=== PATIENT | male | born 1950 | race Caucasian/White ===

== ENCOUNTER 2017-04-29 01:31 | Emergency (ER) | payer MEDICARE, OTHER, MEDICAID ==
[~2017-04-29] VITALS: Ht 177.8 cm; Wt 83.5 kg
[~2017-04-29 01:31] MED LIST: ASPIR-LOW81 MG PO; CRESTOR40 MG PO; FISH OIL 1,0001 EAC2 PO; FLAX OIL1000 MG PO; HUMALOG100 UNIT/1 SUB-Q; LISINOPRIL2.5 MG PO; METOPROLOL SUCC25 MG PO; NIASPAN500 MG PO; VITAMIN D31000 UNIT PO; VITAMIN D32000 UNIT PO; ZOFRAN ODT8 MG PO
[2017-04-29] MEDS ORDERED: ZOFRAN ODT4 MG PO (03:51)
== END 2017-04-29 04:28 | disposition home or self-care (01) ==
LOC: ED 01:31
DX: R11.2 Nausea with vomiting, unspecified (principal); R19.7 Diarrhea, unspecified; E11.9 Type 2 diabetes mellitus without complications; Z88.5 Allergy status to narcotic agent; Z79.82 Long term (current) use of aspirin; Z79.899 Other long term (current) drug therapy
CPT/HCPCS: 80053; 81001; 82010; 83690; 85025; 96361; 96374; 96375; 99284; J2405; J2550; J7030

== ENCOUNTER 2017-05-02 16:55 | Emergency (ER) | payer MEDICARE, OTHER, MEDICAID ==
[~2017-05-02] VITALS: Ht 177.8 cm; Wt 83.5 kg
[~2017-05-02 16:55] MED LIST changes: +ZOFRAN ODT4 MG PO
[2017-05-02] MEDS ORDERED: CLOPIDOGREL75 MG PO (17:16)
[2017-05-02] MEDS ORDERED: PROMETHAZINE HC25 M1 PO (17:17)
[2017-05-02] MEDS ORDERED: ZOFRAN ODT4 MG PO (19:25)
== END 2017-05-02 19:44 | disposition home or self-care (01) ==
LOC: ED 16:55
DX: R42 Dizziness and giddiness (principal); E11.9 Type 2 diabetes mellitus without complications; N19 Unspecified kidney failure; Z88.5 Allergy status to narcotic agent; Z88.8 Allergy status to other drugs, medicaments and biological substances; Z79.4 Long term (current) use of insulin; Z79.82 Long term (current) use of aspirin; Z79.899 Other long term (current) drug therapy
CPT/HCPCS: 80053; 85025; 96361; 96374; 96375; 96376; 99283; J2060; J2405; J7030

== ENCOUNTER 2017-05-06 21:36 | Emergency (ER) | payer MEDICARE, OTHER, MEDICAID ==
[~2017-05-06] VITALS: Ht 177.8 cm; Wt 83.5 kg
[~2017-05-06 21:36] MED LIST changes: +CLOPIDOGREL75 MG PO; +PROMETHAZINE HC25 M1 PO
[2017-05-07] MEDS ORDERED: MECLIZINE HCL25 MG PO (00:06)
[2017-05-07] MEDS ORDERED: TRANSDERM-SCOP1 EACH TD (00:06)
[2017-05-07] MEDS ORDERED: ZOFRAN ODT4 MG PO (00:06)
== END 2017-05-07 00:20 | disposition home or self-care (01) ==
LOC: ED 21:36
DX: H81.10 Benign paroxysmal vertigo, unspecified ear (principal); R11.10 Vomiting, unspecified; E11.9 Type 2 diabetes mellitus without complications; Z88.5 Allergy status to narcotic agent; Z79.899 Other long term (current) drug therapy; Z79.4 Long term (current) use of insulin; Z79.82 Long term (current) use of aspirin
CPT/HCPCS: 36415; 80053; 82010; 82800; 85025; 96361; 96374; 99283; J2405; J7030

== ENCOUNTER 2017-05-12 14:40 | Emergency (ER) | payer MEDICARE, OTHER, MEDICAID ==
[~2017-05-12] VITALS: Ht 177.8 cm; Wt 83.5 kg
[~2017-05-12 14:40] MED LIST changes: +MECLIZINE HCL25 MG PO; +TRANSDERM-SCOP1 EACH TD
[2017-05-12] MEDS ORDERED: DOXYCYCLINE HY100 MG PO (19:40)
--- NOTE | 2017-05-12 20:31 | EKG ---
[facility] [address] [place] [address] Signed Normal sinus rhythm Normal ECG When compared with ECG of 10-FEB-2017 15:37, No significant change was found Confirmed by MURIEL VILLANUEVA MD ([id number]) on 05/12/2017 8:31:39 PM Electronically Signed By: MURIEL VILLANUEVA MD 05/12/172030 PATIENT NAME: MARGARITA PERDOMO JOSE Electrocardiogram DATE OF : 50 PHYSICIAN: MURIEL VILLANUEVA MD REPORT #: [id number] REPORT IS CONFIDENTIAL AND NOT TO BE RELEASED WITHOUT AUTHORIZATION
== END 2017-05-12 20:00 | disposition home or self-care (01) ==
LOC: ED 14:40
DX: E11.621 Type 2 diabetes mellitus with foot ulcer (principal); L97.509 Non-pressure chronic ulcer of other part of unspecified foot with unspecified severity; E11.649 Type 2 diabetes mellitus with hypoglycemia without coma; Z88.5 Allergy status to narcotic agent; Z79.899 Other long term (current) drug therapy; Z79.82 Long term (current) use of aspirin; Z79.4 Long term (current) use of insulin
CPT/HCPCS: 80053; 83605; 84484; 85025; 87040; 93005; 93010; 99284

== ENCOUNTER 2018-01-12 17:18 | Emergency (ER) | payer MEDICARE, OTHER, MEDICAID ==
[~2018-01-12] VITALS: Ht 177.8 cm; Wt 87.1 kg
[~2018-01-12 17:18] MED LIST changes: +DOXYCYCLINE HY100 MG PO
--- NOTE | 2018-01-14 07:25 | EKG ---
[facility] [address] [facility] [place], [place] [address] Signed Sinus rhythm with 1st degree AV block Otherwise normal ECG When compared with ECG of 12-MAY-2017 15:40, No significant change was found Confirmed by ZOË COSBY MD ([id number]) on 01/14/2018 7:25:24 AM Electronically Signed By: ZOË COSBY MD 01/14/18 0725 PATIENT NAME: CONORMARGARITANicolle GARCIA Electrocardiogram DATE OF : 50 PHYSICIAN: ZOË COSBY MD REPORT #: [id number] REPORT IS CONFIDENTIAL AND NOT TO BE RELEASED WITHOUT AUTHORIZATION
== END 2018-01-12 20:48 | disposition home or self-care (01) ==
LOC: ED 17:18
DX: R55 Syncope and collapse (principal); E10.9 Type 1 diabetes mellitus without complications; Z88.5 Allergy status to narcotic agent; Z88.8 Allergy status to other drugs, medicaments and biological substances; Z79.899 Other long term (current) drug therapy
CPT/HCPCS: 80053; 84484; 85025; 93005; 93010; 99284

== ENCOUNTER 2018-11-06 02:45 | Emergency (ER) | payer MEDICARE, OTHER, MEDICAID ==
[~2018-11-06] VITALS: Ht 172.7 cm; Wt 88.5 kg
[~2018-11-06 02:45] MED LIST changes: +FAMOTIDINE40 MG PO; +LISINOPRIL2.5 MG; +NEURONTIN300 MG PO; +SALSALATE500 MG PO
--- OUTSIDE RECORDS SUMMARY | 2018-11-06 02:50 | XMS ---
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 Care History Medical/Surgical 01/22/2018 [facility] - Per patient PCP Dr Zamora "Patient needs IV fluids for hypotension" No one else can help with this per Dr Zamora. - Possible outpatient referral for IV fluids if needed. Care Recommendation: This patient has had 5 or more Emergency Department visits in the last 12 months. Patient requires education on the scope and purpose of the ED as an acute care provider not a Primary Care Provider and should not be utilized for chronic conditions. If patient returns to ED please contact Community Health WorkerAmy at [phone]. These are guidelines and the provider should exercise clinical judgment when providing care. E.D. VISIT COUNT (12 MO.) [address] [facility] TOTAL 3 NOTE: Visits indicate total known visits. ED/UCC VISIT TRACKING (12 MO.) 11/06/2018 02:46 [facility] [place] TYPE: Emergency COMPLAINT: - FALL,DIABETIC ISSUES 10/14/2018 04:49 [facility] [place] TYPE: Emergency COMPLAINT: - ALT LOC DIAGNOSES: - Altered mental status, unspecified - Other intermodal customer service (current) drug therapy - Type 2 diabetes mellitus with ketoacidosis without coma 01/12/2018 17:[address] [facility] TYPE: Emergency COMPLAINT: - SYNCOPE DIAGNOSES: - Type 1 diabetes mellitus without complications - Allergy status to other drugs, medicaments and biological substances status - Syncope and collapse - Other fdc (current) drug therapy - Allergy status to narcotic agent status INPATIENT VISIT TRACKING (12 MO.) 10/14/2018 08:59 [facility] TYPE: General Medicine DIAGNOSES: - Hyperosmolality and hypernatremia - Acute kidney failure with tubular necrosis - Non-ST elevation (NSTEMI) myocardial infarction - Anemia in other chronic diseases classified elsewhere - Acute kidney failure, unspecified - Type 1 diabetes mellitus with diabetic nephropathy - Chronic kidney disease, stage 3 (moderate) - Other specified personal risk factors, not elsewhere classified - DKA coma - Chronic kidney disease, unspecified - Metabolic encephalopathy - Acidosis - Type 1 diabetes mellitus with ketoacidosis without coma - Gastrointestinal hemorrhage, unspecified [email or web address]
[2018-11-06] MEDS ORDERED: LANTUS100 UNITS/ SUB-Q (03:10)
== END 2018-11-06 05:30 | disposition home or self-care (01) ==
LOC: ED 02:45
DX: E11.649 Type 2 diabetes mellitus with hypoglycemia without coma (principal); T38.3X5A Adverse effect of insulin and oral hypoglycemic [antidiabetic] drugs, initial encounter; Z88.5 Allergy status to narcotic agent; Z91.09 Other allergy status, other than to drugs and biological substances; Z79.4 Long term (current) use of insulin; Z79.899 Other long term (current) drug therapy; Z23 Encounter for immunization
CPT/HCPCS: 70450; 80053; 81001; 85025; 90471; 90715; 96374; 99285-25

== ENCOUNTER → 2018-11-16 | Emergency (ER) | payer MEDICARE, OTHER, MEDICAID ==
[~2018-11-16] VITALS: Ht 172.7 cm; Wt 88.5 kg
[~2018-11-16] MED LIST changes: +LANTUS100 UNITS/ SUB-Q
--- OUTSIDE RECORDS SUMMARY | 2018-11-16 13:52 | XMS ---
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 Care History Medical/Surgical 01/22/2018 [facility] - Per patient PCP Dr Lester "Patient needs IV fluids for hypotension" No one else can help with this per Dr Lester. - Possible outpatient referral for IV fluids [...] returns to ED please contact Community Health Worker Amy at [phone]. These are guidelines and the provider should exercise clinical judgment when providing care. E.D. VISIT COUNT (12 MO.) 4 [facility] TOTAL 4 NOTE: Visits indicate total known visits. ED/UCC VISIT TRACKING (12 MO.) 11/16/2018 13:49 [facility] [place] TYPE: Emergency COMPLAINT: - DIABETIC PROBLEM 11/06/2018 02:46 [facility] [place] TYPE: Emergency COMPLAINT: - FALL,DIABETIC ISSUES DIAGNOSES: - Hypoglycemia, unspecified - Allergy status to narcotic agent status - buttermaker helper (current) use of insulin - Other allergy status, other than to drugs and biological substances - Type 2 diabetes mellitus with hypoglycemia without coma - Adverse effect of insulin and oral hypoglycemic [antidiabetic] drugs, initial encounter - Encounter for immunization - Other fci (current) drug therapy 10/14/2018 04:49 [facility] [place] TYPE: Emergency COMPLAINT: - ALT LOC DIAGNOSES: - Altered mental status, unspecified - Other longshore equipment operator (current) drug therapy - Type 2 diabetes mellitus with ketoacidosis without coma 01/12/2018 17:19 [facility] [place] TYPE: Emergency COMPLAINT: - SYNCOPE DIAGNOSES: - Type 1 diabetes mellitus without complications - Allergy status to other drugs, medicaments and biological substances status - Syncope and collapse - Other fci (current) drug therapy - Allergy status to narcotic agent status INPATIENT VISIT TRACKING (12 MO.) 10/14/2018 08:59 [facility] [place] TYPE: General Medicine DIAGNOSES: - Hyperosmolality and [...] ketoacidosis without coma - Gastrointestinal hemorrhage, unspecified [id number]
== END ==
LOC: ED 13:49
DX: E10.9 Type 1 diabetes mellitus without complications (principal); Z91.09 Other allergy status, other than to drugs and biological substances; Z88.5 Allergy status to narcotic agent; Z79.4 Long term (current) use of insulin
CPT/HCPCS: 80053; 82010; 82800; 85025; 96360; 99284-25; J7030

== ENCOUNTER 2019-01-04 14:48 | Inpatient (IN) | payer MEDICARE, OTHER ==
[~2019-01-04] VITALS: Ht 172.7 cm; Wt 88.5 kg
--- OUTSIDE RECORDS SUMMARY | 2019-01-04 14:50 | XMS ---
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 Care History Medical/Surgical 01/22/2018 [facility] - Per patient PCP Dr Zamora "Patient [...] ED please contact Community Health WorkerAmy at [phone]. These are guidelines and the provider should exercise clinical judgment when providing care. E.D. VISIT COUNT (12 MO.) 5 [facility] TOTAL 5 NOTE: Visits indicate total known visits. ED/UCC VISIT TRACKING (12 MO.) 01/04/2019 14:49 [facility] [place] TYPE: Emergency COMPLAINT: - BLOOD SUGAR PROBLEM 11/16/2018 13:49 [facility] [place] TYPE: Emergency COMPLAINT: - DIABETIC PROBLEM DIAGNOSES: - Type 1 diabetes mellitus without complications - alf (current) use of insulin - Hyperglycemia, unspecified - Other allergy status, other than to drugs and biological substances - Allergy status to narcotic agent status 11/06/2018 02:46 [facility] [place] TYPE: Emergency COMPLAINT: - FALL,DIABETIC ISSUES DIAGNOSES: - Hypoglycemia, unspecified - Allergy status to narcotic agent status - alf (current) use of insulin - Other allergy status, other than to drugs and biological substances - Type 2 diabetes mellitus with hypoglycemia without coma - Adverse effect of insulin and oral hypoglycemic [antidiabetic] drugs, initial encounter - Encounter for immunization - Other moth exterminator (current) drug therapy 10/14/2018 04:49 [facility] [place] TYPE: Emergency COMPLAINT: - ALT LOC DIAGNOSES: - Altered mental status, unspecified - Other detention (current) drug therapy - Type 2 diabetes mellitus with ketoacidosis without coma 01/12/2018 17:19 [facility] [place] TYPE: Emergency COMPLAINT: - SYNCOPE DIAGNOSES: - Type 1 diabetes mellitus without complications - Allergy status to other drugs, medicaments and biological substances status - Syncope and collapse - Other moth exterminator (current) drug therapy - Allergy status to narcotic agent status INPATIENT VISIT TRACKING (12 MO.) 10/14/2018 08:59 [facility] TYPE: General Medicine DIAGNOSES: - Hyperosmolality and [...] ketoacidosis without coma - Gastrointestinal hemorrhage, unspecified [email or web address]
--- NOTE | 2019-01-04 19:23 | NUR ---
MEDICATIONS GIVEN (SEE MAR). BOTH IVS FLUSHED WITH BRISK BLOOD RETURN. SIDE RAILS UP. CALL LIGHT WITHIN REACH.
--- NOTE | 2019-01-04 20:00 | NUR ---
RECEIVED REPORT AT 1900, PT JUST CAME UP FROM ED. INSULIN DRIP IS RUNNING. PT HAS EXHIBITED SOME INAPROTRIATE GROPPING BEHAVIOR WITH CHIEF ESTIMATOR AFTER ARRIVING ON FLOOR. NO NEW CONCERNS NOTED SO FAR.
--- NOTE | 2019-01-04 20:59 | NUR ---
I did patients blood sugar check and it was at a reading of 205.
--- NOTE | 2019-01-04 22:00 | NUR ---
PT AT THIS TIME HAS NOT VOIDED SO FAR SINCE START OF THIS SHIFT. FLUID BOLUS TO BE GIVEN. WILL CONTINUE TO MONITOR. ALL LOBES ARE CLEAR BUT DIMINISHED. PT DID NOT PUT FORTH MUCH EFFORT FOR DEEP BREATHING DURING AUSCULTATION. PT IS ORINETED TO PLACE, SELF AND CIRCUMSTANCE ONLY. ABD SOUNDS ARE PRESENT. NO PERIPHERAL EDEMA NOTED. OVERALL STRENGTH +4. WILL CONTINUE TO MONITOR NEUROLOGICAL STATUS.
--- NOTE | 2019-01-04 22:20 | NUR ---
RN Journeyman Level Acoustic Analyst Kaiden, and myself checked patient for incontience and there was no result.
--- NOTE | 2019-01-04 22:48 | NUR ---
i updated LEANA Hope and she suggested we do a bladder scan because of no output. we will do this at 2300.
--- NOTE | 2019-01-05 | NUR ---
PT AT THIS TIME IS SLEEPING. PT SO FAR HAS VOIDED 350ML USING THE URINAL. PT IS ORINETED TO PLACE, PERSON AND CIRCUMSTANCE STILL AT THIS TIME. AT TIMES THE ANSWERS GIVEN BY PT DO NOT MATCH THE QUESTIONS ASKED BY WRAP YARN SORTER. WILL CONTINUE TO MONITOR. I WONDER WHAT THIS PT'S BASELINE IS. V/S ARE WDL, ALL LOBES ARE CLEAR, NO EDEMA NOTED.
--- NOTE | 2019-01-05 02:00 | NUR ---
PT IS SLEEPING AT THIS TIME. 3G IV MG+2 GIVEN, K+ IV IS STILL RUNNING. LAST BG WAS 116. INSULIN DRIP AT 0.6.
--- NOTE | 2019-01-05 04:00 | NUR ---
PT IS SLEEPING AT THIS TIME. V/S ARE WDL OVERALL. PT HOWEVER DID HAVE A COUPLE OF EPISODES OF DEREK IT SEEMS. O2 SATS DROPPED INTO THE LOW 80'S WHILE SLEEPING.
--- NOTE | 2019-01-05 05:41 | NUR ---
SINCE ARRIVAL ON FLOOR AT 1850, PT HAS BEEN ON AN INSULIN DRIP. PT HAS ALSO RECEIVED 1L LR BOLUS, K+ 40MEQ, MAG+2 3G. PT IS ORIENTED TO PLACE, PERSON AND CIRCUMSTANCE. PT HOWEVER DOES NOT ALWAYS ANSWER PROPERLY TO QUESTIONS ASKED. OVERALL STRENGTH +4. A MILD TREMOR WAS NOTED IN HIS RIGHT ARM AT TIMES. V/S ORVERALL ARE WDL, URINE OUTPUT IS ADEQUATE. LOBES ARE CLEAR, ABD SOUNDS ARE PRESENT. UNK WHEN LAST BM WAS. PT BEHAVIOR/ COMMENTS AT TIMES ARE INAPROPRIATE TOWARD STAFF. THESE COMMENTS ARE SEXUAL IN NATURE. NO NEW CONCERNS NOTED AT THIS TIME.
--- NOTE | 2019-01-05 07:30 | NUR ---
report recieved. patient is restful IN BED. IVF/INSULIN GTT PATIENT. NO DISTRESS NOTED.
--- NOTE | 2019-01-05 08:00 | NUR ---
ACCUCHECK-188. INSULIN GTT INCREASED TO 2.8 PER PROTOCOL. ASSESSMENT DONE. PATIENT IS DROWSY. REMAINS NPO.
--- NOTE | 2019-01-05 09:00 | NUR ---
ACCUCHECK 177. INSULIN GTT 2.4 UNITS/HR. NO CHANGES.
--- NOTE | 2019-01-05 10:00 | NUR ---
162 IS ACCUCHECK. INSULIN GTT TO 1 UNIT. SITTING UP IN BED WATCHING TV.
[2019-01-05] MEDS ORDERED: LYRICA100 MG PO (10:52)
[2019-01-05] MEDS ORDERED: FAMOTIDINE40 MG PO (10:52)
[2019-01-05] MEDS ORDERED: ROSUVASTATIN CA40 MG PO (10:53)
[2019-01-05] MEDS ORDERED: CLOPIDOGREL75 MG PO (10:53)
--- NOTE | 2019-01-05 11:00 | NUR ---
ACCUCHECK-151, INSUIN GTT REMAINS AT 1 UNIT HR.
--- NOTE | 2019-01-05 12:00 | NUR ---
ASSESSMENT UNCHANGED. ACCUCHECK-163. INSULIN GTT INREASED TO 1.2 UNITS/HR
--- NOTE | 2019-01-05 12:19 | NUR ---
MED REC COMPLETE
--- NOTE | 2019-01-05 13:00 | NUR ---
VOIDED 300 ML OF COLTON URINE. TRANSFERRED TO CHAIR WITH ASSIST. SPONGE BATH GIVEN. ACCUCHECK-170.INSULIN GTT REMAINS AT 1.2 UNITS/HR. REMAINS ON Q 1 HR ACCUCHECKS.
--- NOTE | 2019-01-05 13:15 | NUR ---
DR. GUNN HERE TO SEE PATIENT.
--- NOTE | 2019-01-05 13:30 | NUR ---
ORDERS RECIEVED TO DC INSULIN GTT AND IVF. THIS DONE. PATIENT IS TO USE HIS OWN INSULIN PUMP HE DOES AT HOME. WITH LAST ACCUCHECK BEING 170. PATIENT INSULIN PUMP TO GIVE 1.1 UNIT INSULIN. THIS DONE. PATIENT IS NOT SURE WHAT THE BASAL RATE IS OR HOW TO TELL WHAT THE RATE IS. WILL RECHECK ACCUCHECK AT 1400.
--- NOTE | 2019-01-05 15:00 | NUR ---
ACCUCHECK-231. BOLUS WITH 1.6 UNITS INSULIN VIA PATIENT PUMP. PUMP INDICATES DELIVERY.
--- NOTE | 2019-01-05 15:35 | NUR ---
AGNIESZKA MARTIN RN HERE TO HELP REVIEW PATIENT INSULIN PUMP, BASAL RATE-1.5 UNITS ACCORDING TO PUMP. PATIENT IS HAVING MANY QUESTIONS ON HOW TO UES INSULIN PUMP. DR. TORO IN [place] IS PT FOREIGN TRADE TEACHER. WILL CONTINUE TO MONITOR Q 1 HR BLOOD SUGAR.
--- NOTE | 2019-01-05 17:00 | NUR ---
accucheck-252. PATIENT IS TALKING WITH METTONICS ON PHONE.
--- NOTE | 2019-01-05 17:20 | NUR ---
PATIENT LOST CONNECTION ON PHONE WHEN TALKING TO [employer]. CLEAR LIQUID TRAY GIVEN.
--- NOTE | 2019-01-05 17:53 | NUR ---
PATIENT HAS INSULIN PUMP OFF AT THIS TIME, HE WORKING TO SEE IF THE PUMP IN WORKING. PATIENT PROGRAM PUMP TO EXPELL 5 UNIT OF INSULIN, APPEARS TO BE WORKING. ENCOURAGED TO REAPPLIED PUMP.
--- NOTE | 2019-01-05 18:00 | NUR ---
[facility]
--- NOTE | 2019-01-05 18:20 | NUR ---
GAVE SELF BOLUS OF2.4 UNITS. ENCOUAGED TO USE INSULIN PUMP.
--- NOTE | 2019-01-05 18:45 | NUR ---
INSULIN PUMP DC'D PER ORDERS. WILL START ACCUCHECKS AC AND HS. INSULIN WITH SS.
--- NOTE | 2019-01-05 20:34 | NUR ---
HAS BEEN SITTING IN CHAIR, LORNE WELL. WHEN ASKED AFFIRMED WAS HUNGRY, GIVEN TURKEY SANDWICH AND APPLE SAUCE.
--- NOTE | 2019-01-05 21:40 | NUR ---
BS 338, GIVEN 9 UNITS INSULIN PER ORDER. CONT TO WANT TO SIT UP IN CHAIR.
--- NOTE | 2019-01-05 23:22 | NUR ---
PT BACK TO BED, HAD SMALL AMT DIFFICULTY GETTING TO FEET BUT WAS STEADY ONCE UP. NO C/O.
--- NOTE | 2019-01-06 00:59 | NUR ---
SLEEPING, SNORING SOFTLY.
--- NOTE | 2019-01-06 02:31 | NUR ---
CONT TO SLEEP MOST OF TIME.
--- NOTE | 2019-01-06 04:17 | NUR ---
IS ASLEEP. NO CHANGE.
--- NOTE | 2019-01-06 05:25 | NUR ---
AWAKENED FOR VS. VOIDING LARGE AMT URINE. WHEN DISCUSSED POSS DISCHARGE TODAY OR TOMORROW PT STATES THAT IS OK BUT HIS INSULIN SUPPLIES ARE LOCKED IN HIS GUN LOCKER AND HE STILL CAN'T REMEMBER THE COMBINATION.HE KEEP SUPPLEIS LOCKED UP IN CASE OF POTENTIAL THEFT. PT STATES IS LOOKING FORWARD TO BREAKFAST.
--- NOTE | 2019-01-06 06:37 | NUR ---
PT HAD A GOOD NIGHT, SLEPT WELL. HAS BEEN VOIDING LARGE AMTS URINE. IS CONCERNED THAT HE STILL CAN'T REMEMBER TO SAFE AT HOME WHERE HE KEEPS HIS INSULIN SUPPLIES. LOOKING FORWARD TO BREAKFAST.
--- NOTE | 2019-01-06 09:56 | NUR ---
TOOK BREAKFAST WELL. IS W/O PAIN.
--- NOTE | 2019-01-06 10:00 | NUR ---
RESTFUL. WATCHING TV. IS W/O R/O, C/O.
--- NOTE | 2019-01-06 11:15 | NUR ---
UP TO SHOWER.
--- NOTE | 2019-01-06 12:00 | NUR ---
TOLERATED SHOWER WELL. SITTING UP IN CHAIR FOR LUNCH. ACCUCHECK-320. HUMALOG 7 UNITS SQ GIVEN. ASSESSMENT UNCHANGED.
--- NOTE | 2019-01-06 12:20 | CONS ---
[facility] [address] [place], [place] [address] Signed DATE OF CONSULTATION: 01/05/2019 PROBLEM: At least one episode of possible hematemesis. HISTORY OF PRESENT ILLNESS: This 68-year-old white man was admitted yesterday having presented to the emergency room, initially evaluated by Dr. Rios. He had been seen in the emergency room on few occasions with elevated serum glucose of greater than 500, known to have diabetes and with an insulin pump. He was admitted by Dr. Berman for further management considering he had clinical findings of diabetic ketoacidosis with a blood sugar of 538 at presentation, relative acidosis with a pH of 7.32, and a bicarb of 15.8 and elevated creatinine of 2.16. The patient says that he recently underwent a change of his insulin pump to an older model that he believes was nonfunctional. He has been in the intensive care unit with insulin therapy, IV fluid resuscitation, and close monitoring. He is currently getting Humulin regular insulin intravenously by drip. The patient described a fair amount of protracted nausea and vomiting prior to arrival to the hospital and described what sounds like a small amount of hematemesis. He denies any blood per rectum and has had no further such episodes. Concern was maintained by Dr. Berman. This may represent a Christine-Jon tear or something of that sort. The patient's initial hematocrit was 36.7, currently 33.0 with no further episodes of hematemesis. His platelet count is normal at 205877. The patient has no prior history of endoscopic evaluation (he thinks). He has no epigastric or upper abdominal pain and no dysphagia. He has no lower abdominal pain either. His primary physician is Dr. Lester. REVIEW OF SYSTEMS: He denies any shortness of breath or chest pain. He has no nausea or current vomiting. Denies any further hematemesis or blood per rectum. Denies any chest pain. PHYSICAL EXAMINATION: GENERAL: This is a pleasant, alert, oriented man who does not look to be systemically toxic at this time. He has a white benitez. HEENT: Mucous membranes are moist. Trachea is midline. There is no carotid bruit. CHEST: Clear. HEART: Regular. ABDOMEN: Soft and nondistended without sign of ascites. There is no focal mass or tenderness. EXTREMITIES: Showed no clubbing, cyanosis, or edema. There are no petechiae. Electronically Signed By: DICK HUANG MD 01/06/19 1220 PATIENT NAME: MARGARITA PERDOMO CONSULTATION DATE OF : 50 REPORT #: [id number] PHYSICIAN: DICK HUANG MD PCP: VERNON LESTER MD REPORT IS CONFIDENTIAL AND NOT TO BE RELEASED WITHOUT AUTHORIZATION [facility] [address] [place], [place] [address] Signed LABORATORY DATA: Shows a white count of 10.1, hematocrit 33.0, stable since last night at same level. Platelets 162,000. Chemistries from today show improvement of creatinine to 1.60. Serum glucose 168. ASSESSMENT: The patient isolated episode of hematemesis was not much and apparently not continuing. It followed a fair amount of retching and forceful vomiting. This may well represent a Christine-Jon tear as suspected by Dr. Berman. Although upper endoscopy could be done to confirm this, it may be reasonable to hold off endoscopic evaluation for the time being as he is symptom free. Has no further bleeding and his hematocrit is stable at 33. Further attention to his DKA management would certainly be a major priority. I will review this with Dr. Berman. If he still wishes to proceed with endoscopy, certainly can be arranged. MD VITO Deluca/SOLEDADL /[id number] cc: MD Wei Kilpatrick MD Copies: VERNON LESTER MD, BRIAN DO ~ Electronically Signed By: DICK HUANG MD 01/06/19 1220 PATIENT NAME: MARGARITA PERDOMO CONSULTATION DATE OF : 50 REPORT #: [id number] PHYSICIAN: DICK UHANG MD PCP: VERNON LESTER MD REPORT IS CONFIDENTIAL AND NOT TO BE RELEASED WITHOUT AUTHORIZATION
--- NOTE | 2019-01-06 13:00 | NUR ---
TRANSFER ORDERS TO MEDICAL FLOOR RECIEVED. PATIENT SITTING IN CHAIR EATING LUNCH. DENIES PROBLEMS.
--- NOTE | 2019-01-06 15:00 | NUR ---
REPORT GIVEN TO MEDICAL FLOOR.
--- NOTE | 2019-01-06 15:05 | NUR ---
AMBULATED TO MEDICAL FLOOR ACCOMP BY RN. IS VERY STABLE ON FEET. ARRIVED TO ROOM 123 W/O PROBLEMS.
--- NOTE | 2019-01-06 15:08 | NUR ---
PT ARRIVED TO FLOOR. AMBULATED WITH CANE. VITAL SIGNS TAKEN. STABLE. ORIENTED TO ROOM. ASSESSMENT COMPLETED. WATER GIVEN. CALL LIGHT IN REACH.
--- NOTE | 2019-01-06 20:13 | NUR ---
PT UTILIZES CALL LIGHT TO USE BATHROOM. INK BLENDER TO ROOM PT STATES THAT HE ALREADY WE HIS ATTENDS. PT REQUESTS URINAL TO FINISH VOIDING. PT ABLE TO USE URINAL APPROPRIATELY IN BED. NEW ATTENDS PLACED. PT ASSESSMENT COMPLETE. PT DENIES PAIN, NAUSEA, OR SOB. PT REPORTS NO BM SINCE PRIOR TO ADMISSION. DENIES FEELING S/SX OF CONSTIPATION. PT STATES THAT HE HAS CHRONIC NEUROPATHIES, NUMBNESS AND TINGLING TO BILATERAL HANDS AND FEET. PT DENIES FURTHER NEEDS AT THIS TIME. DISCUSSED PLAN OF CARE FOR THIS SHIFT. PT DENIES QUESTIONS. CALL LIGHT WITHIN REACH.
--- NOTE | 2019-01-07 00:05 | NUR ---
PT RESTING IN BED WITH EYES CLOSED, SNORING AUDBILY FROM DOORWAY. PT APPEARS TO BE SLEEPING. CALL LIGHT WITHIN REACH.
--- NOTE | 2019-01-07 02:04 | NUR ---
PT ASSESSMENT COMPLETE. PT DENIES PAIN, NAUSEA, OR SOB. ASSESSMENT UNCHANGED FROM PREVIOUS. WARM BLANKET PROVIDED AND URINAL EMPTIED. PT DENIES FURTHER NEEDS. CALL LIGHT IN REACH.
--- NOTE | 2019-01-07 05:41 | NUR ---
PT RESTING IN BED WITH EYES CLOSED. RESPIRATIONS EVEN AND UNLABORED. PT APPEARS TO BE SLEEPING. DOES NOT WAKE WHILE PENSIONHOLDER INFORMATION CLERK IN DOORWAY. CALL LIGHT IN REACH.
--- NOTE | 2019-01-07 08:15 | NUR ---
PT SITTING UP AT EDGE OF BED EATING BREAKFAST. ALERT AND ORIENTED TO ALL. DENIES PAIN OR OTHER CONCERNS AT THIS TIME. IV SL, FLUSHES WELL. PT EXPRESSES FRUSTRATION AT INSULIN PUMP "NOT WORKING RIGHT". QUESTIONS ANSWERED. CALL LIGHT WITHIN REACH. ASSESSMENT COMPLETED, BENIGN.
--- NOTE | 2019-01-07 10:14 | NUR ---
PT SITTING UP IN RECLINER WATCHING TV. DENIES NEEDS OR CONCERNS AT THIS TIME. CALL LIGHT WITHIN REACH.
[2019-01-07] MEDS ORDERED: LEVEMIR100 UNIT/1 SUB-Q (11:13)
[2019-01-07] MEDS ORDERED: FREESTYLE FREE1 EAC1 MISC (11:14)
[2019-01-07] MEDS ORDERED: FREESTYLE LITE1 EAC1 XX (11:14)
[2019-01-07] MEDS ORDERED: HUMALOG100 UNIT/1 SUB-Q (11:19)
[2019-01-07] MEDS ORDERED: INSULIN SYRING1 EA47 MISC (11:22)
== END 2019-01-07 12:34 | disposition home or self-care (01) | DRG 919 ==
LOC: ED 14:48 → CCU 17:46 → MS 17:46
PROVIDERS: ADMIT Student in an Organized Health Care Education/Training Program
DX: T85.614A Breakdown (mechanical) of insulin pump, initial encounter (principal); E10.10 Type 1 diabetes mellitus with ketoacidosis without coma; G92 Toxic encephalopathy; K22.6 Gastro-esophageal laceration-hemorrhage syndrome; I25.10 Atherosclerotic heart disease of native coronary artery without angina pectoris; E10.22 Type 1 diabetes mellitus with diabetic chronic kidney disease; N18.3 Chronic kidney disease, stage 3 (moderate); E78.5 Hyperlipidemia, unspecified; N28.9 Disorder of kidney and ureter, unspecified; Z91.19 Patient's noncompliance with other medical treatment and regimen; Z95.1 Presence of aortocoronary bypass graft; Z79.02 Long term (current) use of antithrombotics/antiplatelets; Z79.899 Other long term (current) drug therapy; Z88.5 Allergy status to narcotic agent
CPT/HCPCS: 36415; 36600; 51798; 80048; 80053; 81001; 82010; 82803; 83735; 84100; 85025; 86850; 86900; 86901; 96374; 96375; 96376; 97161; 97165; 99285-25; C9113; J1815; J2405; J2550; J3475; J3480; J7030; J7042; J7120

== ENCOUNTER 2019-01-13 11:36 | Emergency (ER) | payer MEDICARE, OTHER ==
[~2019-01-13] VITALS: Ht 172.7 cm; Wt 88.5 kg
[~2019-01-13 11:36] MED LIST changes: +FREESTYLE FREE1 EAC1 MISC; +FREESTYLE LITE1 EAC1 XX; +INSULIN SYRING1 EA47 MISC; +LEVEMIR100 UNIT/1 SUB-Q; +LYRICA100 MG PO; +ROSUVASTATIN CA40 MG PO
--- OUTSIDE RECORDS SUMMARY | 2019-01-13 11:38 | XMS ---
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 Security Hat And Cap Drying Room Attendant Events No recent Security Events currently on file CRITERIA MET - Group Notification - [facility] - Has Care Guidelines - [facility] - 2 Visits in 30 Days CARE PROVIDERS Cristina Alex Die Assembler/Accounts Payable Assistant 11/29/2018-Current PHONE: [phone] VERNON ZAMORA [facility] 11/06/2018-Current PHONE: Unknown Cristina Alex Primary Care 11/29/2018-Current PHONE: [phone] Dr Zamora Primary Care Current PHONE: [phone] Andrew Primary Care Current JodyTajjosiane PHONE: Unknown Ivana has no Care Guidelines for this patient. Care History Medical/Surgical 01/22/2018 [facility] - Per patient PCP Dr Zamora [...] ED please contact Community Health WorkerAmy at [phone]. These are guidelines and the provider should exercise clinical judgment when providing care. E.D. VISIT COUNT (12 MO.) 5 [facility] TOTAL 5 NOTE: Visits indicate total known visits. ED/UCC VISIT TRACKING (12 MO.) 01/13/2019 11:36 [facility] [place] TYPE: Emergency COMPLAINT: - FALL/HEAD PAIN/LEFT SHOULDER 01/04/2019 14:49 [facility] [place] TYPE: Emergency COMPLAINT: - BLOOD SUGAR PROBLEM 11/16/2018 13:49 [facility] [place] TYPE: Emergency COMPLAINT: - DIABETIC PROBLEM DIAGNOSES: - Type 1 diabetes mellitus without complications - director long term care (current) use of insulin - Hyperglycemia, unspecified - Other allergy status, other than to drugs and biological substances - Allergy status to narcotic agent status 11/06/2018 02:46 [facility] [place] TYPE: Emergency COMPLAINT: - FALL,DIABETIC ISSUES DIAGNOSES: - Hypoglycemia, unspecified - Allergy status to narcotic agent status - half-way (current) use of insulin - Other allergy status, other than to drugs and biological substances - Type 2 diabetes mellitus with hypoglycemia without coma - Adverse effect of insulin and oral hypoglycemic [antidiabetic] drugs, initial encounter - Encounter for immunization - Other care home (current) drug therapy 10/14/2018 04:49 [facility] [place] TYPE: Emergency COMPLAINT: - ALT LOC DIAGNOSES: - Altered mental status, unspecified - Other exterminator helper termite (current) drug therapy - Type 2 diabetes mellitus with ketoacidosis without coma INPATIENT VISIT TRACKING (12 MO.) 01/04/2019 17:[address] [facility] [place] TYPE: Medical Surgical COMPLAINT: - DKA DIAGNOSES: - Breakdown (mechanical) of insulin pump, initial encounter - Toxic encephalopathy - Type 1 diabetes mellitus with diabetic chronic kidney disease - Gastro-esophageal laceration-hemorrhage syndrome - Chronic kidney disease, stage 3 (moderate) - Disorder of kidney and ureter, unspecified - Allergy status to narcotic agent status - Gastro-esophageal laceration-hemorrhage syndrome - half-way (current) use of antithrombotics/antiplatelets - Patient's noncompliance with other medical treatment and regimen - Atherosclerotic heart disease of [place] coronary artery without angina pectoris - Type 1 diabetes mellitus with ketoacidosis without coma - half-way (current) use of antithrombotics/antiplatelets - Chronic kidney disease, stage 3 (moderate) - Patient's noncompliance with other medical treatment and regimen - Other care home (current) drug therapy - Toxic encephalopathy - Hyperlipidemia, unspecified - Presence of aortocoronary bypass graft - Disorder of kidney and ureter, unspecified - Hyperlipidemia, unspecified - Allergy status to narcotic agent status - Breakdown (mechanical) of insulin pump, initial encounter - Atherosclerotic heart disease of [place] coronary artery without angina pectoris - Presence of aortocoronary bypass graft - Other care home (current) drug therapy - Type 1 diabetes mellitus with diabetic chronic kidney disease [facility] TYPE: General Medicine DIAGNOSES: - Hyperosmolality and [...] ketoacidosis without coma - Gastrointestinal hemorrhage, unspecified [email or web address]
[2019-01-13] MEDS ORDERED: PERCOCET 5-3251 EACH PO (13:41)
[2019-01-13] MEDS ORDERED: ONDANSETRON ODT8 MG PO (13:41)
== END 2019-01-13 14:00 | disposition home or self-care (01) ==
LOC: ED 11:36
DX: S22.32XA Fracture of one rib, left side, initial encounter for closed fracture (principal); Z88.5 Allergy status to narcotic agent; E10.9 Type 1 diabetes mellitus without complications; Z95.1 Presence of aortocoronary bypass graft; Z91.09 Other allergy status, other than to drugs and biological substances; Z79.899 Other long term (current) drug therapy; W06.XXXA Fall from bed, initial encounter
CPT/HCPCS: 70450; 71250; 99284-25

== ENCOUNTER 2019-02-21 15:03 | Emergency (ER) | payer MEDICARE, OTHER ==
[~2019-02-21] VITALS: Ht 172.7 cm; Wt 88.5 kg
[~2019-02-21 15:03] MED LIST changes: +ONDANSETRON ODT8 MG PO; +PERCOCET 5-3251 EACH PO
[2019-02-21] MEDS ORDERED: LEXAPRO10 MG PO (15:24)
--- OUTSIDE RECORDS SUMMARY | 2019-02-21 18:32 | XMS ---
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 Security Laborer Aquatic Life Events No recent Security Events currently on file CRITERIA MET - Group Notification - 6 ED Visits in 6 Months - [facility] CARE PROVIDERS Cristina Alex Real Estate Management Specialist/High Speed Operator 11/29/2018-Current PHONE: [phone] Cristina Alex Real Estate Management Specialist/High Speed Operator 11/29/2018-Current PHONE: [phone] [facility]/06[facility]-Current PHONE: Unknown Cristina Alex Primary Care 11/29/2018-Current PHONE: [phone] Dr Zamora Primary Care Current PHONE: [phone] Andrew Primary Care Current IonescuTajti PHONE: Unknown Ivana has no Care Guidelines for this patient. Care History Medical/Surgical 01/22/2018 [facility] - Per patient PCP Dr Zamora "Patient [...] ED please contact Community Health WorkerAmy at [phone]. These are guidelines and the provider should exercise clinical judgment when providing care. E.D. VISIT COUNT (12 MO.) [address] [facility] TOTAL 6 NOTE: Visits indicate total known visits. ED/UCC VISIT TRACKING (12 MO.) 02/21/2019 15:04 [facility] [place] TYPE: Emergency COMPLAINT: - BS ISSUE 01/13/2019 11:36 [facility] [place] TYPE: Emergency COMPLAINT: - FALL/HEAD PAIN/LEFT SHOULDER DIAGNOSES: - Fall from bed, initial encounter - Presence of aortocoronary bypass graft - Type 1 diabetes mellitus without complications - Other allergy status, other than to drugs and biological substances - Other fdc (current) drug therapy - Dizziness and giddiness - Allergy status to narcotic agent status - Fracture of one rib, left side, initial encounter for closed fracture 01/04/2019 14:49 [facility] [place] TYPE: Emergency COMPLAINT: - BLOOD SUGAR PROBLEM 11/16/2018 13:49 [facility] [place] TYPE: Emergency COMPLAINT: - DIABETIC PROBLEM DIAGNOSES: - Type 1 diabetes mellitus without complications - USP (current) use of insulin - Hyperglycemia, unspecified - Other allergy status, other than to drugs and biological substances - Allergy status to narcotic agent status 11/06/2018 02:46 [facility] [place] TYPE: Emergency COMPLAINT: - FALL,DIABETIC ISSUES DIAGNOSES: - Hypoglycemia, unspecified - Allergy status to narcotic agent status - USP (current) use of insulin - Other allergy status, other than to drugs and biological substances - Type 2 diabetes mellitus with hypoglycemia without coma - Adverse effect of insulin and oral hypoglycemic [antidiabetic] drugs, initial encounter - Encounter for immunization - Other traffic analyst (current) drug therapy 10/14/2018 04:49 [facility] [place] TYPE: Emergency COMPLAINT: - ALT LOC DIAGNOSES: - Altered mental status, unspecified - Other fdc (current) drug therapy - Type 2 diabetes mellitus with ketoacidosis without coma INPATIENT VISIT TRACKING (12 MO.) 01/04/2019 17:46 [facility] [place] TYPE: Medical Surgical COMPLAINT: - DKA DIAGNOSES: - Breakdown (mechanical) of insulin pump, initial encounter - Toxic encephalopathy - Type 1 diabetes mellitus with diabetic chronic kidney disease - Gastro-esophageal laceration-hemorrhage syndrome - Chronic kidney disease, stage 3 (moderate) - Disorder of kidney and ureter, unspecified - Allergy status to narcotic agent status - Gastro-esophageal laceration-hemorrhage syndrome - USP (current) use of antithrombotics/antiplatelets - Patient's noncompliance with other medical treatment and regimen - Atherosclerotic heart disease of [place] coronary artery without angina pectoris - Type 1 diabetes mellitus with ketoacidosis without coma - USP (current) use of antithrombotics/antiplatelets - Chronic kidney disease, stage 3 (moderate) - Patient's noncompliance with other medical treatment and regimen - Other fdc (current) drug therapy - Toxic encephalopathy - Hyperlipidemia, unspecified - Presence of aortocoronary bypass graft - Disorder of kidney and ureter, unspecified - Hyperlipidemia, unspecified - Allergy status to narcotic agent status - Breakdown (mechanical) of insulin pump, initial encounter - Atherosclerotic heart disease of [place] coronary artery without angina pectoris - Presence of aortocoronary bypass graft - Other fdc (current) drug therapy - Type 1 diabetes mellitus with diabetic chronic kidney disease 10/14/2018 08:59 [facility] TYPE: General Medicine DIAGNOSES: - [...] ketoacidosis without coma - Gastrointestinal hemorrhage, unspecified [email or web address]
--- NOTE | 2019-02-22 13:58 | EKG ---
[facility] [address] [facility] [place] [address] Signed Sinus bradycardia with 1st degree AV block Otherwise normal ECG When compared with ECG of 14-OCT-2018 04:58, IA interval has increased Vent. rate has decreased BY 61 BPM Criteria for Septal infarct are no longer present ST no longer depressed in Lateral leads T wave amplitude has decreased in Anterolateral leads Confirmed by CRISTIAN GUNN DO ([id number]) on 02/22/2019 1:58:00 PM Electronically Signed By: CRISTIAN GUNN DO 02/22/19 1358 PATIENT NAME: MARGARITA PERDOMO Electrocardiogram DATE OF : 50 PHYSICIAN: CRISTIAN GUNN DO REPORT #: [id number] REPORT IS CONFIDENTIAL AND NOT TO BE RELEASED WITHOUT AUTHORIZATION
== END 2019-02-21 18:31 | disposition home or self-care (01) ==
LOC: ED 15:03
DX: S00.01XA Abrasion of scalp, initial encounter (principal); E86.0 Dehydration; R55 Syncope and collapse; R42 Dizziness and giddiness; W19.XXXA Unspecified fall, initial encounter; E10.9 Type 1 diabetes mellitus without complications; Z88.5 Allergy status to narcotic agent; Z88.8 Allergy status to other drugs, medicaments and biological substances; Z79.4 Long term (current) use of insulin; Z79.899 Other long term (current) drug therapy
CPT/HCPCS: 70450; 80053; 84484; 85025; 93005; 93010; 96360; 96361; 99284-25; J7030

== ENCOUNTER 2019-03-01 16:36 | Emergency (ER) | payer MEDICARE, OTHER ==
[~2019-03-01] VITALS: Ht 172.7 cm; Wt 88.5 kg
[~2019-03-01 16:36] MED LIST changes: +LEXAPRO10 MG PO
--- OUTSIDE RECORDS SUMMARY | 2019-03-01 16:40 | XMS ---
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 Security Artificial Stone Setter Events No recent Security Events currently on file CRITERIA MET - Group Notification - 6 ED Visits in 6 Months - [facility] - Has Care Guidelines - [facility] - 2 Visits in 30 Days CARE PROVIDERS Cristina Alex Evp Business Development/Cruller Maker Machine 11/29/2018-Current PHONE: [phone] VERNON ZAMORA [facility] 11/06/2018-Current PHONE: Unknown Cristina Alex Primary Care 11/29/2018-Current PHONE: [phone] Dr Zamora Primary [facility] Current PHONE: [phone] Andrew Primary Care Current JodyTajjosiane PHONE: Unknown Ivana has no Care Guidelines for this patient. Care History Medical/Surgical 01/22/2018 [facility] - Per patient PCP Dr [...] ED please contact Community Health WorkerAmy at [phone]. These are guidelines and the provider should exercise clinical judgment when providing care. E.D. VISIT COUNT (12 MO.) [address] [place] [address] TOTAL 7 NOTE: Visits indicate total known visits. ED/UCC VISIT TRACKING (12 MO.) 03/01/2019 16:37 [facility] [place] TYPE: Emergency COMPLAINT: - DIZZINESS 02/21/2019 15:04 [facility] [place] TYPE: Emergency COMPLAINT: - BS ISSUE DIAGNOSES: - Abrasion of scalp, initial encounter - Type 1 diabetes mellitus without complications - Syncope and collapse - Syncope and collapse - Abrasion of scalp, initial encounter - Dizziness and giddiness - Unspecified fall, initial encounter - Other chcf (current) drug therapy - terminal clerk (current) use of insulin - Allergy status to narcotic agent status - Allergy status to other drugs, medicaments and biological substances status - Dehydration 01/13/2019 11:36 [facility] [place] TYPE: Emergency COMPLAINT: - FALL/HEAD PAIN/LEFT SHOULDER DIAGNOSES: - Fall from bed, initial encounter - Presence of aortocoronary bypass graft - Type 1 diabetes mellitus without complications - Other allergy status, other than to drugs and biological substances - Other gear design engineer (current) drug therapy - Dizziness and giddiness - Allergy status to narcotic agent status - Fracture of one rib, left side, initial encounter for closed fracture 01/04/2019 14:49 [facility] [place] TYPE: Emergency COMPLAINT: - BLOOD SUGAR PROBLEM 11/16/2018 13:49 [facility] [place] TYPE: Emergency COMPLAINT: - DIABETIC PROBLEM DIAGNOSES: - Type 1 diabetes mellitus without complications - terminal clerk (current) use of insulin - Hyperglycemia, unspecified - Other allergy status, other than to drugs and biological substances - Allergy status to narcotic agent status 11/06/2018 02:46 [facility] [place] TYPE: Emergency COMPLAINT: - FALL,DIABETIC ISSUES DIAGNOSES: - Hypoglycemia, unspecified - Allergy status to narcotic agent status - intermediate (current) use of insulin - Other allergy status, other than to drugs and biological substances - Type 2 diabetes mellitus with hypoglycemia without coma - Adverse effect of insulin and oral hypoglycemic [antidiabetic] drugs, initial encounter - Encounter for immunization - Other chcf (current) drug therapy 10/14/2018 04:49 [facility] [place] TYPE: Emergency COMPLAINT: - ALT LOC DIAGNOSES: - Altered mental status, unspecified - Other gear design engineer (current) drug therapy - Type 2 diabetes [...] agent status - Gastro-esophageal laceration-hemorrhage syndrome - terminal clerk (current) use of antithrombotics/antiplatelets - Patient's noncompliance with other medical treatment and regimen - Atherosclerotic heart disease of [place] coronary artery without angina pectoris - Type 1 diabetes mellitus with ketoacidosis without coma - terminal clerk (current) use of antithrombotics/antiplatelets - Chronic kidney disease, stage 3 (moderate) - Patient's noncompliance with other medical treatment and regimen - Other chcf (current) drug therapy - Toxic encephalopathy - Hyperlipidemia, unspecified - Presence of aortocoronary bypass graft - Disorder of kidney and ureter, unspecified - Hyperlipidemia, unspecified - Allergy status to narcotic agent status - Breakdown (mechanical) of insulin pump, initial encounter - Atherosclerotic heart disease of [place] coronary artery without angina pectoris - Presence of aortocoronary bypass graft - Other gear design engineer (current) drug therapy - Type 1 diabetes mellitus with diabetic chronic kidney disease 10/14/2018 08:59 [facility] TYPE: General Medicine DIAGNOSES: - Hyperosmolality and [...] ketoacidosis without coma - Gastrointestinal hemorrhage, unspecified [email or web address]
--- NOTE | 2019-03-01 23:00 | EKG ---
[facility] [address] [place] [address] Signed Sinus rhythm with premature supraventricular complexes and with occasional premature ventricular complexes Otherwise normal ECG When compared with ECG of 21-FEB-2019 15:09, premature ventricular complexes are now present premature supraventricular complexes are now present Confirmed by ZOË COSBY MD ([id number]) on 03/01/2019 11:00:24 PM Electronically Signed By: ZOË COSBY MD 03/01/19 2300 PATIENT NAME: MARGARITA PERDOMO Electrocardiogram DATE OF : 50 PHYSICIAN: ZOË COSBY MD REPORT #: [id number] REPORT IS CONFIDENTIAL AND NOT TO BE RELEASED WITHOUT AUTHORIZATION
== END 2019-03-01 21:26 | disposition home or self-care (01) ==
LOC: ED 16:36
DX: R42 Dizziness and giddiness (principal); E10.649 Type 1 diabetes mellitus with hypoglycemia without coma; Z95.1 Presence of aortocoronary bypass graft; Z91.09 Other allergy status, other than to drugs and biological substances; Z88.5 Allergy status to narcotic agent; Z79.4 Long term (current) use of insulin; Z79.899 Other long term (current) drug therapy
CPT/HCPCS: 36415; 71045; 80053; 84484; 85025; 93005; 93010; 99284-25

== ENCOUNTER 2019-03-18 15:52 | Observation (INO) | payer MEDICARE, OTHER ==
[~2019-03-18] VITALS: Ht 172.7 cm; Wt 76.2 kg
--- OUTSIDE RECORDS SUMMARY | 2019-03-18 15:54 | XMS ---
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 Security Timber Deadener Events No recent Security Events currently on file CRITERIA MET - Group Notification - 6 ED Visits in 6 Months - [facility] - Has Care Guidelines - [facility] - 2 Visits in 30 Days CARE PROVIDERS Cristina Alex Grinder Tender/Poll Watcher 11/29/2018-Current PHONE: [phone] Heydi Ridley Grinder Tender/Poll Watcher 02/14/2019-Current PHONE: [phone] VERNON ZAMORA [facility] 11/06/2018-Current PHONE: Unknown Heydi Ridley Primary Care 02/14/2019-Current PHONE: [phone] Dr Zamora Primary Care Current PHONE: [phone] Andrew Primary Care Current ColtescuTajti PHONE: Unknown Ivana has no Care Guidelines for this patient. Care History Medical/Surgical 01/22/2018 [facility] - Per patient PCP Dr Zamora [...] ED please contact Community Health WorkerAmy at [phone]. These are guidelines and the provider should exercise clinical judgment when providing care. E.D. VISIT COUNT (12 MO.) 8 [facility] TOTAL 8 NOTE: Visits indicate total known visits. ED/UCC VISIT TRACKING (12 MO.) 03/18/2019 15:52 [facility] [place] TYPE: Emergency COMPLAINT: - VOMITING 03/01/2019 16:37 [facility] [place] TYPE: Emergency COMPLAINT: - DIZZINESS DIAGNOSES: - Type 1 diabetes mellitus with hypoglycemia without coma - Other fpc (current) drug therapy - Dizziness and giddiness - Presence of aortocoronary bypass graft - Other allergy status, other than to drugs and biological substances - Allergy status to narcotic agent status - manager long term care (current) use of insulin 02/21/2019 15:04 [facility] [place] TYPE: Emergency COMPLAINT: - BS ISSUE DIAGNOSES: - Abrasion of scalp, initial encounter - Type 1 diabetes mellitus without complications - Syncope and collapse - Syncope and collapse - Abrasion of scalp, initial encounter - Dizziness and giddiness - Unspecified fall, initial encounter - Other fpc (current) drug therapy - skilled nursing (current) use of insulin - Allergy status [...] to drugs and biological substances - Other termite treater helper (current) drug therapy - Dizziness and giddiness - Allergy status to narcotic agent status - Fracture of one rib, left side, initial encounter for closed fracture 01/04/2019 14:49 [facility] [place] TYPE: Emergency COMPLAINT: - BLOOD SUGAR PROBLEM 11/16/2018 13:49 [facility] [place] TYPE: Emergency COMPLAINT: - DIABETIC PROBLEM DIAGNOSES: - Type 1 diabetes mellitus without complications - skilled nursing (current) use of insulin - Hyperglycemia, unspecified - Other allergy status, other than to drugs and biological substances - Allergy status to narcotic agent status 11/06/2018 02:46 [facility] [place] TYPE: Emergency COMPLAINT: - FALL,DIABETIC ISSUES DIAGNOSES: - Hypoglycemia, unspecified - Allergy status to narcotic agent status - manager long term care (current) use of insulin - Other allergy status, other than to drugs and biological substances - Type 2 diabetes mellitus with hypoglycemia without coma - Adverse effect of insulin and oral hypoglycemic [antidiabetic] drugs, initial encounter - Encounter for immunization - Other fpc (current) drug therapy 10/14/2018 04:49 [facility] [place] TYPE: Emergency COMPLAINT: - ALT LOC DIAGNOSES: - Altered mental status, unspecified - Other termite treater helper (current) drug therapy - Type 2 diabetes [...] agent status - Gastro-esophageal laceration-hemorrhage syndrome - manager long term care (current) use of antithrombotics/antiplatelets - Patient's noncompliance with other medical treatment and regimen - Atherosclerotic heart disease of [place] coronary artery without angina pectoris - Type 1 diabetes mellitus with ketoacidosis without coma - manager long term care (current) use of antithrombotics/antiplatelets - Chronic kidney disease, stage 3 (moderate) - Patient's noncompliance with other medical treatment and regimen - Other fpc (current) drug therapy - Toxic encephalopathy - Hyperlipidemia, unspecified - Presence of aortocoronary bypass graft - Disorder of kidney and ureter, unspecified - Hyperlipidemia, unspecified - Allergy status to narcotic agent status - Breakdown (mechanical) of insulin pump, initial encounter - Atherosclerotic heart disease of [place] coronary artery without angina pectoris - Presence of aortocoronary bypass graft - Other termite treater helper (current) drug therapy - Type 1 diabetes mellitus with diabetic chronic kidney disease 10/14/2018 08:59 [facility] TYPE: General Medicine DIAGNOSES: - Hyperosmolality [...] ketoacidosis without coma - Gastrointestinal hemorrhage, unspecified [email or web address]
--- NOTE | 2019-03-18 18:50 | NUR ---
68 year OLD MALE PATIENT ADMITTED TO CCU FROM ED VIA STRETCHER UNDER DR. COSBY WITH DX OF DKA. PATIENT IS NOT ABLE TO ANSWERE QUESTIONS AT THIS TIME. ACCUCHECK-482. INSULIN GTT 8.8 UNITS/HR. IVF OF NS HUNG AT 125 ML/HR. REPORT GIVEN TO NEXT SHIFT.
--- NOTE | 2019-03-18 20:00 | NUR ---
RECEIVED REPORT AT 1930 SINCE PT JUST ARRIVE IN CCU FROM ER AT 1900. PT IS AWAKE IN BED.
--- NOTE | 2019-03-18 21:22 | NUR ---
PT NEEDS BED ALARM DUE TO BEING IMPULSIVE. PT IS ONLY ALERT TO SELF. MOST ANSWERS ARE CONFUSING. ALL LOBES ARE CLEAR, ABD SOUND PRESENT, NO PERIPHERAL EDEMA NOTED, HR WDL, URINE OUTPUT SO FAR IS ADEQUATE. WILL CONTINUE TO MONITOR.
--- NOTE | 2019-03-18 22:47 | NUR ---
PT AT THIS TIME IS SLEEPING. LAB FELIPE BLOOD AT 2200, WAITING FOR RESULTS.
--- NOTE | 2019-03-19 02:00 | NUR ---
PT IS SLEEPING AT THIS TIME. PT WAS WOKEN UP FOR 0000 ASSESSNENT. PT AT THIS TIME IS ONLY ORIENTED TO . WILL CONTINUE TO MONITOR. OTHERWISE 0000 ASSESSMENT HAS NOT SHOWN ANY OTHER CHANGES SINCE THE FIRST ASSESSMENT. WILL CONTINUE TO MONITOR NEUROLOGICAL STATUS.
--- NOTE | 2019-03-19 04:15 | NUR ---
PT WAS WOKEN UP FOR ASSESSMENT. NO CHANGES NOTED SINCE LAST ASSESSMENT. ALSO NO CHANGES IN NEUROLOGICAL STATUS FOR THIS PT. BG LEVELS HAVE DROPPED AND INSULIN DRIP IS AT 0.9 UNITS AT THIS TIME.
--- NOTE | 2019-03-19 05:18 | NUR ---
PUPILS ARE WDL IN SIZE AND REACTIVE. PT IS CONFUSED TO ALL STILL. INSULIN DRIP IS STILL RUNNING. URINE OUTPUT SO FAR IS ADEQUATE.
--- NOTE | 2019-03-19 06:29 | NUR ---
NO CHANGES TO REPORT IN THIS PT. PT IS STILL SLEEPING. V/S ARE WDL. NO NEW CONCENRS NOTED SO FAR. WAITING ON MORNING LABS.
--- NOTE | 2019-03-19 07:30 | NUR ---
REPORT RECIEVED. PATIENT ASLEEP. INSULIN GRR INFUSING AT 0.9 UNITS/HR. IVF INFUSING.
--- NOTE | 2019-03-19 08:00 | NUR ---
ORDERS RECIVED TO GIVE 20 LANTUS AND START SS INSULIN. ACCUCHECK-147, SS INSULIN 1 UNIT SQ GIVEN. BREAKFAST ORDERED, ASSESSMENT DONE. PATIENT IS CONFUSED, IS NOT ABLE TO ANSWERE QUESTIONS APPROPRIATELY. DENEIS NAUSEA.
--- NOTE | 2019-03-19 09:30 | NUR ---
TOOK 100% OF BREAKFAST (OMELET YOGART, APPLESAUSE.) IVF TO 10 ML/HR. DENIES NAUSEA.
--- NOTE | 2019-03-19 10:30 | NUR ---
AMBULATED TO ROOM 118 FROM ROOM 130 USING WALKER. SHOWER GIVEN. TOELRATED WELL.
--- NOTE | 2019-03-19 10:45 | NUR ---
AMBULATED BACK TO 130. NO SHORTNESS OF BREATH NOTED, DENEIS DIZZINESS. IS FAIRLY STABLE ON FEET. TO CHAIR.
--- NOTE | 2019-03-19 13:00 | NUR ---
REMAINS IN CHAIR. IS EATING LUNCH. CONTINUE TO BE CONFUSED WITH INAPPROP COMMENTS
--- NOTE | 2019-03-19 13:38 | NUR ---
HAVING DIFFICULTY EATING SALAD, SOUP AND COTTAGE CHEESE ORDERED.
--- NOTE | 2019-03-19 15:15 | NUR ---
BACK TO BED WITH ASSIST. DENIES PAIN OR NAUSEA.
--- NOTE | 2019-03-19 15:30 | NUR ---
REPORT TO Lupe GRIMES RN WHO IS TAKING OVER NURSING CARE. PATIENT IS ASLEEP IN BED.
--- NOTE | 2019-03-19 15:49 | NUR ---
CARE RESUMED OF PATIENT AT THIS TIME. PT RESTING, SLEEPING AT THIS TIME.HR IN THE 60-70s.
--- NOTE | 2019-03-19 17:30 | NUR ---
REPORT TO MED-SURG. PATIENT IS SITTING UP IN BE TO EAT DINNER.
--- NOTE | 2019-03-19 18:15 | NUR ---
AMBULATED TO ROOM 114 USING WALKER, ACCOMPANY BY RUBEN KWON.
--- NOTE | 2019-03-19 18:35 | NUR ---
PT RECEIVED FROM CCU. PT ON ROOM AIR. IV SALINE LOCKED. PT ORIENTED TO ROOM. PT DENIES NEEDS AT THIS TIME.
--- NOTE | 2019-03-19 19:17 | EKG ---
[facility] [address] [facility] [place] [address] Signed Normal sinus rhythm Possible Left atrial enlargement Incomplete right bundle branch block Septal infarct , age undetermined Abnormal ECG Confirmed by ZOË COSBY MD ([id number]) on 03/19/2019 7:17:45 PM Electronically Signed By: ZOË COSBY MD 03/19/191916 PATIENT NAME: MARGARITA PERDOMO Electrocardiogram DATE OF : 50 PHYSICIAN: ZOË COSBY MD REPORT #: [id number] REPORT IS CONFIDENTIAL AND NOT TO BE RELEASED WITHOUT AUTHORIZATION
--- NOTE | 2019-03-19 19:35 | NUR ---
SHIFT REPORT RECEIVED AT BEDSIDE. PATIENT IN RECLINER. DENIES NEEDS.
--- NOTE | 2019-03-19 20:45 | NUR ---
EVENING MEDS GIVEN PER ORDER. PATIENT ALERT AND ORIENTED TO ALL EXCEPT THE DETAILS LEADING UP TO HIS HOSPITALIZATION. PATIENT MAKES JOKES AND SMILES INSTEAD OF ANSWERING SOME QUESTIONS, UNABLE TO OBTAIN ALL INFORTMATION. PATIENT DENIES ACHES/PAINS. APPEARS TO HAVE A MILD TREMOR WHEN HANDS ARE OUT STRETCHED, PATIENT STATES THAT IS NORMAL FOR HIM. BLOOD GLUCOSE DONE, INSULIN PER SLIDING SCALE. FRESH WATER PROVIDED. PATIENT DENIES TOILETING NEEDS. CALL LIGHT IN REACH.
--- NOTE | 2019-03-19 22:40 | NUR ---
PATIENT APPEARS TO BE SLEEPING. SITTING UPRIGHT IN RECLINER. RR 20.
--- NOTE | 2019-03-20 00:10 | NUR ---
PATIENT SITTING UP IN RECLINER WATCHING TV. DENIES ANY NEEDS. ENCOURAGED PATIENT TO REST, WHICH HE DECLINED.
--- NOTE | 2019-03-20 01:50 | NUR ---
PATIENT PROVIDED WITH WARM BLANKET AND ASSISTED INTO BED. TV AND LIGHTS TURNED OFF PER REQUEST. PATIENT REPORTS BEING COMFORTABLE. CALL LIGHT IN REACH. BED ALARM ON.
--- NOTE | 2019-03-20 03:00 | NUR ---
PATIENT APPEARS TO BE SLEEPING. RR 20. CALL LIGHT IN REACH. BED ALARM ON.
--- NOTE | 2019-03-20 05:30 | NUR ---
LAB IN ROOM. PATIENT RESTING IN BED. DENIES ANY NEEDS.
--- NOTE | 2019-03-20 06:24 | NUR ---
PATIENT SLEPT OFF AND ON THIS SHIFT. ABLE TO ANSWER ORIENTATION QUESTIONS INTERMITTENTLY. APPEARS ALERT AND DIFFICULT TO TELL IF HE IS TRULY CONFUSED OR JOKING AROUND. PATIENT OCCATIONALLY INAPPROPRIATE IN A SEXUAL MANNOR. LUNGS ARE CLEAR. SKIN INTACT. ACCU CHECKS WITH SSI AND LANTUS. ADA DIET. 1PA W/FWW. PATIENT CALLS APPROPRIATELY. BED ALARM FOR SAFETY.
--- NOTE | 2019-03-20 07:00 | NUR ---
HANDOFF REPORT RECEIVED FROMNIGHT SHIFT RN. PT SLEEPING, LEFT UNDISTURBED.
--- NOTE | 2019-03-20 08:50 | NUR ---
PT RESTIGN IN BED. PT DIAPHARETIC, PT ASSISTED TO CHAIR TO EAT BREAKFAST. BLOOD GLUCOSE CHECKED, 64, DISCUSSED HYPOGLYCEMIA WITH DR. COSBY, ORDER TO HOLD OFF ON IV DEXTROSE SINCE PT IS EATING, ELOY REASSESS BLOOD GLUCOSE IN 15 MINUTES. PT ON ROOM AIR, LUNG SOUNDS CLEAR. BOWEL TONES ACTIVE. IV SALINE LOCKED X2. PT WIHTOUT EDEMA, CMS INTACT. PT DENIES OTHER NEEDS AT THIS TIME.
--- NOTE | 2019-03-20 09:05 | NUR ---
PT BLOD GLUCOE NOW 96, PT NO LONGER HAVING S/S OF HYPOGLYCEMIA. PT DOES NOT LIKE BRAKFAST, BREAKFAST SANDWICH ORDERED. PT DENIES OTHER NEEDS AT THIS TIME.
--- NOTE | 2019-03-20 10:59 | NUR ---
PATIENT IN CHAIR. WENT TO BATHROOM. CALL LIGHT IN REACH. NO FURTHER NEEDS AT THIS TIME. WATER REFRESHED.
--- NOTE | 2019-03-20 13:37 | NUR ---
PT WAS SITTING IN CHAIR, WATCHING TV. HE MOTIONED ME IN, FOR A MOMENT I COULDN'T TELL IF HE WAS [place], SLOW TO RESPOND OR PLAYING SOME GAME OF DECEPTION TO CHALLENGE ME. WE ENDED UP HAVING A GOOD VISIT-HE IS EXCITED TO BE DC'D AND SLEEP IN THE NEW BED HE SAID THE STATE PROVIDED FOR HIM. I EXTENDED A BLESSING, HE SHOOK MY HAND. I WILL FOLLOW NEEDED
== END 2019-03-20 12:40 | disposition home or self-care (01) ==
LOC: ED 15:52 → CCU 15:53 → MS 03-19 18:20
PROVIDERS: ADMIT Internal Medicine
DX: E10.10 Type 1 diabetes mellitus with ketoacidosis without coma (principal); G93.41 Metabolic encephalopathy; E10.22 Type 1 diabetes mellitus with diabetic chronic kidney disease; N18.3 Chronic kidney disease, stage 3 (moderate); E78.5 Hyperlipidemia, unspecified; I25.10 Atherosclerotic heart disease of native coronary artery without angina pectoris; Z95.1 Presence of aortocoronary bypass graft; Z88.5 Allergy status to narcotic agent; Z79.02 Long term (current) use of antithrombotics/antiplatelets; Z79.4 Long term (current) use of insulin; Z79.891 Long term (current) use of opiate analgesic; Z79.899 Other long term (current) drug therapy
CPT/HCPCS: 36415; 36600; 70450; 80048; 80053; 81001; 82010; 82803; 83735; 84100; 84484; 85025; 93005; 93010; 96361; 96374; 96375; 99291; G0378; J1815; J2405; J7030; J7040; J7042

== ENCOUNTER 2019-04-18 09:33 | Emergency (ER) | payer MEDICARE, OTHER ==
[~2019-04-18] VITALS: Ht 172.7 cm; Wt 79.5 kg
--- OUTSIDE RECORDS SUMMARY | 2019-04-18 09:36 | XMS ---
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 Security Dividend Deposit Entry Clerk Events No recent Security Events currently on file CRITERIA MET - Group Notification - 6 ED Visits in 6 Months - [facility] - Has Care Guidelines - [facility] - 2 Visits in 30 Days CARE PROVIDERS Cristina Alex Fast Food Supervisor/Barrel Ribs Solderer 11/29/2018-Current PHONE: [phone] Heydi Ridley Fast Food Supervisor/Barrel Ribs Solderer 02/14/2019-Current PHONE: [phone] VERNON ZAMORA Internal Medicine 11/06/2018-Current PHONE: Unknown Heydi Ridley Primary Care 02/14/2019-Current PHONE: [phone] Dr Zamora Primary Care Current PHONE: [phone] Andrew Primary Care Current ColtescuTajti PHONE: Unknown Ivana has no Care Guidelines for this patient. Care History Medical/Surgical 04/04/2019 [facility] - PATIENT NEXT PCP WITH DR ZAMORA ON 06/11/19. - PATIENT CURRENTLY RECEIVES CARE GIVING SERVICES FROM [facility]- THRU [facility] - W DISCUSSED THE NEED FOR MEDICATION MANAGEMENT WITH PATIENT - HELPING [facility] DIRECTOR STATED THEY WILL BE TAKING OVER PATIENT MEDICATION MANAGEMENT STARTING THE WEEK OF 04/06/19. - PATIENT WILL BE DOCUMENTING BLOOD SUGAR LEVELS AND CARE GIVERS WILL BE WORKING WITH PATIENT ON DIABETES MANAGEMENT (MEAL PREPS, AND MEDICATION MANAGEMENT) - IF ANY QUESTIONS IN REGARDS TO MEDICATIONS AND OR CARE GIVING INFORMATION PLEASE CONTACT MANDA AT [facility]- [phone]. 01/22/2018 [facility] - Per patient [...] ED please contact Community Health WorkerAmy at [phone]. These are guidelines and the provider should exercise clinical judgment when providing care. [facility] VISIT COUNT (12 MO.) 11 ME[facility] [place] TOTAL 11 NOTE: Visits indicate total known visits. 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 - Other termite treater (current) drug therapy - Adverse effect of insulin and oral hypoglycemic [antidiabetic] drugs, initial encounter 03/18/2019 15:52 [facility] [place] TYPE: Emergency COMPLAINT: - VOMITING 03/01/2019 16:37 [facility] [place] TYPE: Emergency COMPLAINT: - DIZZINESS DIAGNOSES: - Type 1 diabetes mellitus with hypoglycemia without coma - Other half-way (current) drug therapy - Dizziness and giddiness - Presence of aortocoronary bypass graft - Other allergy status, other than to drugs and biological substances - Allergy status to narcotic agent status - tank terminal gauger (current) use of insulin 02/21/2019 15:04 [facility] [place] TYPE: Emergency COMPLAINT: - BS ISSUE DIAGNOSES: - Abrasion of scalp, initial encounter - Type 1 diabetes mellitus without complications - Syncope and collapse - Syncope and collapse - Abrasion of scalp, initial encounter - Dizziness and giddiness - Unspecified fall, initial encounter - Other termite treater (current) drug therapy - tank terminal gauger (current) use of insulin - Allergy status [...] and biological substances - Other termite treater (current) drug therapy - Dizziness and giddiness - Allergy status to narcotic agent status - Fracture of one rib, left side, initial encounter for closed fracture 01/04/2019 14:49 [facility] [place] TYPE: Emergency COMPLAINT: - BLOOD SUGAR PROBLEM 11/16/2018 13:49 [facility] [place] TYPE: Emergency COMPLAINT: - DIABETIC PROBLEM DIAGNOSES: - Type 1 diabetes mellitus without complications - MCC (current) use of insulin - Hyperglycemia, unspecified - Other allergy status, other than to drugs and biological substances - Allergy status to narcotic agent status 11/06/2018 02:46 [facility] [place] TYPE: Emergency COMPLAINT: - FALL,DIABETIC ISSUES DIAGNOSES: - Hypoglycemia, unspecified - Allergy status to narcotic agent status - tank terminal gauger (current) use of insulin - Other allergy status, other than to drugs and biological substances - Type 2 diabetes mellitus with hypoglycemia without coma - Adverse effect of insulin and oral hypoglycemic [antidiabetic] drugs, initial encounter - Encounter for immunization - Other termite treater (current) drug therapy 10/14/2018 04:49 [facility] [place] TYPE: Emergency COMPLAINT: - ALT LOC DIAGNOSES: - Altered mental status, unspecified - Other termite treater (current) drug therapy - Type 2 diabetes mellitus with ketoacidosis without coma INPATIENT VISIT TRACKING (12 MO.) 03/31/2019 10:17 [facility] [place] TYPE: Observation COMPLAINT: - DKA DIAGNOSES: - Nausea with vomiting, unspecified - Chronic pain syndrome - Presence of aortocoronary bypass graft - Type 1 diabetes mellitus with diabetic chronic kidney disease - Type 1 diabetes mellitus with ketoacidosis without coma - Hyperlipidemia, unspecified - Metabolic encephalopathy - Atherosclerotic heart disease of [place] coronary artery without angina pectoris - Chronic kidney disease, stage 3 (moderate) - MCC (current) use of antithrombotics/antiplatelets - Gastro-esophageal reflux disease without esophagitis - Patient's other noncompliance with medication regimen - Other termite treater (current) drug therapy - MCC (current) use of insulin - Allergy status to narcotic agent status - Major depressive disorder, single episode, unspecified 03/18/2019 15:53 [facility] [place] TYPE: Observation COMPLAINT: - DKA DIAGNOSES: - Hyperlipidemia, unspecified - Other termite treater (current) drug therapy - MCC (current) use of insulin - Metabolic encephalopathy - Atherosclerotic heart disease of [place] coronary artery without angina pectoris - Type 1 diabetes mellitus with diabetic chronic kidney disease - Chronic kidney disease, stage 3 (moderate) - Presence of aortocoronary bypass graft - Nausea with vomiting, unspecified - Type 1 diabetes mellitus with ketoacidosis without coma - Allergy status to narcotic agent status - tank terminal gauger (current) use of antithrombotics/antiplatelets - tank terminal gauger (current) use of opiate analgesic 01/04/2019 17:[address] [facility] [place] [...] agent status - Gastro-esophageal laceration-hemorrhage syndrome - MCC (current) use of antithrombotics/antiplatelets - Patient's noncompliance with other medical treatment and regimen - Atherosclerotic heart disease of [place] coronary artery without angina pectoris - Type 1 diabetes mellitus with ketoacidosis without coma - MCC (current) use of antithrombotics/antiplatelets - Chronic kidney disease, stage 3 (moderate) - Patient's noncompliance with other medical treatment and regimen - Other half-way (current) drug therapy - Toxic encephalopathy - Hyperlipidemia, unspecified - Presence of aortocoronary bypass graft - Disorder of kidney and ureter, unspecified - Hyperlipidemia, unspecified - Allergy status to narcotic agent status - Breakdown (mechanical) of insulin pump, initial encounter - Atherosclerotic heart disease of [place] coronary artery without angina pectoris - Presence of aortocoronary bypass graft - Other termite treater (current) drug therapy - Type 1 diabetes mellitus with diabetic chronic kidney disease 10/14/2018 08:59 [facility] TYPE: General Medicine DIAGNOSES: - [...] ketoacidosis without coma - Gastrointestinal hemorrhage, unspecified [id number]
[2019-04-18] MEDS ORDERED: NOVOLOG100 UNIT/2 IV (09:41)
--- NOTE | 2019-04-18 12:37 | EKG ---
[facility] [address] [place], [place] [address] Signed Normal sinus rhythm Normal ECG When compared with ECG of 31-MAR-2019 10:41, No significant change was found Confirmed by ZOË COSBY MD ([id number]) on 04/18/2019 12:37:00 PM Electronically Signed By: ZOË COSBY MD 04/18/19 1237 PATIENT NAME: MARGARITA PERDOMO JOSE Electrocardiogram DATE OF : 50 PHYSICIAN: ZOË COSBY MD REPORT #: [id number] REPORT IS CONFIDENTIAL AND NOT TO BE RELEASED WITHOUT AUTHORIZATION
== END 2019-04-18 11:20 | disposition home or self-care (01) ==
LOC: ED 09:33
DX: R41.82 Altered mental status, unspecified (principal); E10.649 Type 1 diabetes mellitus with hypoglycemia without coma; Z95.1 Presence of aortocoronary bypass graft; Z87.891 Personal history of nicotine dependence; Z88.5 Allergy status to narcotic agent; Z91.048 Other nonmedicinal substance allergy status; Z79.899 Other long term (current) drug therapy
CPT/HCPCS: 70450; 71045; 80053; 84484; 85025; 93005; 93010; 96360; 99284-25; G0480; J7040

== ENCOUNTER 2019-07-02 08:55 | Inpatient (IN) | payer MEDICARE, OTHER ==
[~2019-07-02] VITALS: Ht 172.7 cm; Wt 76.0 kg
[~2019-07-02 08:55] MED LIST changes: +NOVOLOG100 UNIT/2 IV
--- OUTSIDE RECORDS SUMMARY | 2019-07-02 08:58 | XMS ---
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 Security Print Manager Events No recent Security Events currently on file CRITERIA MET - Group Notification - 6 ED Visits in 6 Months - [facility] [place]ARE PROVIDERS Heydi Ridley Bench Molder/Charter Driver 02/14/2019-Current PHONE: [phone] VERNON LESTER Internal Medicine 11/06/2018-Current PHONE: Unknown Heydi Ridley Primary Care 02/14/2019-Current PHONE: [phone] Dr Lester Primary Care Current PHONE: [phone] Andrew Primary Care Current Radha PHONE: Unknown Ivana has no Care Guidelines for this patient. Care History Medical/Surgical 05/23/2019 [facility] - [facility]- DIRECTOR- UPDATED CARE PLAN - PATIENT WILL BE HAVING KNITTING TEACHER HOURS 2 1/2 HOURS IN THE AM AND 2 1/2 HOURS IN THE EVENING 7 DAYS A WEEK TO HELP PATIENT WITH MEDICATION AND MEAL PREPARATION. - IF PATIENT DOES NOT COMPLY WITH THE KNITTING TEACHER HOURS -THEY WILL HAVE PULL OUT SERVICES/CARE FOR PATIENT. 04/04/2019 [facility] - PATIENT NEXT PCP WITH DR LESTER ON 06/11/19. - PATIENT CURRENTLY RECEIVES CARE GIVING SERVICES FROM [facility]- THRU [facility]. - CHW DISCUSSED THE NEED FOR MEDICATION MANAGEMENT WITH PATIENT - [facility] [place] DIRECTOR STATED THEY WILL BE TAKING OVER PATIENT MEDICATION MANAGEMENT STARTING THE WEEK OF 04/06/19. - PATIENT WILL BE DOCUMENTING BLOOD SUGAR LEVELS AND CARE GIVERS WILL BE WORKING WITH PATIENT ON DIABETES MANAGEMENT (MEAL PREPS, AND MEDICATION MANAGEMENT) - IF ANY QUESTIONS IN REGARDS TO MEDICATIONS AND OR CARE GIVING INFORMATION PLEASE CONTACT MANDA [facility]- [phone]. 01/22/2018 [facility] - Per patient PCP Dr Lester "Patient [...] returns to ED please contact Community Health WorkermAy at [phone]. These are guidelines and the provider should exercise clinical judgment when providing care. [facility] VISIT COUNT (12 MO.) 15 MEGHANN Curry TOTAL 15 NOTE: Visits indicate total known visits. ED/UCC VISIT TRACKING (12 MO.) 07/02/2019 08:56 [facility] [place] TYPE: Emergency COMPLAINT: - VOMITING 05/31/2019 09:59 [facility] [place] TYPE: Emergency COMPLAINT: - DIABETIC ISSUE DIAGNOSES: - Presence of aortocoronary bypass graft - Type 1 diabetes mellitus with hyperglycemia - Type 2 diabetes mellitus with hyperglycemia - Cannabis abuse with intoxication, unspecified - Latex allergy status - Other adjunct faculty for medical terminology (current) drug therapy - Cervicalgia - Personal history of nicotine dependence - Other nonmedicinal substance allergy status 05/22/2019 11:52 [facility] [place] TYPE: Emergency COMPLAINT: - DIABETIC ISSUE DIAGNOSES: - Other nonmedicinal substance allergy status - Hypoglycemia, unspecified - Presence of aortocoronary bypass graft - Allergy status to narcotic agent status - Type 1 diabetes mellitus with hypoglycemia without coma - Personal history of nicotine dependence - Other adjunct faculty for medical terminology (current) drug therapy 05/17/2019 10:09 [facility] [place] TYPE: Emergency COMPLAINT: - HIGH BLOOD SUGAR 04/18/2019 09:33 [facility] [place] TYPE: Emergency COMPLAINT: - FALL DIAGNOSES: - Disorientation, unspecified - Allergy status to narcotic agent status - Other adjunct faculty for medical terminology (current) drug therapy - Type 1 diabetes mellitus with hypoglycemia without coma - Other nonmedicinal substance allergy status - Personal history of nicotine dependence - Presence of aortocoronary bypass graft - Altered mental status, unspecified 03/31/2019 10:16 [facility] [place] TYPE: Emergency COMPLAINT: - WEAKNESS/NAUSEA/VOMITING 03/23/2019 17:19 [facility] [place] TYPE: Emergency COMPLAINT: - DIABETIC ISSUE DIAGNOSES: - Allergy status to other drugs, medicaments and biological substances status - Presence of aortocoronary bypass graft - Hypoglycemia, unspecified - Other nonmedicinal substance allergy status - 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 - Other adjunct faculty for medical terminology (current) drug therapy - Adverse effect of insulin and oral hypoglycemic [antidiabetic] drugs, initial encounter 03/18/2019 15:52 [facility] [place] TYPE: Emergency COMPLAINT: - VOMITING 03/01/2019 16:37 [facility] [place] TYPE: Emergency COMPLAINT: - DIZZINESS DIAGNOSES: - Type 1 diabetes mellitus with hypoglycemia without coma - Other [place] [facility] (current) drug therapy - Dizziness and giddiness - Presence of aortocoronary bypass graft - Other allergy status, other than to drugs and biological substances - Allergy status to narcotic agent status - prison (current) use of insulin 02/21/2019 15:04 [facility] [place] TYPE: Emergency COMPLAINT: - BS ISSUE DIAGNOSES: - Abrasion of scalp, initial encounter - Type 1 diabetes mellitus without complications - Syncope and collapse - Syncope and collapse - Abrasion of scalp, initial encounter - Dizziness and giddiness - Unspecified fall, initial encounter - Other [place] [facility] (current) drug therapy - remote computer terminal operator (current) use of insulin - Allergy status [...] to drugs and biological substances - Other adjunct faculty for medical terminology (current) drug therapy - Dizziness and giddiness - Allergy status to narcotic agent status - Fracture of one rib, left side, initial encounter for closed fracture 01/04/2019 14:49 [facility] [place] TYPE: Emergency COMPLAINT: - BLOOD SUGAR PROBLEM 11/16/2018 13:49 [facility] [place] TYPE: Emergency COMPLAINT: - DIABETIC PROBLEM DIAGNOSES: - Type 1 diabetes mellitus without complications - remote computer terminal operator (current) use of insulin - Hyperglycemia, unspecified - Other allergy status, other than to drugs and biological substances - Allergy status to narcotic agent status 11/06/2018 02:46 [facility] [place] TYPE: Emergency COMPLAINT: - FALL,DIABETIC ISSUES DIAGNOSES: - Hypoglycemia, unspecified - Allergy status to narcotic agent status - prison (current) use of insulin - Other allergy status, other than to drugs and biological substances - Type 2 diabetes mellitus with hypoglycemia without coma - Adverse effect of insulin and oral hypoglycemic [antidiabetic] drugs, initial encounter - Encounter for immunization - Other adjunct faculty for medical terminology (current) drug therapy 10/14/2018 04:49 [facility] [place] TYPE: Emergency COMPLAINT: - ALT LOC DIAGNOSES: - Altered mental status, unspecified - Other [place] [facility] (current) drug therapy - Type 2 diabetes mellitus with ketoacidosis without coma INPATIENT VISIT TRACKING (12 MO.) 05/17/2019 13:46 [facility] [place] TYPE: Observation COMPLAINT: - DKA DIAGNOSES: - Metabolic encephalopathy - Chronic pain syndrome - Type 1 diabetes mellitus with ketoacidosis without coma - remote computer terminal operator (current) use of antithrombotics/antiplatelets - Atherosclerotic heart disease of [place] coronary artery without angina pectoris - Patient's noncompliance with other medical treatment and regimen - Allergy status to narcotic agent status - Chronic kidney disease, stage 3 (moderate) - Presence of aortocoronary bypass graft - Hyperlipidemia, unspecified - Type 1 diabetes mellitus with diabetic chronic kidney disease - Gastro-esophageal reflux disease without esophagitis - Other [place] [facility] (current) drug therapy - Unspecified mood [affective] disorder - prison (current) use of insulin 03/31/2019 10:17 [facility] [place] TYPE: Observation COMPLAINT: - DKA DIAGNOSES: - Nausea with vomiting, unspecified - Chronic pain syndrome - Presence of aortocoronary bypass graft - Type 1 diabetes mellitus with diabetic chronic kidney disease - Type 1 diabetes mellitus with ketoacidosis without coma - Hyperlipidemia, unspecified - Metabolic encephalopathy - Atherosclerotic heart disease of [place] coronary artery without angina pectoris - Chronic kidney disease, stage 3 (moderate) - remote computer terminal operator (current) use of antithrombotics/antiplatelets - Gastro-esophageal reflux disease without esophagitis - Patient's other noncompliance with medication regimen - Other adjunct faculty for medical terminology (current) drug therapy - prison (current) use of insulin - Allergy status to narcotic agent status - Major depressive disorder, single episode, unspecified 03/18/2019 15:53 [facility] [place] TYPE: Observation COMPLAINT: - DKA DIAGNOSES: - Hyperlipidemia, unspecified - Other [place] [facility] (current) drug therapy - remote computer terminal operator (current) use of insulin - Metabolic encephalopathy - Atherosclerotic heart disease of [place] coronary artery without angina pectoris - Type 1 diabetes mellitus with diabetic chronic kidney disease - Chronic kidney disease, stage 3 (moderate) - Presence of aortocoronary bypass graft - Nausea with vomiting, unspecified - Type 1 diabetes mellitus with ketoacidosis without coma - Allergy status to narcotic agent status - prison (current) use of antithrombotics/antiplatelets - prison (current) use of opiate analgesic 01/04/2019 17:46 [facility] [place] TYPE: Medical Surgical COMPLAINT: - DKA DIAGNOSES: - Breakdown (mechanical) of insulin pump, initial encounter - Toxic encephalopathy - Type 1 diabetes mellitus with diabetic chronic kidney disease - Gastro-esophageal laceration-hemorrhage syndrome - Chronic kidney disease, stage 3 (moderate) - Disorder of kidney and ureter, unspecified - Allergy status to narcotic agent status - Gastro-esophageal laceration-hemorrhage syndrome - remote computer terminal operator (current) use of antithrombotics/antiplatelets - Patient's noncompliance with other medical treatment and regimen - Atherosclerotic heart disease of [place] coronary artery without angina pectoris - Type 1 diabetes mellitus with ketoacidosis without coma - remote computer terminal operator (current) use of antithrombotics/antiplatelets - Chronic kidney disease, stage 3 (moderate) - Patient's noncompliance with other medical treatment and regimen - Other [place] [facility] (current) drug therapy - Toxic encephalopathy - Hyperlipidemia, unspecified - Presence of aortocoronary bypass graft - Disorder of kidney and ureter, unspecified - Hyperlipidemia, unspecified - Allergy status to narcotic agent status - Breakdown (mechanical) of insulin pump, initial encounter - Atherosclerotic heart disease of [place] coronary artery without angina pectoris - Presence of aortocoronary bypass graft - Other [place] [facility] (current) drug therapy - Type 1 diabetes mellitus with diabetic chronic kidney disease 10/14/2018 08:59 [facility] DIAGNOSES: - Hyperosmolality [...] ketoacidosis without coma - Gastrointestinal hemorrhage, unspecified [id number]
[2019-07-03] MEDS ORDERED: NOVOLOG FL100 UNIT/1 SUB-Q (08:58)
[2019-07-05] MEDS ORDERED: NOVOLOG FL100 UNIT/1 SUB-Q (11:03)
[2019-07-05] MEDS ORDERED: LEVEMIR100 UNIT/1 SUB-Q (11:09)
[2019-07-05] MEDS ORDERED: INSULIN PEN NE1 EACH MISC (11:09)
[2019-07-05] MEDS ORDERED: INSULIN SYRING1 EA11 MISC (11:48)
== END 2019-07-05 13:00 | disposition home health service (06) | DRG 637 ==
LOC: ED 08:55 → CCU 08:57 → MS 08:57
PROVIDERS: ADMIT Internal Medicine
DX: E10.10 Type 1 diabetes mellitus with ketoacidosis without coma (principal); G93.41 Metabolic encephalopathy; N17.9 Acute kidney failure, unspecified; I25.10 Atherosclerotic heart disease of native coronary artery without angina pectoris; E10.22 Type 1 diabetes mellitus with diabetic chronic kidney disease; N18.3 Chronic kidney disease, stage 3 (moderate); K21.9 Gastro-esophageal reflux disease without esophagitis; E78.5 Hyperlipidemia, unspecified; F39 Unspecified mood [affective] disorder; G89.4 Chronic pain syndrome; Z91.14 Patient's other noncompliance with medication regimen; Z95.1 Presence of aortocoronary bypass graft; Z88.5 Allergy status to narcotic agent; Z79.02 Long term (current) use of antithrombotics/antiplatelets; Z79.4 Long term (current) use of insulin; Z79.899 Other long term (current) drug therapy
CPT/HCPCS: 36415; 71045; 80048; 80053; 81001; 82010; 82800; 83036; 85025; 90662; 96361; 96374; 96375; 99285-25; C9113; J1650; J1815; J2405; J2765; J3480; J7030; J7120

== ENCOUNTER → 2019-08-03 | Emergency (ER) | payer MEDICARE, OTHER ==
[~2019-08-03] VITALS: Ht 172.7 cm; Wt 77.0 kg
[~2019-08-03] MED LIST changes: +ASPIRIN81 MG PO; +HUMALOG100 UNITS/ SUB-Q; +INSULIN PEN NE1 EACH MISC; +INSULIN SYRING1 EA11 MISC; +INSULIN SYRING1 EA16 MISC; +KEPPRA500 MG PO; +NOVOLOG FL100 UNIT/1 SUB-Q
--- OUTSIDE RECORDS SUMMARY | 2019-08-03 09:00 | XMS ---
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 Care History Medical/Surgical 07/18/2019 [facility] - ED CASE MANAGEMENT CONSULT RECEIVED- CHW PROVIDED TO BHAVANA- W OF CLINIC FOR HIGH RISK FOLLOW UP. 05/23/2019 [facility] - [facility]- DIRECTOR- UPDATED CARE PLAN - PATIENT WILL BE HAVING VEHICLE AND EQUIPMENT CLEANER HOURS 2 1/2 HOURS IN THE AM AND 2 1/2 HOURS IN THE EVENING 7 DAYS A WEEK TO HELP PATIENT WITH MEDICATION AND MEAL PREPARATION. - IF PATIENT DOES NOT COMPLY WITH THE VEHICLE AND EQUIPMENT CLEANER HOURS -THEY WILL HAVE PULL OUT SERVICES/CARE FOR PATIENT. 04/04/2019 [facility] - PATIENT NEXT PCP WITH DR ZAMORA ON 06/11/19. - PATIENT CURRENTLY RECEIVES CARE GIVING SERVICES FROM [facility]- THRU [employer] [facility]. - CHW DISCUSSED THE NEED FOR MEDICATION MANAGEMENT WITH PATIENT - [facility] [facility] DIRECTOR STATED THEY WILL BE TAKING OVER PATIENT MEDICATION MANAGEMENT STARTING THE WEEK OF 04/06/19. - PATIENT WILL BE DOCUMENTING BLOOD SUGAR LEVELS AND CARE GIVERS WILL BE WORKING WITH PATIENT ON DIABETES MANAGEMENT (MEAL PREPS, AND MEDICATION MANAGEMENT) - IF ANY QUESTIONS IN REGARDS TO MEDICATIONS AND OR CARE GIVING INFORMATION PLEASE CONTACT MANDA HOOD [employer] [facility]- [phone]. E.D. VISIT COUNT (12 MO.) 17 MEGHANN Curry TOTAL 17 NOTE: Visits indicate total known visits. ED/UCC VISIT TRACKING (12 MO.) 08/03/2019 08:57 [place] TYPE: Emergency COMPLAINT: - DIABETIC ISSUE 07/17/2019 08:44 [place] TYPE: Emergency COMPLAINT: - BLOOD SUGAR PROBLEM 07/02/2019 08:56 [place] [place] TYPE: Emergency COMPLAINT: - VOMITING 05/31/2019 09:59 [facility] [place] TYPE: Emergency COMPLAINT: - DIABETIC ISSUE DIAGNOSES: - Presence of aortocoronary bypass graft - 1 Type 1 diabetes mellitus with hyperglycemia - 1 Type 2 diabetes mellitus with hyperglycemia - Cannabis abuse with intoxication, unspecified - Latex allergy status - Other mcc (current) drug therapy - Cervicalgia - Personal history of nicotine dependence - Other nonmedicinal substance allergy status 05/22/2019 11:52 [place] [place] TYPE: Emergency COMPLAINT: - DIABETIC ISSUE DIAGNOSES: - Other nonmedicinal substance allergy status - Hypoglycemia, unspecified - Presence of aortocoronary bypass graft - Allergy status to narcotic agent status - 1 Type 1 diabetes mellitus with hypoglycemia without coma - Personal history of nicotine dependence - Other mcc (current) drug therapy 05/17/2019 10:09 [place] [place] TYPE: Emergency COMPLAINT: - HIGH BLOOD SUGAR 04/18/2019 09:33 [place] [place] TYPE: Emergency COMPLAINT: - FALL DIAGNOSES: - Disorientation, unspecified - Allergy status to narcotic agent status - Other mcc (current) drug therapy - 1 Type 1 diabetes mellitus with hypoglycemia without coma - Other nonmedicinal substance allergy status - Personal history of nicotine dependence - Presence of aortocoronary bypass graft - Altered mental status, unspecified 03/31/2019 10:16 [place] TYPE: Emergency COMPLAINT: - WEAKNESS/NAUSEA/VOMITING 03/23/2019 17:19 [place] [place] TYPE: Emergency COMPLAINT: - DIABETIC ISSUE DIAGNOSES: - Allergy status to oth drug/meds/biol subst status - Presence of aortocoronary bypass graft - Hypoglycemia, unspecified - Other nonmedicinal substance allergy status - Drug/chem diabetes mellitus w hypoglycemia w/o coma - Other mcc (current) drug therapy - Adverse effect of insulin and oral hypoglycemic drugs, init 03/18/2019 15:52 [place] TYPE: Emergency COMPLAINT: - VOMITING 03/01/2019 16:37 [place] TYPE: Emergency COMPLAINT: - DIZZINESS DIAGNOSES: - 1 Type 1 diabetes mellitus with hypoglycemia without coma - Other mcc (current) drug therapy - Dizziness and giddiness - Presence of aortocoronary bypass graft - Oth allergy status, oth than to drugs and biolg substances - Allergy status to narcotic agent status - long-term (current) use of insulin 02/21/2019 15:04 [place] TYPE: Emergency COMPLAINT: - BS ISSUE DIAGNOSES: - Abrasion of scalp, initial encounter - 1 Type 1 diabetes mellitus without complications - Syncope and collapse - Syncope and collapse - Abrasion of scalp, initial encounter - Dizziness and giddiness - Unspecified fall, initial encounter - Other mcc (current) drug therapy - long-term (current) use of insulin - Allergy status to narcotic agent status - Allergy status to oth drug/meds/biol subst status - Dehydration 01/13/2019 11:36 [place] TYPE: Emergency COMPLAINT: - FALL/HEAD PAIN/LEFT SHOULDER DIAGNOSES: - Fall from bed, initial encounter - Presence of aortocoronary bypass graft - 1 Type 1 diabetes mellitus without complications - Oth allergy status, oth than to drugs and biolg substances - Other buttermaker continuous churn (current) drug therapy - Dizziness and giddiness - Allergy status to narcotic agent status - Fracture of one rib, left side, init for clos fx 01/04/2019 14:49 [place] TYPE: Emergency COMPLAINT: - BLOOD SUGAR PROBLEM 11/16/2018 13:49 [place] [place] TYPE: Emergency COMPLAINT: - DIABETIC PROBLEM DIAGNOSES: - 1 Type 1 diabetes mellitus without complications - long-term (current) use of insulin - Hyperglycemia, unspecified - Oth allergy status, oth than to drugs and biolg substances - Allergy status to narcotic agent status 11/06/2018 02:46 [place] TYPE: Emergency COMPLAINT: - FALL,DIABETIC ISSUES DIAGNOSES: - Hypoglycemia, unspecified - Allergy status to narcotic agent status - termite treater (current) use of insulin - Oth allergy status, oth than to drugs and biolg substances - 1 Type 2 diabetes mellitus with hypoglycemia without coma - Adverse effect of insulin and oral hypoglycemic drugs, init - Encounter for immunization - Other mcc (current) drug therapy 10/14/2018 04:49 [place] TYPE: Emergency COMPLAINT: - ALT LOC DIAGNOSES: - Altered mental status, unspecified - Other buttermaker continuous churn (current) drug therapy - 1 Type 2 diabetes mellitus with ketoacidosis without coma INPATIENT VISIT TRACKING (12 MO.) 07/17/2019 08:45 [place] TYPE: Observation COMPLAINT: - DKA DIAGNOSES: - Gastro-esophageal reflux disease without esophagitis - Acute kidney failure, unspecified - 1 Type 1 diabetes mellitus with ketoacidosis without coma - Other mcc (current) drug therapy - Patient's noncompliance w oth medical treatment and regimen - Allergy status to narcotic agent status - long-term (current) use of insulin - 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 - 1 Chronic kidney disease, stage 3 (moderate) - Presence of aortocoronary bypass graft - Hyperglycemia, unspecified - Hyperlipidemia, unspecified - long-term (current) use of antithrombotics/antiplatelets - Athscl heart disease of [place] coronary artery w/o ang pctrs - Chronic pain syndrome 07/02/2019 15:16 [place] TYPE: Medical Surgical COMPLAINT: - DKA DIAGNOSES: - 1 Type 1 diabetes mellitus with ketoacidosis without coma - Metabolic encephalopathy - 1 Chronic kidney disease, stage 3 (moderate) - 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 - Chronic pain syndrome - long-term (current) use of antithrombotics/antiplatelets - Hyperlipidemia, unspecified - Gastro-esophageal reflux disease without esophagitis - termite treater (current) use of insulin - Presence of aortocoronary bypass graft - Acute kidney failure, unspecified - Unspecified mood [affective] disorder - Encounter for immunization - Athscl heart disease of [place] coronary artery w/o ang pctrs - Other buttermaker continuous churn (current) drug therapy - Allergy status to narcotic agent status - Patient's other noncompliance with medication regimen 05/17/2019 13:46 [place] [place] TYPE: Observation COMPLAINT: - DKA DIAGNOSES: - Metabolic encephalopathy - Chronic pain syndrome - 1 Type 1 diabetes mellitus with ketoacidosis without coma - termite treater (current) use of antithrombotics/antiplatelets - Athscl heart disease of [place] coronary artery w/o ang pctrs - Patient's noncompliance w oth medical treatment and regimen - Allergy status to narcotic agent status - 1 Chronic kidney disease, stage 3 (moderate) - Presence of aortocoronary bypass graft - Hyperlipidemia, unspecified - 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 - Gastro-esophageal reflux disease without esophagitis - Other mcc (current) drug therapy - Unspecified mood [affective] disorder - termite treater (current) use of insulin 03/31/2019 10:17 [place] [place] TYPE: Observation COMPLAINT: - DKA DIAGNOSES: - Nausea with vomiting, unspecified - Chronic pain syndrome - Presence of aortocoronary bypass graft - 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 - 1 Type 1 diabetes mellitus with ketoacidosis without coma - Hyperlipidemia, unspecified - Metabolic encephalopathy - Athscl heart disease of [place] coronary artery w/o ang pctrs - 1 Chronic kidney disease, stage 3 (moderate) - termite treater (current) use of antithrombotics/antiplatelets - Gastro-esophageal reflux disease without esophagitis - Patient's other noncompliance with medication regimen - Other mcc (current) drug therapy - termite treater (current) use of insulin - Allergy status to narcotic agent status - Major depressive disorder, single episode, unspecified 03/18/2019 15:53 [place] TYPE: Observation COMPLAINT: - DKA DIAGNOSES: - Hyperlipidemia, unspecified - Other mcc (current) drug therapy - long-term (current) use of insulin - Metabolic encephalopathy - Athscl heart disease of [place] coronary artery w/o ang pctrs - 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 - 1 Chronic kidney disease, stage 3 (moderate) - Presence of aortocoronary bypass graft - Nausea with vomiting, unspecified - 1 Type 1 diabetes mellitus with ketoacidosis without coma - Allergy status to narcotic agent status - termite treater (current) use of antithrombotics/antiplatelets - long-term (current) use of opiate analgesic 01/04/2019 17:46 [place] TYPE: Medical Surgical COMPLAINT: - DKA DIAGNOSES: - Breakdown (mechanical) of insulin pump, initial encounter - Toxic encephalopathy - 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 - Gastro-esophageal laceration-hemorrhage syndrome - 1 Chronic kidney disease, stage 3 (moderate) - Disorder of kidney and ureter, unspecified - Allergy status to narcotic agent status - Gastro-esophageal laceration-hemorrhage syndrome - termite treater (current) use of antithrombotics/antiplatelets - Patient's noncompliance w oth medical treatment and regimen - Athscl heart disease of [place] coronary artery w/o ang pctrs - 1 Type 1 diabetes mellitus with ketoacidosis without coma - long-term (current) use of antithrombotics/antiplatelets - 1 Chronic kidney disease, stage 3 (moderate) - Patient's noncompliance w oth medical treatment and regimen - Other buttermaker continuous churn (current) drug therapy - Toxic encephalopathy - Hyperlipidemia, unspecified - Presence of aortocoronary bypass graft - Disorder of kidney and ureter, unspecified - Hyperlipidemia, unspecified - Allergy status to narcotic agent status - Breakdown (mechanical) of insulin pump, initial encounter - Athscl heart disease of [place] coronary artery w/o ang pctrs - Presence of aortocoronary bypass graft - Other buttermaker continuous churn (current) drug therapy - 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 10/14/2018 08:59 [facility] TYPE: General Medicine DIAGNOSES: - Hyperosmolality and hypernatremia - Acute kidney failure with tubular necrosis - Non-ST elevation (NSTEMI) myocardial infarction - Anemia in other chronic diseases classified elsewhere - Acute kidney failure, unspecified - 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
--- NOTE | 2019-08-03 10:48 | NUR ---
CAME TO CHECK ON PT AFTER A CODE WAS CALLED. HE IS BEING TRANSFERRED TO [facility]. PT HAS NO FAMILY IN TOWN BUT REQUESTED THAT A FAMILY FRIEND, DEBRA MI, BE NOTIFIED. SHE IS LISTED ON HIS PAPERWORK. SHE WAS NOTIFIED PER PT'S REQUEST.
--- NOTE | 2019-08-03 18:26 | EKG ---
[facility] [address] [place], [place] [address] Signed Normal sinus rhythm Septal infarct , age undetermined Abnormal ECG When compared with ECG of 31-MAY-2019 10:07, Septal infarct is now present Confirmed by ZOË COSBY MD ([id number]) on 08/03/2019 6:26:02 PM Electronically Signed By: ZOË COSBY MD 08/03/19 1826 PATIENT NAME: MARGARITA PERDOMO JOSE Electrocardiogram DATE OF : 50 PHYSICIAN: ZOË COSBY MD REPORT #: [id number] REPORT IS CONFIDENTIAL AND NOT TO BE RELEASED WITHOUT AUTHORIZATION
== END ==
LOC: ED 08:57
DX: S06.5X0A Traumatic subdural hemorrhage without loss of consciousness, initial encounter (principal); E10.649 Type 1 diabetes mellitus with hypoglycemia without coma; Z95.1 Presence of aortocoronary bypass graft; Z91.048 Other nonmedicinal substance allergy status; Z88.5 Allergy status to narcotic agent; Z79.02 Long term (current) use of antithrombotics/antiplatelets; Z79.899 Other long term (current) drug therapy; W01.198A Fall on same level from slipping, tripping and stumbling with subsequent striking against other object, initial encounter
CPT/HCPCS: 70450; 71045; 80053; 83690; 84484; 85025; 93005; 93010; 96361; 96374; 96375; 96376; 99285-25; J1953; J2405; J3480; J7040

== ENCOUNTER 2019-09-17 10:41 | Emergency (ER) | payer MEDICARE, OTHER ==
[~2019-09-17] VITALS: Ht 172.7 cm; Wt 77.0 kg
[~2019-09-17 10:41] MED LIST changes: -ASPIRIN81 MG PO; -HUMALOG100 UNITS/ SUB-Q; -INSULIN SYRING1 EA16 MISC; -KEPPRA500 MG PO
--- OUTSIDE RECORDS SUMMARY | 2019-09-17 10:44 | XMS ---
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 No recent Security Events currently on file CRITERIA MET - 6 ED Visits in 6 Months - [facility] - [facility] CARE PROVIDERS Name Unknown [facility] Current PHONE: [phone] Heydi Ridley Steward/Stewardess Third Class/Remote Sensing Analyst 02/14/2019-Current PHONE: [phone] VERNON ZAMORA Internal Medicine 11/06/2018-Current PHONE: Unknown Heydi Ridley Primary Care 02/14/2019-Current PHONE: [phone] Dr Zamora Primary Care Current PHONE: [phone] Andrew Primary Care Current DarencuTajjosiane PHONE: Unknown Ivana has no Care Guidelines for this patient. Care History Medical/Surgical 07/18/2019 [facility] - CASE MANAGEMENT CONSULT RECEIVED- CHW PROVIDED TO BHAVANA- BHARAT OF CLINIC FOR HIGH RISK FOLLOW UP. 05/23/2019 [facility] - [facility] [employer] [facility] C[facility]- DIRECTOR- UPDATED CARE PLAN - PATIENT WILL BE HAVING RIGHT OF WAY AGENT HOURS 2 1/2 HOURS IN THE AM AND 2 1/2 HOURS IN THE EVENING 7 DAYS A WEEK TO HELP PATIENT WITH MEDICATION AND MEAL PREPARATION. - IF PATIENT DOES NOT COMPLY WITH THE RIGHT OF WAY AGENT HOURS -THEY WILL HAVE PULL OUT SERVICES/CARE FOR PATIENT. 04/04/2019 [facility] - PATIENT NEXT PCP WITH DR ZAMORA ON 06/11/19. - PATIENT CURRENTLY RECEIVES CARE GIVING SERVICES FROM [facility]- THRU [facility]. - CHW DISCUSSED THE NEED FOR MEDICATION MANAGEMENT WITH PATIENT - [facility] DIRECTOR STATED THEY WILL BE TAKING OVER PATIENT MEDICATION MANAGEMENT STARTING THE WEEK OF 04/06/19. - PATIENT WILL BE DOCUMENTING BLOOD SUGAR LEVELS AND CARE GIVERS WILL BE WORKING WITH PATIENT ON DIABETES MANAGEMENT (MEAL PREPS, AND MEDICATION MANAGEMENT) - IF ANY QUESTIONS IN REGARDS TO MEDICATIONS AND OR CARE GIVING INFORMATION PLEASE CONTACT MANDA HOOD [employer] [facility]- [phone]. [place] VISIT COUNT (12 MO.) 18 MEGHANN Curry TOTAL 18 NOTE: Visits indicate total known visits. ED/UCC VISIT TRACKING (12 MO.) 09/17/2019 10:42 [place] TYPE: Emergency COMPLAINT: - LOW BLOOD SUGAR 08/03/2019 08:57 [place] TYPE: Emergency COMPLAINT: - DIABETIC ISSUE DIAGNOSES: - Other net sorter (current) drug therapy - 1 Type 1 diabetes mellitus with hypoglycemia without coma - Allergy status to narcotic agent status - Traum subdr hem w/o loss of consciousness, init - Presence of aortocoronary bypass graft - Fall same lev from slip/trip w strike agnst oth object, init - Headache - Other nonmedicinal substance allergy status - long-term (current) use of antithrombotics/antiplatelets 07/17/2019 08:44 [place] TYPE: Emergency [...] unspecified - Latex allergy status - Other net sorter (current) drug therapy - Cervicalgia - Personal [...] Personal history of nicotine dependence - Other net sorter (current) drug therapy 05/17/2019 10:09 [place] TYPE: Emergency COMPLAINT: - HIGH BLOOD SUGAR 04/18/2019 09:33 [place] TYPE: Emergency COMPLAINT: - FALL DIAGNOSES: - Disorientation, unspecified - Allergy status to narcotic agent status - Other net sorter (current) drug therapy - 1 Type 1 [...] mellitus w hypoglycemia w/o coma - Other mcfp (current) drug therapy - Adverse effect of insulin and oral hypoglycemic drugs, init 03/18/2019 15:52 [place] TYPE: Emergency COMPLAINT: - VOMITING 03/01/2019 16:37 [place] TYPE: Emergency COMPLAINT: - DIZZINESS DIAGNOSES: - 1 Type 1 diabetes mellitus with hypoglycemia without coma - Other mcfp (current) drug therapy - Dizziness and giddiness [...] - Unspecified fall, initial encounter - Other mcfp (current) drug therapy - long-term (current) use [...] to drugs and biolg substances - Other mcfp (current) drug therapy - Dizziness and giddiness [...] Allergy status to narcotic agent status - clam digger (current) use of insulin - Oth allergy status, oth than to drugs and biolg substances - 1 Type 2 diabetes mellitus with hypoglycemia without coma - Adverse effect of insulin and oral hypoglycemic drugs, init - Encounter for immunization - Other mcfp (current) drug therapy 10/14/2018 04:49 [place] TYPE: Emergency COMPLAINT: - ALT LOC DIAGNOSES: - Altered mental status, unspecified - Other net sorter (current) drug therapy - 1 Type 2 diabetes mellitus with ketoacidosis without coma INPATIENT VISIT TRACKING (12 MO.) 07/17/2019 08:45 [place] TYPE: Observation COMPLAINT: - DKA DIAGNOSES: - Gastro-esophageal reflux disease without esophagitis - Acute kidney failure, unspecified - 1 Type 1 diabetes mellitus with ketoacidosis without coma - Other net sorter (current) drug therapy - Patient's noncompliance w [...] of antithrombotics/antiplatelets - Athscl heart disease of [place] coronary artery w/o ang pctrs - Chronic [...] - Gastro-esophageal reflux disease without esophagitis - long-term (current) use of insulin - Presence of aortocoronary bypass graft - Acute kidney failure, unspecified - Unspecified mood [affective] disorder - Encounter for immunization - Athscl heart disease of [place] coronary artery w/o ang pctrs - Other net sorter (current) drug therapy - Allergy status to narcotic agent status - Patient's other noncompliance with medication regimen 05/17/2019 13:46 [place] [place] TYPE: Observation COMPLAINT: - DKA DIAGNOSES: - Metabolic encephalopathy - Chronic pain syndrome - 1 Type 1 diabetes mellitus with ketoacidosis without coma - long-term (current) use of antithrombotics/antiplatelets - Athscl heart disease of [place] coronary artery w/o ang pctrs - Patient's noncompliance w oth medical treatment and regimen - Allergy status to narcotic agent status - 1 Chronic kidney disease, stage 3 (moderate) - Presence of aortocoronary bypass graft - Hyperlipidemia, unspecified - 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 - Gastro-esophageal reflux disease without esophagitis - Other mcfp (current) drug therapy - Unspecified mood [affective] disorder - long-term (current) use of insulin 03/31/2019 10:17 [place] TYPE: Observation COMPLAINT: - DKA DIAGNOSES: - Nausea with vomiting, unspecified - Chronic pain syndrome - Presence of aortocoronary bypass graft - 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 - 1 Type 1 diabetes mellitus with ketoacidosis without coma - Hyperlipidemia, unspecified - Metabolic encephalopathy - Athscl heart disease of [place] coronary artery w/o ang pctrs - 1 Chronic kidney disease, stage 3 (moderate) - clam digger (current) use of antithrombotics/antiplatelets - Gastro-esophageal reflux disease without esophagitis - Patient's other noncompliance with medication regimen - Other net sorter (current) drug therapy - clam digger (current) use of insulin - Allergy status to narcotic agent status - Major depressive disorder, single episode, unspecified 03/18/2019 15:53 [place] TYPE: Observation COMPLAINT: - DKA DIAGNOSES: - Hyperlipidemia, unspecified - Other mcfp (current) drug therapy - long-term (current) use of insulin - Metabolic encephalopathy - Athscl heart disease of [place] coronary artery w/o ang pctrs - 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 - 1 Chronic kidney disease, stage 3 (moderate) - Presence of aortocoronary bypass graft - Nausea with vomiting, unspecified - 1 Type 1 diabetes mellitus with ketoacidosis without coma - Allergy status to narcotic agent status - clam digger (current) use of antithrombotics/antiplatelets - clam digger (current) use of opiate analgesic 01/04/2019 17:46 [...] agent status - Gastro-esophageal laceration-hemorrhage syndrome - clam digger (current) use of antithrombotics/antiplatelets - Patient's noncompliance w oth medical treatment and regimen - Athscl heart disease of [place] coronary artery w/o ang pctrs - 1 Type 1 diabetes mellitus with ketoacidosis without coma - clam digger (current) use of antithrombotics/antiplatelets - 1 Chronic kidney disease, stage 3 (moderate) - Patient's noncompliance w oth medical treatment and regimen - Other net sorter (current) drug therapy - Toxic encephalopathy - Hyperlipidemia, unspecified - Presence of aortocoronary bypass graft - Disorder of kidney and ureter, unspecified - Hyperlipidemia, unspecified - Allergy status to narcotic agent status - Breakdown (mechanical) of insulin pump, initial encounter - Athscl heart disease of [place] coronary artery w/o ang pctrs - Presence of aortocoronary bypass graft - Other net sorter (current) drug therapy - 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 10/14/2018 08:59 [facility] TYPE: General Medicine DIAGNOSES: - Hyperosmolality and hypernatremia - Acute kidney failure with tubular necrosis - Non-ST elevation (NSTEMI) myocardial infarction - Anemia in other chronic diseases classified elsewhere - Acute kidney failure, unspecified - 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
== END 2019-09-17 13:51 | disposition home or self-care (01) ==
LOC: ED 10:41
DX: E10.649 Type 1 diabetes mellitus with hypoglycemia without coma (principal); Z88.8 Allergy status to other drugs, medicaments and biological substances; Z88.5 Allergy status to narcotic agent; Z79.899 Other long term (current) drug therapy
CPT/HCPCS: 70450; 80053; 85025; 99285-25

== ENCOUNTER 2019-09-25 09:06 | Inpatient (IN) | payer MEDICARE, OTHER ==
[~2019-09-25] VITALS: Ht 172.7 cm; Wt 77.6 kg
--- OUTSIDE RECORDS SUMMARY | 2019-09-25 09:08 | XMS ---
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 No recent Security Events currently on file CRITERIA MET - 6 ED Visits in 6 Months - [facility] - Has Care Guidelines - [facility] - 2 Visits in 30 Days CARE PROVIDERS Name Unknown [facility] Current PHONE: [phone] Heydi Ridley Sky Diver/Drapery Inspector 02/14/2019-Current PHONE: [phone] VERNON LESTER Internal Medicine 11/06/2018-Current PHONE: Unknown Heydi Ridley Primary Care 02/14/2019-Current PHONE: [phone] Dr Lester [facility] Current PHONE: [phone] [facility] Current [facility] PHONE: Unknown Ivana has no Care Guidelines for this patient. Care History Medical/Surgical 09/18/2019 [facility] Patient has 09/23/[address] Montanez.\T\nbsp;Caregivers prep food\T\ nbsp;before they leave. \T\nbsp;Informed pt of\T\nbsp;need to keep a timer to eat regularly.\T\nbsp; 09/17/2019 [facility] - PATIENT HAS [facility]- 2 CAREGIVERS INVOLVED WITH PATIENT MEDICATION MONITORING. - PATIENT HAS A CAREGIVER IN THE AM WHO PROVIDES THE INSULIN DOSAGE TO PATIENT- PATIENT ADMINISTERS IT HIMSELF. - PATIENT HAS A CAREGIVER WHO COMES IN THE EVENING WHO PROVIDES THE INSULIN DOSAGE TO PATIENT- PATIENT ADMINISTERS IT HIMSELF. - MANDA- FRUIT SPRAYER FOR [facility] WILL BE IN CONTACT WITH PATIENT AFTER DISCHARGE TODAY FROM ED- SHE WILL THEN MEET WITH PATIENT AFTER THE HOLIDAYS 12/11 SHE WILL MAKE A HOME VISIT TO PATIENT. - THEY ARE NOT AUTHORIZED FOR 24 HOUR CARE TO PATIENT- THEY ARE PROVIDING THE HOURS THAT HAVE BEEN APPROVED FROM DHS/STATE. 07/18/2019 [facility] - ED CASE MANAGEMENT CONSULT RECEIVED- CHW PROVIDED TO BHAVANA- CHW OF CLINIC FOR HIGH RISK FOLLOW UP. [facility]12 MO.) [facility] NOTE: Visits indicate total known visits. ED/UCC VISIT TRACKING (12 MO.) 09[facility]25/2019 09[facility] [place] [facility] COMPLAINT: - BLOOD SUGAR PROBLEM 09/17/2019 10:42 [facility] [place] TYPE: Emergency COMPLAINT: - LOW BLOOD SUGAR DIAGNOSES: - 1 Type 1 diabetes mellitus with hypoglycemia without coma - Allergy status to narcotic agent status - Allergy status to oth drug/meds/biol subst status - Other intermediate designer (current) drug therapy 08/03/2019 08:57 [facility] [place] TYPE: Emergency COMPLAINT: - DIABETIC ISSUE DIAGNOSES: - Other residential (current) drug therapy - 1 Type 1 diabetes mellitus with hypoglycemia without coma - Allergy status to narcotic agent status - Traum subdr hem w/o loss of consciousness, init - Presence of aortocoronary bypass graft - Fall same lev from slip/trip w strike agnst ot object, init - Headache - Other nonmedicinal substance allergy status - correction (current) use of antithrombotics/antiplatelets 07/17/2019 08:44 [facility] [...] unspecified - Latex allergy status - Other intermediate designer (current) drug therapy - Cervicalgia - Personal [...] Personal history of nicotine dependence - Other intermediate designer (current) drug therapy 05/17/2019 10:09 [facility] [place] TYPE: Emergency COMPLAINT: - HIGH BLOOD SUGAR 04/18/2019 09:33 [facility] [place] TYPE: Emergency COMPLAINT: - FALL DIAGNOSES: - Disorientation, unspecified - Allergy status to narcotic agent status - Other residential (current) drug therapy - 1 Type 1 [...] mellitus w hypoglycemia w/o coma - Other residential (current) drug therapy - Adverse effect of insulin and oral hypoglycemic drugs, init 03/18/2019 15:52 [facility] [place] TYPE: Emergency COMPLAINT: - VOMITING 03/01/2019 16:37 [facility] [place] TYPE: Emergency COMPLAINT: - DIZZINESS DIAGNOSES: - 1 Type 1 diabetes mellitus with hypoglycemia without coma - Other intermediate designer (current) drug therapy - Dizziness and giddiness - Presence of aortocoronary bypass graft - Oth allergy status, oth than to drugs and biolg substances - Allergy status to narcotic agent status - intermediate manager (current) use of insulin 02/21/2019 15:04 [facility] [place] TYPE: Emergency COMPLAINT: - BS ISSUE DIAGNOSES: - Abrasion of scalp, initial encounter - 1 Type 1 diabetes mellitus without complications - Syncope and collapse - Syncope and collapse - Abrasion of scalp, initial encounter - Dizziness and giddiness - Unspecified fall, initial encounter - Other residential (current) drug therapy - intermediate manager (current) use of insulin - Allergy status [...] to drugs and biolg substances - Other intermediate designer (current) drug therapy - Dizziness and giddiness - Allergy status to narcotic agent status - Fracture of one rib, left side, init for clos fx 01/04/2019 14:49 [facility] [place] TYPE: Emergency COMPLAINT: - BLOOD SUGAR PROBLEM 11/16/2018 13:49 [facility] [place] TYPE: Emergency COMPLAINT: - DIABETIC PROBLEM DIAGNOSES: - 1 Type 1 diabetes mellitus without complications - intermediate manager (current) use of insulin - Hyperglycemia, unspecified - Oth allergy status, oth than to drugs and biolg substances - Allergy status to narcotic agent status 11/06/2018 02:46 [facility] [place] TYPE: Emergency COMPLAINT: - FALL,DIABETIC ISSUES DIAGNOSES: - Hypoglycemia, unspecified - Allergy status to narcotic agent status - correction (current) use of insulin - Oth allergy status, oth than to drugs and biolg substances - 1 Type 2 diabetes mellitus with hypoglycemia without coma - Adverse effect of insulin and oral hypoglycemic drugs, init - Encounter for immunization - Other residential (current) drug therapy 10/14/2018 04:49 [facility] [place] TYPE: Emergency COMPLAINT: - ALT LOC DIAGNOSES: - Altered mental status, unspecified - Other residential (current) drug therapy - 1 Type 2 diabetes mellitus with ketoacidosis without coma INPATIENT VISIT TRACKING (12 MO.) 07/17/2019 08:45 [facility] [place] TYPE: Observation COMPLAINT: - DKA DIAGNOSES: - Gastro-esophageal reflux disease without esophagitis - Acute kidney failure, unspecified - 1 Type 1 diabetes mellitus with ketoacidosis without coma - Other intermediate designer (current) drug therapy - Patient's noncompliance w oth medical treatment and regimen - Allergy status to narcotic agent status - correction (current) use of insulin - 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 - 1 Chronic kidney disease, stage 3 (moderate) - Presence of aortocoronary bypass graft - Hyperglycemia, unspecified - Hyperlipidemia, unspecified - intermediate manager (current) use of antithrombotics/antiplatelets - Athscl heart disease of [place] coronary artery w/o ang pctrs - Chronic pain syndrome 07/02/2019 15:16 [facility] [place] TYPE: Medical Surgical COMPLAINT: - DKA DIAGNOSES: - 1 Type 1 diabetes mellitus with ketoacidosis without coma - Metabolic encephalopathy - 1 Chronic kidney disease, stage 3 (moderate) - 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 - Chronic pain syndrome - intermediate manager (current) use of antithrombotics/antiplatelets - Hyperlipidemia, unspecified - Gastro-esophageal reflux disease without esophagitis - intermediate manager (current) use of insulin - Presence of aortocoronary bypass graft - Acute kidney failure, unspecified - Unspecified mood [affective] disorder - Encounter for immunization - 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 - Other residential (current) drug therapy - Allergy status to narcotic agent status - Patient's other noncompliance with medication regimen 05/17/2019 13:46 [facility] [place] TYPE: Observation COMPLAINT: - DKA DIAGNOSES: - Metabolic encephalopathy - Chronic pain syndrome - 1 Type 1 diabetes mellitus with ketoacidosis without coma - correction (current) use of antithrombotics/antiplatelets - Athscl heart disease of [place] coronary artery w/o ang pctrs - Patient's noncompliance w oth medical treatment and regimen - Allergy status to narcotic agent status - 1 Chronic kidney disease, stage 3 (moderate) - Presence of aortocoronary bypass graft - Hyperlipidemia, unspecified - 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 - Gastro-esophageal reflux disease without esophagitis - Other residential (current) drug therapy - Unspecified mood [affective] disorder - intermediate manager (current) use of insulin 03/31/2019 10:17 [facility] [place] TYPE: Observation COMPLAINT: - DKA DIAGNOSES: - Nausea with vomiting, unspecified - Chronic pain syndrome - Presence of aortocoronary bypass graft - 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 - 1 Type 1 diabetes mellitus with ketoacidosis without coma - Hyperlipidemia, unspecified - Metabolic encephalopathy - Athscl heart disease of [place] coronary artery w/o ang pctrs - 1 Chronic kidney disease, stage 3 (moderate) - correction (current) use of antithrombotics/antiplatelets - Gastro-esophageal reflux disease without esophagitis - Patient's other noncompliance with medication regimen - Other intermediate designer (current) drug therapy - correction (current) use of insulin - Allergy status to narcotic agent status - Major depressive disorder, single episode, unspecified 03/18/2019 15:53 [facility] [place] TYPE: Observation COMPLAINT: - DKA DIAGNOSES: - Hyperlipidemia, unspecified - Other intermediate designer (current) drug therapy - correction (current) use of insulin - Metabolic encephalopathy - Athscl heart disease of [place] coronary artery w/o ang pctrs - 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 - 1 Chronic kidney disease, stage 3 (moderate) - Presence of aortocoronary bypass graft - Nausea with vomiting, unspecified - 1 Type 1 diabetes mellitus with ketoacidosis without coma - Allergy status to narcotic agent status - intermediate manager (current) use of antithrombotics/antiplatelets - intermediate manager (current) use of opiate analgesic 01/04/2019 17:46 [...] agent status - Gastro-esophageal laceration-hemorrhage syndrome - intermediate manager (current) use of antithrombotics/antiplatelets - Patient's noncompliance w oth medical treatment and regimen - Athscl heart disease of [place] coronary artery w/o ang pctrs - 1 Type 1 diabetes mellitus with ketoacidosis without coma - intermediate manager (current) use of antithrombotics/antiplatelets - 1 Chronic kidney disease, stage 3 (moderate) - Patient's noncompliance w oth medical treatment and regimen - Other residential (current) drug therapy - Toxic encephalopathy - Hyperlipidemia, unspecified - Presence of aortocoronary bypass graft - Disorder of kidney and ureter, unspecified - Hyperlipidemia, unspecified - Allergy status to narcotic agent status - Breakdown (mechanical) of insulin pump, initial encounter - Athscl heart disease of [place] coronary artery w/o ang pctrs - Presence of aortocoronary bypass graft - Other intermediate designer (current) drug therapy - 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 DIAGNOSES: - Hyperosmolality and [...] ketoacidosis without coma - Gastrointestinal hemorrhage, unspecified [email or web address]
--- NOTE | 2019-09-25 14:06 | NUR ---
CHW CONTACTED MANDA SIMENTAL AT [facility]- [phone]. ONGOING CONCERNS WITH PATIENT AND HIS CARE. SHE STATED THEY ARE STILL HAVING THE CAREGIVERS GO INTO THE HOME TWICE A DAY TO HELP PATIENT WITH INSULIN-BLOOD SUGAR MONITORING AND FOOD PREPARATION. THEY ARE ONLY ALLOTED A CERTAIN AMOUNT OF HOURS BY THE STATE FOR CARE GIVING HOURS. SHE RECOMMENDS SNF PLACEMENT DUE TO NOT BEING ABLE TO HELP WITH PATIENT HEALTH IN THE HOME HE IS NON COMPLIANT WITH INSULIN AND WHEN CARE GIVERS ARE NOT AROUND THEY ARE NOT SURE WHAT HE IS EATING-PATIENT DOES SMOKE MARIJUANA ON A CONSISTENT BASIS PER MANDA. MANDA IS WILLING TO WRITE A LETTER OF RECOMMENDATION FOR A THE NEED FOR SNF PLACEMENT. CHW STATED SHE WOULD CONTACT APS AT [facility] AND MAKE A REPORT OF THE CONTINUE CONCERNS OF SELF NEGLECT.
--- NOTE | 2019-09-25 14:10 | NUR ---
CHW CONTACTED [facility] AND MADE A REPORT TO JAYME DE LUNA THE HORSEBACK EXCAVATOR WAS ANSWERING THE CALLS AT THAT TIME. CHW MADE A REPORT BASED ON HISTORY WITH PATIENT AND PER CONVERSATION WITH ZE AT [facility]. HAVE HIGH CONCERNS FOR PATIENT HEALTH IF PATIENT DOES GO BACK HOME, [facility] IS AWARE PATIENT IS IN THE HOSPITAL.
--- NOTE | 2019-09-25 14:45 | NUR ---
CBG 219 - INSULIN GTT TURNED DOWN TO 3.4 UNITS/HR.
--- NOTE | 2019-09-25 15:10 | NUR ---
CBG 209 - INSULIN GTT TURNED DOWN TO 2.8 UNITS/HR.
--- NOTE | 2019-09-25 15:10 | NUR ---
TRIED TO SPEAK WITH PATIENT IN ROOM. PATIENT ONLY MUMBLES AND KEEPS EYES CLOSED. WILL TRY AGAIN AT ANOTHER TIME. WILL CONTINUE TO FOLLOW.
--- NOTE | 2019-09-25 16:00 | NUR ---
CBG 213 - INSULIN GTT REMAINS AT 2.8 UNITS/HR.
--- NOTE | 2019-09-25 17:02 | NUR ---
DISCUSSED WITH DR. GUNN THAT MRI WILL NOT BE HAPPENING TODAY. ATTEMPTED TO HAVE MRI SCREENING FORM FILLED OUT WITH PATIENT'S INPUT AND TALKING TO HIS SISTER IN [place]. PT STARTING TO BECOME MORE COHERENT BUT IS NOW MORE IMPULSIVE. INSULIN GTT TURNED DOWN TO 2.4 UNITS/HR - CBG 186. PLAN TO LEAVE PATIENT ON INSULIN GTT OVERNIGHT PER DR. GUNN.
--- NOTE | 2019-09-25 17:51 | EKG ---
[facility] [address] [place] [address] Signed Sinus rhythm with 1st degree AV block Otherwise normal ECG When compared with ECG of 03-AUG-2019 10:00, Nonspecific T wave abnormality no longer evident in Anterior leads Confirmed by CRISTIAN GUNN DO ([id number]) on 09/25/2019 5:51:22 PM Electronically Signed By: CRISTIAN GUNN DO 09/25/19 1751 PATIENT NAME: RIC PERDOMONicolle GARCIA Electrocardiogram DATE OF : 50 PHYSICIAN: CRISTIAN GUNN DO REPORT #: [id number] REPORT IS CONFIDENTIAL AND NOT TO BE RELEASED WITHOUT AUTHORIZATION
--- NOTE | 2019-09-25 18:00 | NUR ---
CBG 181 - INSULIN GTT REMAINS AT 2.4 UNITS/HR. PT ATTEMPTING TO GET OUT OF BED MUTLIPLE TIMES AND SETTING BED ALARM OFF. PT USING LEFT ARM SOME BUT NOTES TO GET IT STUCK UNDER HIM OR NOT FULLY EXTENDED. PT NOT ABLE TO STAY AWAKE LONG OR HAVE ANY MEANINGFUL CONVERSATION, BUT SMALL WORDS AND SPEECH IS NOT SLURRED OR GARBLED. CONTINUE TO MONITOR.
--- NOTE | 2019-09-25 20:34 | NUR ---
BS CHECKED AT 2009 AND WAS 132, GTT NOW 1.6 PER PROTOCOL. PT WILL AWAKEN TO VOICE BUT SAYS LITTLE, IE "OF COURSE". AT FIRST DID NOT RESPOND TO COMMANDS BUT WILL FISHER GILL NET WITH R HAND. WILL MOVE L SIDE SPONT BUT DOES NOT FISHER GILL NET AND IF L ARM RAISED WILL LET IT FALL. WILL TRY TO GET OOB AND DOES MOVE LEFT SIDE WITH COORDINATION. LINEN CHNAGED LEAKED URINE AROUND POWELL. THINKS HE NEEDS TO VOID. GIVEN FREQ REMINDERS.
--- NOTE | 2019-09-25 22:10 | NUR ---
SLEEPING MOST OF TIME. WILL OCC TRY TO GET OOB HE THINKS HE NEEDS TO VOID. REMINDED. CONT TO MONITOR BS AND FOLLOW INSULIN GTT PROTOCOL.
--- NOTE | 2019-09-26 00:22 | NUR ---
AWAKENES TO NAME, WILL OBEY COMMANDS WITH R SIDE OF BODY BUT NOT LEFT. DOES MOVE LEFT SPONTANEOUSLY. SAYS RARE PHRASE.
--- NOTE | 2019-09-26 02:30 | NUR ---
CONT TO SLEEP MOST OF TIME. NO NEURO CHANGE. CONT ON INSULIN GTT, TITRATING PER PROTOCOL.
--- NOTE | 2019-09-26 04:15 | NUR ---
PT AWAKENS EASIER AND IS QUICKER TO RESPOND, WAS ABLE TO STATE WAS IN THE HOSPITAL, DID NOT ANSWER WHEN ASKED DATE. DID LIFT L ARM AND LEG ON REQUEST. REPOSITONS SELF IN BED.
--- NOTE | 2019-09-26 07:40 | NUR ---
Sleeping on right side, laying in bed. Report recieved from field care advocate RN.
--- NOTE | 2019-09-26 08:13 | NUR ---
CIRILO AV SPECIALIST HERE TALKING WITH PATIENT.
--- NOTE | 2019-09-26 08:16 | NUR ---
WAS SLEEPING, NOW AWAKE AND ANSWERING QUESTIONS. KNOWS SELF AND PLACE BUT NOT DATE AND SITUATION.
--- NOTE | 2019-09-26 08:23 | NUR ---
SPOKE WITH PATIENT IN ROOM. PATIENT AWAKE, UNABLE TO ANSWER SOME QUESTIONS. OR AVOIDS BY CHANGING SUBJECT AND USING FLIRTY LANGUAGE LIKE CALLING THIS CM "PRETTY" OR "SPECIAL EVIE LADY". DISCUSSED HE IS BEING INAPPROPRIATE WITH SUCH TALK AND TRIED TO RETURN TO QUESTIONS FOR ASSESSMENT. PATIENT KNOWS HE IS IN [place] AND THE HOSPITAL. IT IS UNCLEAR IF HE IS DISORIENTED OR JUST BEING EVASIVE SOME THINGS HE ANSWERS STRAIGHT. WILL CONTINUE TO FOLLOW.
--- NOTE | 2019-09-26 08:30 | NUR ---
IV EDUCATION GIVEN BUT PATIENT NOT ORIENTED TO TIME OR SITUATION, ONLY TO SELF AND PLACE.
--- NOTE | 2019-09-26 10:00 | NUR ---
PATIENT REMAINS WITH VARYING ANSWERS. SOMETIMES ANSWERS STAIGHT AND CORRECT, SOMETIMES AVOIDING AND FLIRTY. DISCUSSED WITH HIM THAT IS PROBABLY ISN'T SAFE LIVING ON HIS OWN ANYMORE. DISCUSSED THAT CAREGIVERS THROUGH [facility] ARE PROBABLY GOING TO TERMINATE HIS CARE AND HE IS UNSAFE BY HIMSELF. DISCUSSED THAT HE IS MOST LIKELY NOT TAKING HIS MEDICATIONS CORRECTLY AND HOW DANGEROUS THIS IS, COULD EVEN BE FATAL WITH HIS CONDITIONS. DISCUSSED THAT HE PROBABLY NEEDS SNF CARE AT THIS POINT WITH THE OPTION OF MOVING TO ASSISTED LIVING CARE. ENCOURAGED HIM TO CONSIDER THIS PLAN IT WOULD BE A SAFE PLAN FOR HIS FUTURE CARE. HE STATES "OK, I'LL THINK ABOUT THIS". WILL CONTINUE TO FOLLOW.
--- NOTE | 2019-09-26 10:17 | NUR ---
bedside swallow eval completed. no swallowing defecits observed.
--- NOTE | 2019-09-26 10:20 | NUR ---
UP TO COMMODE WITH HELP, STATES NEEDS TO HAVE A BM.
--- NOTE | 2019-09-26 10:24 | NUR ---
AT 1000 TITRATED IV INSULIN INFUSION TO 1.4UNITS/HR. DOUBLE CHECKED WITH BRAD DUEÑAS.
--- NOTE | 2019-09-26 10:42 | NUR ---
OT INTERVIEWING PATIENT.
--- NOTE | 2019-09-26 11:32 | NUR ---
Finished working with PT, walked to end of CCU hallway and back to room. Now up in chair, states hungry. clear liquid tray ordered.
--- NOTE | 2019-09-26 11:52 | NUR ---
spilled some food on himself. linens changed and bedbath given with some assistance from patient. refusing antiperspirant. continues to sit up in chair. chair pressure alarm on and in place, curtain and window blinds open.
--- NOTE | 2019-09-26 11:56 | NUR ---
at 11am, titrated insulin gtt down to 1.2units/hr per protocol. double checked with Bindu DUEÑAS.
--- NOTE | 2019-09-26 13:18 | NUR ---
1300 INSULIN IV INFUSION UP TO 1.7 PER PROTOCOL. DOUBLE CHECKED WITH BRAD DUEÑAS.
--- NOTE | 2019-09-26 13:26 | NUR ---
DR GUNN IN ROOM SEEING PATIENT.
--- NOTE | 2019-09-26 13:46 | NUR ---
POWELL CATHETER REMOVED PER MD INSTRUCTION. PATIENT TOLERATED WELL. IV INSULIN AND FLUIDS STOPPED PER MD ORDER. IV'S FLUSHED. PATIENT PREPARING FOR MRI.
--- NOTE | 2019-09-26 15:01 | NUR ---
Back to room after MRI, before going to the chair we went on a walk to the end of the CCU hallway and back to his chair. rosalba whitfield ordered.
--- NOTE | 2019-09-26 16:03 | NUR ---
Called for help. Was incontinent of urine, large amount. New linens. Up to Commode. Back to chair for dinner.
--- NOTE | 2019-09-26 16:19 | NUR ---
Had MRI today, Walked yepez with standby assist 2 times. Up in chair most of the day. Diet advanced, IV insulin stopped. Now AC/HS glucose checks. Some innappropriate comments to staff. Goode catheter DC'ed.
--- NOTE | 2019-09-26 16:50 | NUR ---
DR Berman aware of 298 blood glucose, to put in order for more lantus.
--- NOTE | 2019-09-26 19:45 | NUR ---
RECEIVED REPORT FROM DAY SHIFT. pt SITTING IN CHAIR. DENIES PAIN AT THIS TIME. JOKES INCLUDE INAPPROPRIATE SUBJECT MATTER, ABLE TO REDIRECT pt AT THIS TIME. HARD OF HEARING. DISORIENTED TO DATE. AMBULATED TO BATHROOM 1PA, UNSTEADY ON FEET AT TIMES. PERFORMED NIGHTLY CARES. ASSESSMENT DONE. RESTING IN BED WITH WARM BLANKETS. MEDICATION GIVEN (SEE MAR). NEUROCHECKS DONE. CALL LIGHT WITHIN REACH.
--- NOTE | 2019-09-26 21:30 | NUR ---
MEDICATION GIVEN (SEE MAR). NO REQUESTS AT THIS TIME. CALL LIGHT WITHIN REACH.
--- NOTE | 2019-09-26 22:44 | NUR ---
ROUNDED ON pt. RESTING IN BED, EYES CLOSED, RESPIRATIONS REGULAR AND UNLABORED. CALL LIGHT WITHIN REACH.
--- NOTE | 2019-09-27 00:45 | NUR ---
pt RESTING IN BED. ASSESSMENT DONE. pt USING URINAL. pt GIVEN WIPES TO CLEAN HIS BODY. LINENS CHANGED. pt IN BED WITH WARM BLANKETS. CALL LIGHT WITHIN REACH.
--- NOTE | 2019-09-27 01:41 | NUR ---
pt RESTING IN BED. EYES CLOSED, SNORING. CALL LIGHT WITHIN REACH.
--- NOTE | 2019-09-27 03:48 | NUR ---
ROUNDED ON pt. RESTING WITH EYES CLOSED, RESPIRATIONS REGULAR AND UNLABORED. CALL LIGHT WITHIN REACH.
--- NOTE | 2019-09-27 05:30 | NUR ---
LAB INTO DRAW. ASSESSMENT DONE. NO CHANGES FROM PRIOR ASSESSMENT. pt DENIED NEED TO URINATE AT THIS TIME, WILL CALL WHEN READY. CALL LIGHT WITHIN REACH.
--- NOTE | 2019-09-27 06:57 | NUR ---
ROUNDED ON pt. RESTING WITH EYES CLOSED, RESPIRATIONS REGULAR AND UNLABORED. CALL LIGHT WITHIN REACH.
--- NOTE | 2019-09-27 07:52 | NUR ---
PATIENT AWAKE, ALERT, ORIENTED AND TALKATIVE. PT MOVING ALL 4 EXT AND NEURO EXAM IS WITOUT DEFICITS AT THIS TIME. PT UP TO CHAIR HE VOIDED IN URINAL AND ON BED. CBG 96 AND GIVEN SMALL AMOUNT OF ORANGE JUICE. BREAKFAST ORDERED. ASSESSMENT COMPLETE. PT ASKED TO NOT GET UP WITHOUT HELP AND TO USE CALL LIGHT. WILL MONITOR CLOSELY.
--- NOTE | 2019-09-27 09:42 | NUR ---
PATIENT WORKING WITH PHYS THERAPY AT THIS TIME. PT ATE 100% OF HIS BREAKFAST WITHOUT ANY DIFFICULTY.
--- NOTE | 2019-09-27 10:45 | NUR ---
SPOKE WITH PATIENT IN ROOM. PATIENT MORE ALERT TODAY. STILL DOES NOT ANSWER ORIENTATION QUESTIONS DIRECTLY OR CORRECTLY. PATIENT CONTINUES TO MAKE FLIRTY STATES SUCH "I'M HERE WITH YOU MY EVIE LADY". EXPRESSED CONCERN AGAIN ABOUT PATIENT RETURNING HOME TO SELF CARE. DISCUSSED AT LENGTH THE INCREASING VISITS TO ED AND ADMISSION DUE TO HIS HEALTH FAILURE AT HOME. DISCUSSED CONCERN THAT HE NEEDS 24/7 HELP AND MEDICATION MANAGEMENT. ENCOURAGED HIM TO CONSIDER SNF PLACEMENT AND MOVING TO ASSISTED LIVING SITUATION EVENTUALLY. HE STATES "WELL YOU'VE GIVEN MR LANE TO THINK ABOUT". WILL CONTINUE TO FOLLOW, HOPEFULLY WILL BECOME MORE ORIENTED SOON.
--- NOTE | 2019-09-27 11:20 | NUR ---
PATIENT RESTING IN CHAIR STILL AT THIS TIME. HR IN THE 60s. PT WAS GIVEN 20 UNITS OF LANTUS PER DR. GUNN VERBAL ORDER THIS AM. WILL CONTINUE TO MONITOR.
--- NOTE | 2019-09-27 13:52 | NUR ---
REPORT GIVEN TO AGNIESZKA ON MED/SURG AND PATIET AMBULATES TO ROOM 110. PT STEADY ON FEET, BUT DOES USE THE CANE TO BALANCE.
--- NOTE | 2019-09-27 14:00 | NUR ---
1343: REPORT RECIEVED FROM PRIMITIVO DUEÑAS. PT ARRIVED TO MED SURG ROOM 110 AND HE WAS ORIENTED TO HIS ROOM AND GIVEN A CALL VENEGAS. PT WALKED TO HIS ROOM WITH A CANE AND A SBA. CHAIR ALARM PLACED.
--- NOTE | 2019-09-27 16:18 | NUR ---
PT resting in his chair and denies any problems at this time.
--- NOTE | 2019-09-27 16:25 | NUR ---
I was called by the pt's friend (Leidy Navarrete) who Ml states it is okay to speak with. Leidy states that she belives the pt does not have any insulin at home and that he still has some confuison. Leidy states concerns with the pt going home without help as well. Charge nurse was notified of the friends concern and states that the MD and project planner are aware of this. Will pass this on in report for the following shift.
--- NOTE | 2019-09-27 16:43 | NUR ---
Jairo DUEÑAS notified of the pt's friend (Leidy Navarrete) concerns of the pt going home and lack of insulin at home.
--- NOTE | 2019-09-27 16:55 | NUR ---
PT DENIES ANY PROBLEMS AT THIS TIME.
--- NOTE | 2019-09-27 17:49 | NUR ---
Pt sitting in his chair eating dinner at this time.
--- NOTE | 2019-09-27 20:33 | NUR ---
PATIENT SITTING UP IN THE BEDSIDE CHAIR WATCHING TV AT THIS TIME. CALL LIGHT IN REACH.
--- NOTE | 2019-09-27 21:15 | NUR ---
HOSPITALITY TEAM MEMBER ROUNDING NOTE. PT RESTING IN BED, TV REMOTE MOVED WITHIN PT'S REACH. PT STATES THAT HE IS READY TO GO TO SLEEP. WATER REFILLED. WHITE BOARD UPDATED. CALL LIGHT IN REACH. BED ALARM ACTIVE. ROOM IN VIEW OF RN STATION.
--- NOTE | 2019-09-27 21:49 | NUR ---
PATIENT'S EVENING BLOOD SUGAR THIS EVENING WAS 84 AND WAS GIVEN TO YOGARTS TO EAT TO KEEP HIS SUGAR UP. PATIENT RESTING QUIETLY IN BED WITH BED ALARM ON AT THIS TIME.
--- NOTE | 2019-09-27 22:48 | NUR ---
PATIENT HAS FINISHED HIS YOGART AND IS RESTING QUIETLY IN HIS LEFT SIDE, RESPIRATIONS REGULAR AND EVEN, EYES CLOSED. CALL LIGHT IN REACH.
--- NOTE | 2019-09-28 01:10 | NUR ---
PATIENT AWAKE AND UP TO USE THE URINAL. VOIDED 300MLS AND BACK TO BED. BED ALARM ON. CALL LIGHT IN REACH.
--- NOTE | 2019-09-28 03:10 | NUR ---
PATIENT RESTING QUIETLY ON HIS LEFT SIDE, RESPIRATIONS REGULAR AND EVEN, EYES CLOSED, BED ALARM ON, CALL LIGHT IN REACH.
--- NOTE | 2019-09-28 04:39 | NUR ---
PATIENT STARTED THE EVENING SITTING UP IN THE BEDSIDE ARMCHAIR WATCHING TV AND THEN WENT TO BED WITH 1PSBA AND HIS CAN. PATIENT HAS BEEN IN A GOOD HUMOR THOUGH SLIGHTLY CONFUSED AT TIMES. GOT UP ONCE SO FAR TO VOID WITH STANDBY ASSIST IN THE URINAL. PATIENT CURRENTLY RESTING QUIETLY ON HIS LEFT SIDE, EYES CLOSED RESPIRATIONS REGULAR AND EVEN, EYES CLOSED, CALL LIGHT IN REACH AND BED ALARM ON.
--- NOTE | 2019-09-28 06:19 | NUR ---
PATIENT WAS UP ONCE DURING THE NIGHT 1 P STANDBY TO BATHROOM. FRESH WATER WAS GIVEN CALL LIGHT IN REACH
--- NOTE | 2019-09-28 07:50 | NUR ---
PATIENT RESTING IN BED, EYES CLOSED. RN NOTIFIED OF BLOOD SUGAR LEVEL AND GAVE PERMISSION TO OFFER PATIENT APPLEJUICE. PATIENT DRANK 150CC OF APPLEJUICE AND IS SITTING UP IN BED WAITING FOR BREAKFAST. RN NOTIFIED. CALL LIGHT IN REACH. PATIENT PERFORMED AM CARE. NO OTHER NEEDS AT THIS TIME.
--- NOTE | 2019-09-28 09:32 | NUR ---
PT IS RESTING COMFORTABLY. PT WAS APROPRIATE THIS AM. BLOOD SUGAR WAS 77 THIS AM, JUICE GIVEN WITH GOOD RESULTS. ATE A FULL BREAKFAST.
--- NOTE | 2019-09-28 10:09 | NUR ---
PATIENT SITTING UP IN BEDSIDE RELCINER, PATIENT IS TALKATIVE AND IS LOOKING FORWARD TO GETTING TO GO HOME. CALL LIGHT IN REACH. NO OTHER NEEDS AT THIS TIME.
--- NOTE | 2019-09-28 10:10 | NUR ---
PT HAD UNMEASURED VOID IN BED/ON FLOOR. RN ASSISTED IN CLEANING UP. CHANGED BED LINENS, CHANGED HIS GOWN AND SOCKS. PT SAT ON TOILET, STATES HE HAD A BM. PT IS NOW SITTING IN CHAIR. HAS A PULL UP ON .
[2019-09-28] MEDS ORDERED: LEVEMIR100 UNIT/1 SUB-Q (11:19)
[2019-09-28] MEDS ORDERED: KEPPRA500 MG PO (11:19)
--- NOTE | 2019-09-28 15:03 | NUR ---
DISCHARGE TEACHING COMPLETE. DISCUSSED WHEN TO CALL THE DOCTOR, FOLLOW UP, DIET, ACTIVTY. PT STATED HE IS MISSING HIS CANE, SHOES, AND PANTS. HOWEVER, ON HIS INTAKE FORM ONLY HIS UNDERWEAR AND SID SHIRT IS NOTED. PT STATES THAT HE FEELS COMFORTABLE TAKING CARE OF HIMSELF AT HOME, UNDERSTANDS THE CARE PLAN FOR HOME. PT DECLINED TO TAKE THE CANE HOME, STATED HE WOULD BE ABLE TO GET IN THE HOUSE WITHOUT IT.
--- NOTE | 2019-09-30 09:37 | NUR ---
CHW MARY ELLEN- MANDA AT [facility] STATED PATIENT WAS DISCHARGED FROM THE HOSPITAL AND HAS HOME HEALTH ORDERS AT [facility]. CHW STATED DISCHARGE INFORMATION WITH NEUROLOGY CONSULT.
--- NOTE | 2019-09-30 09:38 | NUR ---
CHW CONTACTED [facility] STATED THEY HAVE NOT WORKED WITH THE PATIENT IN THE PAST AND WOULD BE WILLING TO-CHW PROVIDED PATIENT HISTORY AND PROVIDED [facility] CONTACT NUMBER FOR FURTHER FOLLOW UP AND CARE NEEDS.
--- NOTE | 2019-09-30 17:30 | NUR ---
SCANNED HOME HEALTH ORDER, CLINICALS TO [facility] TO [facility]UDH[facility] AT [email or web address].
== END 2019-09-28 14:30 | disposition home health service (06) | DRG 100 ==
LOC: ED 09:06 → CCU 13:07 → MS 09-27 13:45
PROVIDERS: ADMIT Student in an Organized Health Care Education/Training Program
DX: G40.909 Epilepsy, unspecified, not intractable, without status epilepticus (principal); E10.10 Type 1 diabetes mellitus with ketoacidosis without coma; G93.41 Metabolic encephalopathy; E10.22 Type 1 diabetes mellitus with diabetic chronic kidney disease; N18.3 Chronic kidney disease, stage 3 (moderate); E78.5 Hyperlipidemia, unspecified; G89.4 Chronic pain syndrome; E87.6 Hypokalemia; K21.9 Gastro-esophageal reflux disease without esophagitis; S06.5X9D Traumatic subdural hemorrhage with loss of consciousness of unspecified duration, subsequent encounter; N28.9 Disorder of kidney and ureter, unspecified; I25.10 Atherosclerotic heart disease of native coronary artery without angina pectoris; Z95.1 Presence of aortocoronary bypass graft; Z88.5 Allergy status to narcotic agent; Z79.02 Long term (current) use of antithrombotics/antiplatelets; Z79.4 Long term (current) use of insulin; Z79.899 Other long term (current) drug therapy; W18.00XD Striking against unspecified object with subsequent fall, subsequent encounter
CPT/HCPCS: 36415; 36600; 70210; 70450; 70551; 71045; 80048; 80053; 80061; 81001; 82010; 82140; 82800; 82803; 83735; 83930; 84100; 84484; 85025; 92523; 93005; 93010; 93880; 96361; 96365; 96375; 96376; 97116; 97162; 97165; 97530; 99285-25; G0480; J1650; J1815; J1953; J2405; J7030; J7042; J7060; J7121

== ENCOUNTER 2019-10-13 17:46 | Emergency (ER) | payer MEDICARE, OTHER ==
[~2019-10-13] VITALS: Ht 172.7 cm; Wt 77.6 kg
[~2019-10-13 17:46] MED LIST changes: +KEPPRA500 MG PO
--- OUTSIDE RECORDS SUMMARY | 2019-10-13 17:48 | XMS ---
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 Security Chemical Operations Specialist Events No recent Security Events currently on file CRITERIA MET - 6 ED Visits in 6 Months - [facility] - Has Care Guidelines - [facility] - 2 Visits in 30 Days CARE PROVIDERS Name Unknown [facility] Current PHONE: [phone] Heydi Ridley Pit Steward/Facility Specialist 02/14/2019-Current PHONE: [phone] VERNON ZAMORA Internal Medicine 11/06/2018-Current PHONE: Unknown Heydi Ridley [facility] 02/14/2019-Current PHONE: [phone] Dr Zamora [facility] Current PHONE: [phone] [facility] Current [facility] PHONE: Unknown Ivana has no Care Guidelines for this patient. Care History Medical/Surgical 10/03/2019 [facility] - PATIENT HAS A FOLLOW UP APT WITH DR VILLANUEVA Monday10/11/19 @ 9:00AM. 10/03/2019 [facility] - PATIENT ENDOCRINILOGIST- DR LIZZ FENG IN [facility] [phone]. LAST SAW PATIENT 04/18/19. - CHW NOTIFIED MANDA AT [facility] OF PATIENT CONTINUOUS IMPROVEMENT SPECIALIST, AND APT WITH NEUROLOGIST NEXT WEEK. - PATIENT CONTINUOUS IMPROVEMENT SPECIALIST WAS NOT AWARE OF ALL ED AND INPATIENT ADMISSIONS SINCE MARCH 2019. CHW REQUESTED ALL RECORDS TO BE SENT TO DR FENG OFFICE. 10/02/2019 [facility] -DR RAYA MONROE WORKS ALONG SIDE WITH DR JOHNSON NEUROLOGIST-[facility] [place], [place].\T\nbsp; APT Monday10/07/19 @ 1:40PM. E.D. VISIT COUNT (12 MO.) 20 [facility] TOTAL 20 NOTE: Visits indicate total known visits. ED/UCC VISIT TRACKING (12 MO.) 10/13/2019 17:47 [facility] [place] TYPE: Emergency COMPLAINT: - SYNCOPE 09/25/2019 09:06 [facility] [place] COMPLAINT: - BLOOD SUGAR PROBLEM 09/17/2019 10:42 [facility] [place] TYPE[place] Emergency COMPLAINT: - LOW BLOOD SUGAR DIAGNOSES: - 1 Type 1 diabetes mellitus with hypoglycemia without coma - Allergy status to narcotic agent status - Allergy status to ot drug/meds/biol subst status - Other alf (current) drug therapy 08/03/2019 08:57 [facility] [place] TYPE: Emergency COMPLAINT: - DIABETIC ISSUE DIAGNOSES: - Other alf (current) drug therapy - 1 Type 1 diabetes mellitus with hypoglycemia without coma - Allergy status to narcotic agent status - Traum subdr hem w/o loss of consciousness, init - Presence of aortocoronary bypass graft - Fall same lev from slip/trip w strike agnst [facility] object, init - Headache - Other nonmedicinal substance allergy status - [facility] (current) use of antithrombotics/antiplatelets 07/17/2019 08:44 [facility] [...] unspecified - Latex allergy status - Other alf (current) drug therapy - Cervicalgia - Personal [...] Personal history of nicotine dependence - Other alf (current) drug therapy 05/17/2019 10:09 [facility] [place] TYPE: Emergency COMPLAINT: - HIGH BLOOD SUGAR 04/18/2019 09:33 [facility] [place] TYPE: Emergency COMPLAINT: - FALL DIAGNOSES: - Disorientation, unspecified - Allergy status to narcotic agent status - Other termite treater helper (current) drug therapy - 1 Type 1 [...] mellitus w hypoglycemia w/o coma - Other termite treater helper (current) drug therapy - Adverse effect of insulin and oral hypoglycemic drugs, init 03/18/2019 15:52 [facility] [place] TYPE: Emergency COMPLAINT: - VOMITING 03/01/2019 16:37 [facility] [place] TYPE: Emergency COMPLAINT: - DIZZINESS DIAGNOSES: - 1 Type 1 diabetes mellitus with hypoglycemia without coma - Other termite treater helper (current) drug therapy - Dizziness and giddiness - Presence of aortocoronary bypass graft - Oth allergy status, oth than to drugs and biolg substances - Allergy status to narcotic agent status - termite control representative (current) use of insulin 02/21/2019 15:04 [facility] [place] TYPE: Emergency COMPLAINT: - BS ISSUE DIAGNOSES: - Abrasion of scalp, initial encounter - 1 Type 1 diabetes mellitus without complications - Syncope and collapse - Syncope and collapse - Abrasion of scalp, initial encounter - Dizziness and giddiness - Unspecified fall, initial encounter - Other termite treater helper (current) drug therapy - termite control representative (current) use of insulin - Allergy status [...] to drugs and biolg substances - Other alf (current) drug therapy - Dizziness and giddiness - Allergy status to narcotic agent status - Fracture of one rib, left side, init for clos fx 01/04/2019 14:49 [facility] [place] TYPE: Emergency COMPLAINT: - BLOOD SUGAR PROBLEM 11/16/2018 13:49 [facility] [place] TYPE: Emergency COMPLAINT: - DIABETIC PROBLEM DIAGNOSES: - 1 Type 1 diabetes mellitus without complications - [facility] (current) use of insulin - Hyperglycemia, unspecified - Oth allergy status, oth than to drugs and biolg substances - Allergy status to narcotic agent status 11/06/2018 02:46 [facility] [place] TYPE: Emergency COMPLAINT: - FALL,DIABETIC ISSUES DIAGNOSES: - Hypoglycemia, unspecified - Allergy status to narcotic agent status - termite control representative (current) use of insulin - Oth allergy status, oth than to drugs and biolg substances - 1 Type 2 diabetes mellitus with hypoglycemia without coma - Adverse effect of insulin and oral hypoglycemic drugs, init - Encounter for immunization - Other termite treater helper (current) drug therapy 10/14/2018 04:49 [facility] [place] TYPE: Emergency COMPLAINT: - ALT LOC DIAGNOSES: - Altered mental status, unspecified - Other alf (current) drug therapy - 1 Type 2 diabetes mellitus with ketoacidosis without coma INPATIENT VISIT TRACKING (12 MO.) 09/25/2019 13:07 [facility] [place] TYPE: Medical Surgical COMPLAINT: - DKA, STROKE DIAGNOSES: - termite control representative (current) use of insulin - Allergy status to narcotic agent status - Chronic pain syndrome - Hyperlipidemia, unspecified - Disorder of kidney and ureter, unspecified - Metabolic encephalopathy - Gastro-esophageal reflux disease without esophagitis - termite control representative (current) use of antithrombotics/antiplatelets - Epilepsy, unsp, not intractable, without status epilepticus - Presence of aortocoronary bypass graft - Hypokalemia - 1 Type 1 diabetes mellitus with ketoacidosis without coma - 1 Chronic kidney disease, stage 3 (moderate) - Hyperlipidemia, unspecified - 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 - Presence of aortocoronary bypass graft - Athscl heart disease of [place] coronary artery w/o ang pctrs - 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 - 1 Chronic kidney disease, stage 3 (moderate) - Presence of aortocoronary bypass graft - Hyperglycemia, unspecified - Hyperlipidemia, unspecified - [facility] (current) use of antithrombotics/antiplatelets - Athscl heart disease of [place] coronary artery w/o ang pctrs - Chronic pain syndrome 07/02/2019 15:16 [facility] [place] TYPE: Medical Surgical COMPLAINT: - DKA DIAGNOSES: - 1 Type 1 diabetes mellitus with ketoacidosis without coma - Metabolic encephalopathy - 1 Chronic kidney disease, stage 3 (moderate) - 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 - Chronic pain syndrome - [facility] (current) use of antithrombotics/antiplatelets - Hyperlipidemia, unspecified - Gastro-esophageal reflux disease without esophagitis - termite control representative (current) use of insulin - Presence of aortocoronary bypass graft - Acute kidney failure, unspecified - Unspecified mood [affective] disorder - Encounter for immunization - Athscl heart disease of [place] coronary artery w/o ang pctrs - Other alf (current) drug therapy - Allergy status to narcotic agent status - Patient's other noncompliance with medication regimen 05/17/2019 13:46 [facility] [place] TYPE: Observation COMPLAINT: - DKA DIAGNOSES: - Metabolic encephalopathy - Chronic pain syndrome - 1 Type 1 diabetes mellitus with ketoacidosis without coma - termite control representative (current) use of antithrombotics/antiplatelets - Athscl heart disease of [place] coronary artery w/o ang pctrs - Patient's noncompliance w oth medical treatment and regimen - Allergy status to narcotic agent status - 1 Chronic kidney disease, stage 3 (moderate) - Presence of aortocoronary bypass graft - Hyperlipidemia, unspecified - 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 - Gastro-esophageal reflux disease without esophagitis - Other alf (current) drug therapy - Unspecified mood [affective] disorder - termite control representative (current) use of insulin 03/31/2019 10:17 [facility] [place] TYPE: Observation COMPLAINT: - DKA DIAGNOSES: - Nausea with vomiting, unspecified - Chronic pain syndrome - Presence of aortocoronary bypass graft - 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 - 1 Type 1 diabetes mellitus with ketoacidosis without coma - Hyperlipidemia, unspecified - Metabolic encephalopathy - Athscl heart disease of [place] coronary artery w/o ang pctrs - 1 Chronic kidney disease, stage 3 (moderate) - termite control representative (current) use of antithrombotics/antiplatelets - Gastro-esophageal reflux disease without esophagitis - Patient's other noncompliance with medication regimen - Other alf (current) drug therapy - [facility] (current) use of insulin - Allergy status to narcotic agent status - Major depressive disorder, single episode, unspecified 03/18/2019 15:53 [facility] [place] TYPE: Observation COMPLAINT: - DKA DIAGNOSES: - Hyperlipidemia, unspecified - Other alf (current) drug therapy - [facility] (current) use of insulin - Metabolic encephalopathy - Athscl heart disease of [place] coronary artery w/o ang pctrs - 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 - 1 Chronic kidney disease, stage 3 (moderate) - Presence of aortocoronary bypass graft - Nausea with vomiting, unspecified - 1 Type 1 diabetes mellitus with ketoacidosis without coma - Allergy status to narcotic agent status - [facility] (current) use of antithrombotics/antiplatelets - termite control representative (current) use of opiate analgesic 01/04/2019 17:46 [...] agent status - Gastro-esophageal laceration-hemorrhage syndrome - [facility] (current) use of antithrombotics/antiplatelets - Patient's noncompliance w oth medical treatment and regimen - Athscl heart disease of [place] coronary artery w/o ang pctrs - 1 Type 1 diabetes mellitus with ketoacidosis without coma - termite control representative (current) use of antithrombotics/antiplatelets - 1 Chronic kidney disease, stage 3 (moderate) - Patient's noncompliance w oth medical treatment and regimen - Other alf (current) drug therapy - Toxic encephalopathy - Hyperlipidemia, unspecified - Presence of aortocoronary bypass graft - Disorder of kidney and ureter, unspecified - Hyperlipidemia, unspecified - Allergy status to narcotic agent status - Breakdown (mechanical) of insulin pump, initial encounter - Athscl heart disease of [place] coronary artery w/o ang pctrs - Presence of aortocoronary bypass graft - Other alf (current) drug therapy - 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 TYPE: General Medicine DIAGNOSES: - Hyperosmolality [...] ketoacidosis without coma - Gastrointestinal hemorrhage, unspecified [email or web address]
--- NOTE | 2019-10-14 08:02 | EKG ---
[facility] [address] [facility] [address] [place] [address] Signed Sinus bradycardia with 1st degree AV block Anteroseptal infarct , age undetermined Abnormal ECG When compared with ECG of 25-SEP-2019 09:37, Anteroseptal infarct is now present T wave amplitude has decreased in Anterior leads Confirmed by ZOË COSBY MD ([id number] on 10/14/2019 8:02:46 AM Electronically Signed By: ZOË COSBY MD 10/14/19 0802 PATIENT NAME: MARGARITA PERDOMO Electrocardiogram DATE OF : 50 PHYSICIAN: ZOË COSBY MD REPORT #: [id number] REPORT IS CONFIDENTIAL AND NOT TO BE RELEASED WITHOUT AUTHORIZATION
== END 2019-10-13 21:33 | disposition home or self-care (01) ==
LOC: ED 17:46
DX: R55 Syncope and collapse (principal); E10.9 Type 1 diabetes mellitus without complications; Z88.5 Allergy status to narcotic agent; Z79.4 Long term (current) use of insulin; Z79.899 Other long term (current) drug therapy
CPT/HCPCS: 70450; 80053; 83735; 84484; 85025; 93005; 93010; 99284-25; J7121

== ENCOUNTER 2019-11-04 09:52 | Inpatient (IN) | payer MEDICARE, OTHER ==
[~2019-11-04] VITALS: Ht 172.7 cm; Wt 84.1 kg
--- OUTSIDE RECORDS SUMMARY | 2019-11-04 09:56 | XMS ---
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 Security Nozzle Operator Events No recent Security Events currently on file CRITERIA MET - 6 ED Visits in 6 Months - [facility] - Has Care Guidelines - [facility] - 2 Visits in 30 Days CARE PROVIDERS Name [facility] Current PHONE: [phone] Heydi Ridley Portfolio Strategist/Business Systems Advisor 02/14/2019-Current PHONE: [phone] VERNON ZAMORA Internal Medicine 11/06/2018-Current PHONE: Unknown Heydi Ridley Primary Care 02/14/2019-Current PHONE: [phone] Dr Zamora [facility] Current PHONE: [phone] [facility] Current [facility] PHONE: Unknown Ivana has no Care Guidelines for this patient. Care History Medical/Surgical 10/14/2019 [facility] Patient caregiver witnessed syncope and called EMS.\T\nbsp; [facility]\T\nbsp;NEEDS TO BE CONTACTED UPON DISCHARGE TO COORDINATE CARE.\T\nbsp; Home care will not know when pt is home and will not come until next shift which could result in another ED visit. 10/03/2019 [facility] - PATIENT HAS A FOLLOW UP APT WITH DR VILLANUEVA Monday10/11/19 @ 9:00AM. 10/03/2019 [facility] - PATIENT ENDOCRINILOGIST- DR LIZZ FENG IN [facility] EM[facility] [phone]. LAST SAW PATIENT 04/18/19. - W NOTIFIED MANDA AT [facility] OF PATIENT DEVELOPMENT EDUCATOR, AND APT WITH NEUROLOGIST NEXT WEEK. - PATIENT DEVELOPMENT EDUCATOR WAS NOT AWARE OF ALL ED AND INPATIENT ADMISSIONS SINCE MARCH 2019. CHW REQUESTED ALL RECORDS TO BE SENT TO DR FENG OFFICE. E.D. VISIT COUNT (12 MO.) 20 [facility] Curry TOTAL 20 NOTE: Visits indicate total known visits. ED/UCC VISIT TRACKING (12 MO.) 11/04/2019 09:53 [facility] [place] TYPE: Emergency COMPLAINT: - WEAKNESS 10/13/2019 17:47 [facility] [place] TYPE: Emergency COMPLAINT: - SYNCOPE DIAGNOSES: - Allergy status to narcotic agent status - Syncope and collapse - Other snf (current) drug therapy - superintendent terminal (current) use of insulin - 1 Type 1 diabetes mellitus without complications 09/25/2019 09:06 [facility] [place] TYPE: Emergency COMPLAINT: - BLOOD SUGAR PROBLEM 09/17/2019 10:42 [facility] [place] TYPE: Emergency COMPLAINT: - LOW BLOOD SUGAR DIAGNOSES: - 1 Type 1 diabetes mellitus with hypoglycemia without coma - Allergy status to narcotic agent status - Allergy status to oth drug/meds/biol subst status - Other snf (current) drug therapy 08/03/2019 08:57 [facility] [place] TYPE: Emergency COMPLAINT: - DIABETIC ISSUE DIAGNOSES: - Other snf (current) drug therapy - 1 Type 1 diabetes mellitus with hypoglycemia without coma - Allergy status to narcotic agent status - Traum subdr hem w/o loss of consciousness, init - Presence of aortocoronary bypass graft - Fall same lev from slip/trip w strike agnst oth object, init - Headache - Other nonmedicinal substance allergy status - custodial (current) use of antithrombotics/antiplatelets 07/17/2019 08:44 [facility] [...] unspecified - Latex allergy status - Other snf (current) drug therapy - Cervicalgia - Personal [...] Personal history of nicotine dependence - Other snf (current) drug therapy 05/17/2019 10:09 [facility] [place] TYPE: Emergency COMPLAINT: - HIGH BLOOD SUGAR 04/18/2019 09:33 [facility] [place] TYPE: Emergency COMPLAINT: - FALL DIAGNOSES: - Disorientation, unspecified - Allergy status to narcotic agent status - Other snf (current) drug therapy - 1 Type 1 [...] mellitus w hypoglycemia w/o coma - Other terminal make up operator (current) drug therapy - Adverse effect of insulin and oral hypoglycemic drugs, init 03/18/2019 15:52 [facility] [place] TYPE: Emergency COMPLAINT: - VOMITING 03/01/2019 16:37 [facility] [place] TYPE: Emergency COMPLAINT: - DIZZINESS DIAGNOSES: - 1 Type 1 diabetes mellitus with hypoglycemia without coma - Other snf (current) drug therapy - Dizziness and giddiness - Presence of aortocoronary bypass graft - Oth allergy status, oth than to drugs and biolg substances - Allergy status to narcotic agent status - superintendent terminal (current) use of insulin 02/21/2019 15:04 [facility] [place] TYPE: Emergency COMPLAINT: - BS ISSUE DIAGNOSES: - Abrasion of scalp, initial encounter - 1 Type 1 diabetes mellitus without complications - Syncope and collapse - Syncope and collapse - Abrasion of scalp, initial encounter - Dizziness and giddiness - Unspecified fall, initial encounter - Other terminal make up operator (current) drug therapy - custodial (current) use of insulin - Allergy status [...] to drugs and biolg substances - Other snf (current) drug therapy - Dizziness and giddiness - Allergy status to narcotic agent status - Fracture of one rib, left side, init for clos fx 01/04/2019 14:49 [facility] [place] TYPE: Emergency COMPLAINT: - BLOOD SUGAR PROBLEM 11/16/2018 13:49 [facility] [place] TYPE: Emergency COMPLAINT: - DIABETIC PROBLEM DIAGNOSES: - 1 Type 1 diabetes mellitus without complications - custodial (current) use of insulin - Hyperglycemia, unspecified - Oth allergy status, oth than to drugs and biolg substances - Allergy status to narcotic agent status 11/06/2018 02:46 [facility] [place] TYPE: Emergency COMPLAINT: - FALL,DIABETIC ISSUES DIAGNOSES: - Hypoglycemia, unspecified - Allergy status to narcotic agent status - superintendent terminal (current) use of insulin - Oth allergy status, oth than to drugs and biolg substances - 1 Type 2 diabetes mellitus with hypoglycemia without coma - Adverse effect of insulin and oral hypoglycemic drugs, init - Encounter for immunization - Other snf (current) drug therapy INPATIENT VISIT TRACKING (12 MO.) 09/25/2019 13:07 [facility] [place] TYPE: Medical Surgical COMPLAINT: - DKA, STROKE DIAGNOSES: - superintendent terminal (current) use of insulin - Allergy status to narcotic agent status - Chronic pain syndrome - Hyperlipidemia, unspecified - Disorder of kidney and ureter, unspecified - Metabolic encephalopathy - Gastro-esophageal reflux disease without esophagitis - superintendent terminal (current) use of antithrombotics/antiplatelets - Epilepsy, unsp, not intractable, without status epilepticus - Presence of aortocoronary bypass graft - Hypokalemia - 1 Type 1 diabetes mellitus with ketoacidosis without coma - 1 Chronic kidney disease, stage 3 (moderate) - Hyperlipidemia, unspecified - 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 - Presence of aortocoronary bypass graft - Athscl heart disease of [place] coronary artery w/o ang pctrs - 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 - Athscl heart disease of [place] coronary artery w/o ang pctrs - Chronic pain syndrome - Other terminal make up operator (current) drug therapy - Gastro-esophageal reflux disease without esophagitis - 1 Chronic kidney disease, stage 3 (moderate) - 1 Type 1 diabetes mellitus with ketoacidosis without coma - Striking against unsp object w subsequent fall, subs encntr - Traum subdr hem w LOC of unsp duration, subs - Epilepsy, unsp, not intractable, without status epilepticus 07/17/2019 08:45 [facility] [place] TYPE: Observation COMPLAINT: - DKA DIAGNOSES: - Gastro-esophageal reflux disease without esophagitis - Acute kidney failure, unspecified - 1 Type 1 diabetes mellitus with ketoacidosis without coma - Other snf (current) drug therapy - Patient's noncompliance w oth medical treatment and regimen - Allergy status to narcotic agent status - custodial (current) use of insulin - 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 - 1 Chronic kidney disease, stage 3 (moderate) - Presence of aortocoronary bypass graft - Hyperglycemia, unspecified - Hyperlipidemia, unspecified - custodial (current) use of antithrombotics/antiplatelets - Athscl heart disease of [place] coronary artery w/o ang pctrs - Chronic pain syndrome 07/02/2019 15:16 [facility] [place] TYPE: Medical Surgical COMPLAINT: - DKA DIAGNOSES: - 1 Type 1 diabetes mellitus with ketoacidosis without coma - Metabolic encephalopathy - 1 Chronic kidney disease, stage 3 (moderate) - 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 - Chronic pain syndrome - custodial (current) use of antithrombotics/antiplatelets - Hyperlipidemia, unspecified - Gastro-esophageal reflux disease without esophagitis - superintendent terminal (current) use of insulin - Presence of aortocoronary bypass graft - Acute kidney failure, unspecified - Unspecified mood [affective] disorder - Encounter for immunization - Athscl heart disease of [place] coronary artery w/o neo pctrs - Other terminal make up operator (current) drug therapy - Allergy status to narcotic agent status - Patient's other noncompliance with medication regimen 05/17/2019 13:46 [facility] [place] TYPE: Observation COMPLAINT: - DKA DIAGNOSES: - Metabolic encephalopathy - Chronic pain syndrome - 1 Type 1 diabetes mellitus with ketoacidosis without coma - custodial (current) use of antithrombotics/antiplatelets - Athscl heart disease of [place] coronary artery w/o ang pctrs - Patient's noncompliance w oth medical treatment and regimen - Allergy status to narcotic agent status - 1 Chronic kidney disease, stage 3 (moderate) - Presence of aortocoronary bypass graft - Hyperlipidemia, unspecified - 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 - Gastro-esophageal reflux disease without esophagitis - Other snf (current) drug therapy - Unspecified mood [affective] disorder - custodial (current) use of insulin 03/31/2019 10:17 [facility] [place] TYPE: Observation COMPLAINT: - DKA DIAGNOSES: - Nausea with vomiting, unspecified - Chronic pain syndrome - Presence of aortocoronary bypass graft - 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 - 1 Type 1 diabetes mellitus with ketoacidosis without coma - Hyperlipidemia, unspecified - Metabolic encephalopathy - Athscl heart disease of [place] coronary artery w/o ang pctrs - 1 Chronic kidney disease, stage 3 (moderate) - superintendent terminal (current) use of antithrombotics/antiplatelets - Gastro-esophageal reflux disease without esophagitis - Patient's other noncompliance with medication regimen - Other terminal make up operator (current) drug therapy - custodial (current) use of insulin - Allergy status to narcotic agent status - Major depressive disorder, single episode, unspecified 03/18/2019 15:53 [facility] [place] TYPE: Observation COMPLAINT: - DKA DIAGNOSES: - Hyperlipidemia, unspecified - Other terminal make up operator (current) drug therapy - custodial (current) use of insulin - Metabolic encephalopathy - Athscl heart disease of [place] coronary artery w/o ang pctrs - 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 - 1 Chronic kidney disease, stage 3 (moderate) - Presence of aortocoronary bypass graft - Nausea with vomiting, unspecified - 1 Type 1 diabetes mellitus with ketoacidosis without coma - Allergy status to narcotic agent status - superintendent terminal (current) use of antithrombotics/antiplatelets - custodial (current) use of opiate analgesic 01/04/2019 17:46 [...] agent status - Gastro-esophageal laceration-hemorrhage syndrome - superintendent terminal (current) use of antithrombotics/antiplatelets - Patient's noncompliance w oth medical treatment and regimen - Athscl heart disease of [place] coronary artery w/o ang pctrs - 1 Type 1 diabetes mellitus with ketoacidosis without coma - superintendent terminal (current) use of antithrombotics/antiplatelets - 1 Chronic kidney disease, stage 3 (moderate) - Patient's noncompliance w oth medical treatment and regimen - Other snf (current) drug therapy - Toxic encephalopathy - Hyperlipidemia, unspecified - Presence of aortocoronary bypass graft - Disorder of kidney and ureter, unspecified - Hyperlipidemia, unspecified - Allergy status to narcotic agent status - Breakdown (mechanical) of insulin pump, initial encounter - Athscl heart disease of [place] coronary artery w/o ang pctrs - Presence of aortocoronary bypass graft - Other terminal make up operator (current) drug therapy - 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
--- NOTE | 2019-11-04 13:51 | NUR ---
RECEIVED PATIENT AT 13:45 PT OBTAINTED, BUT WHEN HE WAS MOVED TO BE HE AWAKEN AND WAS PULLING AT TUBES AND TRYING TO GET UP. PT WAS GIVEN 1MG ATIVAN AT THIS TIME AND INSULING DRIP INCREASED TO 13.2 AT THIS TIME. LAB HERE AT THIS TIME TO OBTAIN SAMPLE.
--- NOTE | 2019-11-04 14:54 | NUR ---
pt's BP 90/38, Dr Cancino notified. He feels it is due to the pt getting Ativan, requests we hold additional doses for now, continue IV fluids at current rate. No additional orders at this time. Pt remains in room with AUCTIONEER ART 1:1 observation.
--- NOTE | 2019-11-04 16:11 | NUR ---
PT BP HAS BEEN TRENDING LOW, DR VILLANUEVA CALLED WHEN A MANUAL OF 82/32 OBTAINED. NEW ORDERS RECEIVED. PT IS ABLE TO FOLLOW DIRECTIONS AT TIMES, BUT DOES NOT OPEN HIS EYES WHEN SPOKEN TOO OR DOES NOT TRY TO RESPOND VERBALLY AT THIS TIME. PT HAS A 1 TO 1 SITTER TO PROTECT LINES AND TUBES AT THIS TIME. 500MLS BOLUS OF NS STARTED AT THIS TIME. URINE OUTPUT HAS BEEN 55MLS THIS LAST HOUR. CBG CONTIOUES TO READ HIGH ON THE MONITOR. INSULINE DRIP CURRENTLY AT 26.4 UNITS/HOUR.
--- NOTE | 2019-11-04 16:37 | NUR ---
Attempted to see Ml, he is unable to answer questions and has a sitter in the room. Called Aline Simmons who is listed on the chart as health care proxy. She states she works for [employer] and he had requested her, but there isn't any legal documentation as his proxy. She states she can be notified when he is hospitalized, but doesn't have a legal say. Discussed my concern pt has visited the ER and admitted to hospital several times within the last few months. Suggested he needs to go to a SNF or [facility]. She states she discussed a GROUP HOME with him, [facility], and he agreed to go and view. She states she will talk with him about placement. Let her know I will also discuss with him when he is able to talk.
--- NOTE | 2019-11-04 17:25 | NUR ---
PT CONTIOUES TO HAVE 1 TO 1 SITTER TO PROTECT LINES AND TUBES AT THIS TIME. PT IS RESTLESS AND MOANS AT TIMES.
--- NOTE | 2019-11-04 18:02 | NUR ---
IT APPEARS THAT URINE AT TIMES IS LEAKING AROUND THE POWELL. LINE CHANGED AND PT REPOSITIONED AT THIS TIME. PT IS FOLLOWING DIRECTIONS AT TIMES AND THEN NOT AT ALL. INSULIN DRIP CONTIOUES TO INFUSE AT 35.2 UNITS/HOUR.
--- NOTE | 2019-11-04 18:39 | NUR ---
PT REMAINS ON THE INSULIN DRIP AND IVF'S. POWELL DRAINING CLEAR YELLOW URINE. POWELL AT TIMES VAPER LOCKS AND DOES NOT DRAIN WELL. BLOOP PRESSER IS INPROVING. DR VILLANUEVA AWARE. CBG'S Q 1 HOUR WHILE ON THE INSULIN DRIP.
--- NOTE | 2019-11-04 19:30 | NUR ---
REPORT RECEIVED FROM LEANA SALINAS, ASSUMED CARE OF pt.
--- NOTE | 2019-11-04 20:00 | NUR ---
CBG READING >600, INSULIN DRIP TITRATED TO 44 UNITS/HR. IV SITES FLUSHED DRIP AND IVF INFUSING WNL ORDERED. pt DROWSY, DOES NOT OPEN EYES TO VOICE, REPOSITIONING. RR 28. RN REMAINS IN ROOM FOR CLOSE MONITORING.
--- NOTE | 2019-11-04 20:12 | NUR ---
ASSESSMENT COMPLETE. HR TACHY, 115, REGULAR RHYTHM. POWELL EMPTIED 200 MLS YELLOW URINE. PHARMACY CUSTOMER CARE SPECIALIST IN ROOM. RN REMAINS IN ROOM FOR CLOSE MONITORING OF LINES, pt SAFETY.
--- NOTE | 2019-11-04 20:40 | NUR ---
ASSISTED PT WITH REPOSITIONING ONTO BACK. RT IN ROOM GIVING BREATHING TREATMENT. PT APPEARS MORE ALERT AND ORIENTED. KNOWS LOCATION AND DATE. GIVEN SUGAR FREE JELLO. REQUESTS MEDICATION FOR GENERALIZED PAIN. PRN TYLENOL GIVEN (SEE EMAR).
--- NOTE | 2019-11-04 21:05 | NUR ---
PT INSULIN DRIP TITRATED UP TO 48.4 FOR CRITICAL HIGH CBG.
--- NOTE | 2019-11-04 22:13 | NUR ---
CBG HIGH. INSULIN DRIP TITRATED TO 52.8 UNITS/HR. RIGHT EXTERNAL JUGULAR IV SITE FLUSHED, GOOD BLOOD RETURN. INSULIN DRIP INFUSING WNL. IVF INFUSING WNL. MERCHANDISE HANDLER IN ROOM FOR BLOOD DRAW. CURTAIN OPEN FOR CLOSE VIEW FROM NURSES STATION.
--- NOTE | 2019-11-04 23:16 | NUR ---
CBG 557. INSULIN DRIP TITRATED TO 57.2 UNITS/HR. INFUSING WNL. pt RESTING IN BED. OCCASIONAL MOANING, AND MOVEMENT OF EXTREMITIES. REPOSITIONED WITH 2 RN ASSIST. pt ABLE TO OPEN EYES SLIGHTLY TO VOICE. NOT ABLE TO CONVERSE IN FULL SENTENCES, MUMBLING, "YEAH" IN RESPONSE TO EDUCATION ON REPOSITIONING.
--- NOTE | 2019-11-05 00:06 | NUR ---
DR VILLANUEVA UPDATED ON PATIENTS LAB RESULTS. ORDERS TO STOP INSULIN DRIP AND CHANGE IN IV FLUIDS (SEE EMAR). LABS TO BE REDRAWN AT 0400.
--- NOTE | 2019-11-05 00:42 | NUR ---
IVF INFUSING WITH POTASSIUM RIDER ORDERED IN LEFT AC PIV. IV FLUSHED, GOOD BLOOD RETURN. pt ASSESSMENT COMPLETE. pt ABLE TO OPEN EYES TO VOICE. GENERALIZED WEAKNESS, ATTEMPT TO SQUEEZE HAND BILATERALLY, WEAK LOG YARD DERRICK OPERATOR. pt DROWSY, BACK TO SLEEP, EYES CLOSED. FINE CRACKLES RLL. REPOSITIONED TO LEFT SIDE. BED ALARM ON.
--- NOTE | 2019-11-05 02:00 | NUR ---
pt AWAKENS TO VOICE, CONTINUES TO ANSWER IN ONE WORD RESPONSES. pt DROWSY, PARTIALLY OPENING EYES INSTRUCTED. CBG 373. pt REPOSITIONED IN BED TO LEFT SIDE. IVF INFUSING WNL ORDERED. POWELL CATHTER DRAINING CLEAR YELLOW URINE. BED ALARM ON. CURTAIN OPEN FOR CLOSE MONITORING FOR pt SAFETY.
--- NOTE | 2019-11-05 03:13 | NUR ---
CBG 365. IVF INFUSING WNL ORDERED. pt ATTEMPTING TO SIT UP IN BED, GENERALIZED WEAKNESS, FALLS BACK TO BED. CONSOLABLE. NOT ABLE TO ANSWER ORIENTATION QUESTIONS. REORIENTATION PROVIDED. CURTAIN OPEN FOR CLOSE VIEW FROM NURSES STATION.
--- NOTE | 2019-11-05 03:35 | NUR ---
pt RESTLESS. ATTEMPTS TO SIT UP, PULLING AT CORDS, TUBING. PRN ANXIETY MEDICATION ADMINISTERED IV. RN IN ROOM FOR CLOSE MONITOR FOR pt SAFETY, MAINTAIN IV LINES. IVF INFSUING WNL LEFT AC. pt CONSOLABLE. ABLE TO STATE THAT HE'S AT [facility].
--- NOTE | 2019-11-05 04:26 | NUR ---
PHONE CALL TO MD. UPDATED ON URINE OUTPUT, VS, CBG. TELEPHONE ORDER TO HOLD INSULIN DRIP UNTIL LABS COME BACK. CONTINUE CURRENT CONTINUOUS FLUIDS AT 250 ML/HR AND CALL WITH RESULTS OF LABS, REPEATED BACK.
--- NOTE | 2019-11-05 05:00 | NUR ---
CBG 260. BLADDER SCAN FOR 0 MLS. 4MLS YELLOW URINE NOTED IN POWELL. MD PHONED, UPDATED OF LAB RESULTS, VS, URINE OUTPUT. NEW ORDERS REPEATED BACK, EMAR UPDATED. pt REPOSITIONED IN BED.
--- NOTE | 2019-11-05 05:40 | NUR ---
ENTERTAINMENT USHER RN NOTIFIED THAT IVF ORDERED IN ENTERTAINMENT USHER ROOM ONLY, TO BRING TO CCU FOR pt.
--- NOTE | 2019-11-05 06:05 | NUR ---
CBG 227. pt RESTING IN BED WITH EYES CLOSED. RR 24. POWELL WITH 29 MLS YELLOW URINE EMPTIED. IV FLUSHED WNL AND IVF BOLUS INFUSING ORDERED.
--- NOTE | 2019-11-05 07:55 | NUR ---
Sleeping, not awakened.
--- NOTE | 2019-11-05 08:04 | NUR ---
REPORT RECEIVED FROM LEANA TRACY. PT ASLEEP IN BED, APPEARS COMFORTABLE. 1\2NS w 20K RUNNING AT 500. BS CHECK 216. PT OPENS EYES TO VOICE BUT DID NOT ANSWER ANY QUESTIONS. HR REGULAR, NO EDEMA. LUNGS HAVE CRACKLES ON LR LOBE.
--- NOTE | 2019-11-05 08:53 | NUR ---
SPOKE WITH DR VILLANUEVA REGARDING LOW UO. ORDERED 500NS BOLUS. STARTED. IV APPEARS WNL.
--- NOTE | 2019-11-05 10:03 | NUR ---
ASSESSED BS 257 GIVEN S\S AND SCHEDULED INSULIN. VS STABLE. PT SNORING BUT OCCASIONALLY RESTLESS. POWELL DRAINING LIGHT YELLOW URINE NOW QS
--- NOTE | 2019-11-05 11:23 | NUR ---
CALLED DR VILLANUEVA REGARDING LOW UO. ORDERED SECOND HALF OF NS BOLUS. STARTED. LENNIE IN ROOM TO DO ABD. US.
--- NOTE | 2019-11-05 12:30 | NUR ---
PT IS MOSTLY UNRESPONSIVE AND MUST HAVE SOMETHING IN HIS MOUTH/THROAT. HE IS CONTINUALLY TRYING TO SPIT. WILL FOLLOW NEEDED
--- NOTE | 2019-11-05 14:16 | NUR ---
PT MOANING AND STATES HIS STOMACH HURTS. UNABLE TO RATE OR STATE EXACTLY WHERE. PT HAD SMALL DARK BM IN BED. GUIACED SLIGHTLY POSITIVE. GIVEN 4 UNITS INSULIN FOR BS 225.
--- NOTE | 2019-11-05 14:46 | NUR ---
PT NOT RESPONSIVE TO EDUCATION AT THIS TIME. WILL RETURN TO SEE PT AGAIN.
--- NOTE | 2019-11-05 15:00 | NUR ---
PATIENT NOTED TO BE ATTEMPTING TO GET UP OUT OF BED AGAIN. PT STATES, "I'VE GOT TO POTTY". PATIENT UP TO BSC WITH 2 PERSON ASSIST AND ABLE TO HAVE SOME MORE LIQUID BM. PT TRYING TO STAND UP AND NEEDING MANY REMINDERS TO JUST SIT AND HAVE HIS BM. PT MOANING AND APPEARING SOMEWHAT UNCOMFORTABLE. PT NOW BACK INTO BED AND ATTENDS IN PLACE. SIDE RAILS UP FOR SAFETY - CONTINUE TO MONITOR.
--- NOTE | 2019-11-05 17:09 | NUR ---
PT SLEEPING ON LEFT SIDE. IVF INFUSING WNL. EJ HAS HAM BLOOD RETURN AND IS SL. UO QS AT 50ML. VS STABLE. HAS HAD TWO BM THIS AFTERNOON. APPEARS MORE COMFORTABLE AFTER PAIN MED ADMINISTRATION.
--- NOTE | 2019-11-05 18:53 | NUR ---
CALLED DR VILLANUEVA REGARDING BS OF 179. ORDERED TO TURN DOWN 1\2NS +20K TO 150ML\HR AND ADD D5@50ML\HR. CONTINUE TO MONITOR TEMP OF 100.O. GAVE 3 UNITS INSULIN PER S\S.
--- NOTE | 2019-11-05 19:43 | NUR ---
IN ROOM FOR ASSESSMENT. PT HAS IV FLUID 500 ML BOLUS INFUSING AT THIS TIME. ALERT AND ORIENTED X4. PT HAS YET TO VOID. DENIES PAIN, BUT DOES FEEL SHORT OF BREATH. MAINTIANING SATURATIONS OF 99 PERCENT ON `1 L NC, WITH A RESP RATE OF 22. EXPIRATORY WHEEZES AND COARSENESS THROUGHOUT ALL AIR ZHONG, WORSE ON THE RIGHT. ASSISTED PT WITH REPOSITIONING. DISCUSSED PLAN OF CARE FOR NIGHT. CALL LIGHT WITHIN REACH. WILL CONTINUE TO CLOSELY MONITOR RESPIRATORY STATUS AND URINE OUTPUT.
--- NOTE | 2019-11-05 20:44 | NUR ---
PT WILL OCC FOLLOW COMMANDS AND SAY FEW WORDS OTHERWISE WILL OCC MOAN.DID SIT UP AT ONE POINT SAYING HE HAD TO PEE, CATHETER DRAINING WELL. SATS DEC TO 86%, 2 L NC APPLIED, DR VILLANUEVA AWARE. SATS NOW MID 90'S AFTER APPLIED. IV FLUIDS CHANGED PER ORDERS. CATH CARE DONE. ORAL CARE DONE.
--- NOTE | 2019-11-05 22:18 | NUR ---
ORAL CARE DONE. NEURO STATUS UNCHANGED, DID MOAN AND AFFIRM WAS IN PAIN THEN SETTLED.
--- NOTE | 2019-11-06 00:17 | NUR ---
PT MAKING FREQ HIGH PITCHED VOCALIZATIONS, THEN WILL SNORE. WILL ANSWER YES TO ALL QUESTIONS TO DIFFICULT TO TELL IF HAVING PAIN. DID TRY WARM BLANKET. PT DID NOT FLINCH WHEN ABD PALPATED. WAS GIVEN 2MG MORPHINE IV FOR COMFORT. ORAL CARE DONE.
--- NOTE | 2019-11-06 01:10 | NUR ---
HAS BEEN QUITER SINCE MORPHINE GIVEN
--- NOTE | 2019-11-06 02:35 | NUR ---
PT AWAKENED WITH INSULIN INJECTION. NOW MOANING FREQ AND DID TRY TO SIT UP. UNABLE TO SAY WHAT IS WRONG. PT GIVEN 2MG MORPHINE IV FOR DISCOMFORT.
--- NOTE | 2019-11-06 04:37 | NUR ---
AWAKENS WITH MINIMAL INTERVENTION IE TAKING TEMP AXILLARY. PT THEN BGINS TO MOAN, TRYING TO SIT UP. UNABLE TO SAY WHY. RR UP TO 28. HAS COURSE BREATH TONES ON R SIDE, HAS BEEN STAYING ON RT SIDE MOST OF SHIFT. ENCOURAGED TO COUGH WITH USE OF MOVEMENT AND ORAL CARE. PT TURNED TO L SIDE. IS VERY STIFF AND RESISTED TURNING. OXYMASK ON PT NOW AND 02 INC TO 5 L SATS DEC TO 87% WITH [address] PT GIVEN 2MG MORPHINE IV FOR PAIN
--- NOTE | 2019-11-06 05:09 | NUR ---
DR VILLANUEVA GIVEN UPDATED. 1/2SALINE WITH BICARB RATE DEC TO 75ML/HR
--- NOTE | 2019-11-06 06:29 | NUR ---
NO CHANGE MENTAL/NEURO STATUS. CONT TO MONITOR BS AND TREAT PER SLIDING SCALE.
--- NOTE | 2019-11-06 07:58 | NUR ---
ORAL CARE COMPLETED AT THIS TIME, PT JUST MOANS DURING THIS PROCESS. AT TIMES HE WILL BITE DOWN ON THE SPONGE AND THEN NEEDS REDIRECTED WITH TWO OR MORE VERBAL TO LET GO OF THE SPONGE. PT DOES NOT OPEN HIS EYES, AND DOES NOT FOLLOW DIRECTIONS WELL THIS AM. PT REMAINS ON OXY MASK AT 5L'S WITH A SPO2 91%.
--- NOTE | 2019-11-06 08:10 | NUR ---
In and attempted to speak with Ml. He moans when voice called, but does not awaken. Per staff he has remained this way from admission. Will see tommorrow.
--- NOTE | 2019-11-06 09:11 | NUR ---
PT APPEARS TO BE AWAKE, BUT DOES NOT SAY OF FOLLOW DIRECTIONS AT TIMES, HE WILL MOAN LOUDLY AND AT TIMES HAS A HIGH PITCHED MOAN.
--- NOTE | 2019-11-06 09:15 | NUR ---
[facility] CALLED AND STATED "WE HAVE BEEN TRYING TO MAKE CONTARCT WITH MARGARITA TO COME INTO SEE HIM. WE HAVE CALLED HIM AND SET APPOINTMENTS AND THEN HE IS NOT AT HOME OR HE WILL NOT ANSWER THE PHONE" NOW WE HAVE LEARNED HE IS IN THE HOSPITAL" " CAN YOU PLEASE CALL US WHEN HE IS DISCHARGED"
--- NOTE | 2019-11-06 10:26 | NUR ---
PT MEDICATED WITH 4MG MORPHINE AT THIS TIME DUE TO STAFF TRYING TO GET AN NEW IV SITE AT THIS TIME AND PT IS HAVING INCREASED MOANING. WAS ABLE TO OBTAIN NEW IV SITE IN RIGHT HAND BY Lupe SALCEDO CERTIFIED LACTATION EDUCATOR/MS LARRY.
--- NOTE | 2019-11-06 11:28 | NUR ---
UA SENT TO LAB AT THIS TIME.
--- NOTE | 2019-11-06 11:29 | NUR ---
PT WILL BE GOING TO CT AT THIS TIME. PT APPEARS TO BE RESTING COMFORTABLE AT THIS TIME
--- NOTE | 2019-11-06 11:59 | NUR ---
RETURNED FROM CT VIA BED. PT DID WELL WITH THIS ACTIVITY.
--- NOTE | 2019-11-06 12:57 | NUR ---
PT WAS ASLEEP, PETER FROM OR TO PLACE A ADDITIONAL IV SITE ON PT. PT BECAME AWAKE, MOANING. AFTER NEW IV SITE OBTAIN PT QUITED DOWN AGAIN. TURNED TO RIGHT SIDE.
--- NOTE | 2019-11-06 14:08 | NUR ---
PT TURNED TO HIS BACK AT THIS TIME, FOR THE MOST PART HE IS SLEEPING WITH SOME AWAKE TIMES, BUT APPEARS CONFUSED AND THEN WHEN YOU ASK HIM TO RELAX HE CAN, AND IF ASK TO TAKE A DEEP BREATH HE WILL. HOB ELEVATED TO AT LEAST 40-DEGREES AT THIS TIME. PT WILL FAL BACK TO SLEEP WHEN YOU LEAVE THE ROOM.
--- NOTE | 2019-11-06 14:08 | NUR ---
PT STILL UNRESPONSIVE, GOD BLESS HIM
--- NOTE | 2019-11-06 15:59 | NUR ---
PT TURNED TO HIS LEFT SIDE AT THIS TIME. POWELL DRAING CLEAR DILUTE URINE AT THIS TIME, HE IS HAVING GOOD RESULTS FROM THE LASIX 40MG THAT WAS GIVEN. PT AWAKENS AND TRYS TO TALK WITH STAFF. HE DOES NOT MAKE COMPLETE SENTENCES. AND HE CAN NOT ANSWER QUESTIONS. SO FAR HE AHS SAID "SHE I CAN DO THAT" BUT IS UNABLE TO COMPLETE TASK, OR "YES I KNOW WHERE I AM" BUT CAN NOT TELL YOU WHERE HE IS. THEN PATIENT WILL FALL BACK TO SLEEP.
--- NOTE | 2019-11-06 16:23 | NUR ---
CONTINUES NOT TO BE RESPONSIVE. WILL CHECK ON PT LATER.
--- NOTE | 2019-11-06 17:53 | NUR ---
pt snoring at this time, can be heard at the nursing station.
--- NOTE | 2019-11-06 18:30 | NUR ---
PT OPENED HIS EYE WHEN PRODUCT MANAGER MEDICAL DEVICE WAS IN THE ROOM NO VERBAL CONVERSATION NOTED AT THIS TIME, SOME MOANING NOTED. PT CONTIOUES TO HAVE GOOD URINE OUTPUT AT THIS TIME. PT REMAINS NPO AT THIS TIME, PT IS UNABLE TO EVEN HANDLE ORAL CARE DUE TO UNALBE TO FOLLOW DIRECTIONS.
--- NOTE | 2019-11-06 19:26 | EKG ---
[facility] [address] [place] [address] Signed Sinus tachycardia Possible Left atrial enlargement Left axis deviation Septal infarct (cited on or before 13-OCT-2019) Hyperacute T waves in the precordial leads Abnormal ECG When compared with ECG of 13-OCT-2019 18:03, Significant changes have occurred Confirmed by MURIEL VILLANUEVA MD ([id number]) on 11/06/2019 7:26:29 PM Electronically Signed By: MURIEL VILLANUEVA MD 11/06/19 1926 PATIENT NAME: MARGARITA PERDOMO Electrocardiogram DATE OF : 50 PHYSICIAN: MURIEL VILLANUEVA MD REPORT #: [id number] REPORT IS CONFIDENTIAL AND NOT TO BE RELEASED WITHOUT AUTHORIZATION
--- NOTE | 2019-11-06 19:27 | EKG ---
[facility] [address] [place] [address] Signed Sinus tachycardia Left anterior fascicular block Septal infarct , age undetermined Abnormal ECG When compared with ECG of 04-NOV-2019 12:23, (Unconfirmed) Sinus rhythm has replaced Wide QRS tachycardia Confirmed by MURIEL VILLANUEVA MD ([id number]) on 11/06/2019 7:27:16 PM Electronically Signed By: MURIEL VILLANUEVA MD 11/06/19 1927 PATIENT NAME: MARGARITA PERDOMO Electrocardiogram DATE OF : 50 PHYSICIAN: MUIREL VILLANUEVA MD REPORT #: [id number] REPORT IS CONFIDENTIAL AND NOT TO BE RELEASED WITHOUT AUTHORIZATION
--- NOTE | 2019-11-06 20:31 | NUR ---
PT AWAKENED WHEN PM CARES WHERE BEING DONE. WILL REPEAT PHRASES LIKE "WELL YES" BUT DOES NOT ANSWER QUESTIONS. WILL FOLLOW COMMANDS. ALLOWED TEETH TO BE BRUSHED AND SUCTIONED ORALLY. PT COUGHED UP LARGE AMT SPUTUM AND THEN ALLOWED SUCTIONING AND SPEC SENT. SPUTUM IS BROWN WITH RUST TINGE. REPOSTIONED.
--- NOTE | 2019-11-06 23:03 | NUR ---
AWAKE, TRYING TO SIT UP FEELS NEED TO VOID. REMINDED OF CATHETER BUT PT UNABLE TO COMPREHEND AT THIS TIME. REPOSITIONED UP IN BED. PT IS FOLLOWING COMMANDS BETTER. WILL COUGH ON REQUEST, COUGH IS LESS MOIST AND PRODUCTIVE AT THIS TIME.
--- NOTE | 2019-11-06 23:30 | NUR ---
HAS BEEN MOANING WITH RESP. NO OBVIOUS DISTRESS. DID COUGH PRODUCTIVLY LARGE AMT BLOOD TINGED SPUTUM. ORAL CARE DONE. PT IS COOPERATIVE. BREATH TONES ON RIGHT HAVE SCATTERED CRACKLES, ALMOST CLEAR ON LEFT.
--- NOTE | 2019-11-06 23:59 | NUR ---
A LITTLE QUIETER NOW. FEW CRACKLES R CHEST.
--- NOTE | 2019-11-07 01:12 | NUR ---
IS MORE ALERT AND TALKING MORE NOW. HAS POOR INSIGHT AND MEMORY.
--- NOTE | 2019-11-07 02:59 | NUR ---
SLEEPING, RESP REG, SAT 96% ON 4L OXYMASK.
--- NOTE | 2019-11-07 03:59 | NUR ---
AWAKE, MOANING SOFTLY. CANNOT GIVE REASON FOR MOANING AND DENIES PAIN. ANSWERS QUESTIONS BUT DOES NOT KNOW PLACE, DATE, TIME OR EVENT. ANSWERS TO NAME BUT LATER WAS UNABLE TO TELL ME WHAT HIS NAME IS. REORIENTED. IS COOPERATIVE. BREATH TONES HAVE SCATTERED CRACKLES THROUGH OUT. GIVEN ORAL CARE.
--- NOTE | 2019-11-07 12:30 | NUR ---
PATIENT BEDBATH COMPLETED. LINEN CHANGED. PATIENT ASSIST UP TO THE CHAIR WITH 2 RN STANDING-BY. PATIENT TOELRATED WELL. CLEAR LIQUID TRAY PROVIDED. ENSURE PROVIDED. PATIENT DENIES ANY OTHER NEEDS AT THIS TIME. TV ON. WILL CONTINUE TO CLOSELY MONITOR.
--- NOTE | 2019-11-07 14:00 | NUR ---
THIS N TOOK OVER PATIENT CARE AT THIS TIME. PATIENT IS RESTING IN BED AT THIS TIME WITH THE PROGRAM DIRECTOR/MORNING SHOW HOST AT THE BEDSIDE. WILL CONTINUE TO CLOSELY MONITOR.
--- NOTE | 2019-11-07 15:22 | NUR ---
PATIENT RESTING IN BED AT THIS TIME. PATIENT WORKED WITH PHYSICAL THERAPY AND TOELRATED WELL. PATIENT IS A LITTLE IMPULSIVE AT TIMES. REORIENT PATIENT TO WAITING FOR STAFF TO HAVE HIM STAND. NO OTHER NEEDS AT THIS TIME. WILL CONTINUE TO CLOSELY MONITOR.
--- NOTE | 2019-11-07 16:00 | NUR ---
PATIENT POWELL DC. PATIENT TOELRATED WELL. PATIENT RESTING IN BED. PATIENT ASSESSMENT REMAINS UNCHANGED. DC'D EJ IV. PATIENT NO LONGER NEEDS AND HAS GOOD IV ACCESS. FRESH WATER AT THE BEDSIDE. WILL CONTINUE TO CLOSELY MONITOR.
--- NOTE | 2019-11-07 16:14 | NUR ---
In and spoke with Ml. He is awake and able to converse, but cognition is slow. Has his R hand under his covers and seems to be massage his private parts during our entire conversation. Discussed pt.s admission and frequent admissions due to his diabetes. He states he has a cg daily during the week to assist him. Asked if he would go to a SNF for medication and diabetes stabalization. He declines. I then asked if he would be willing to go to and ASSISTED and he agrees. He chose [facility], declined [facility]. Called and spoke with Sas Developer Analyst, Rayne, from [facility]. She states he has funding from [facility] for placement at an [facility]. She would need to be notified if he agrees to placement. Called [facility] and spoke with Pooja. She agrees to evaluate him tomorrow either in the mid am or after lunch. Asked her to contact Jairo Mariano as I will be gone and she states she has the number. Rayne [facility] [phone]
--- NOTE | 2019-11-07 17:42 | NUR ---
PATIENT RESTING IN BED. DINNER ORDER. PATIENT DENIES ANY OTHER NEEDS AT THIS TIME. URINAL AT THE BEDSIDE. PATIENT HAS NOT VOIDED YET. WILL CONTINUE TO CLOSELY MONITOR.
--- NOTE | 2019-11-07 20:45 | NUR ---
BROUGHT PT OVER FROM CCU ALONG WITH HIS PERSONAL BELONGINGS. RR IS EVEN AND NONLABORED ON 2LNC. CALL LIGHT IS CLOSE AND PT IS ORIENTED TO THE ROOM. HE DENIES FURTHER NEEDS AT THIS TIME. CALL LIGHT IS CLOSE.
--- NOTE | 2019-11-07 22:00 | NUR ---
PT'S BED ALARM SOUNDED, HE WAS TRYING TO GET TO THE RESTROOM. REMINDED PT HE NEEDS TO CALL IF HE NEEDS TO USE THE RESTROOM. HIS BED WAS SOAKED IN URIN AND A URINAL WAS SITTING THERE EMPTY. NEW BEDDING IS NOW IN PLACE AND PT IS BACK TO BED. BED ALARM IS ON AND CALL LIGHT IS IN HIS HAND.
--- NOTE | 2019-11-08 00:14 | NUR ---
PATIENT RESTING QUIETLY SUPINE IN BED, RESPIRATIONS REGULAR AND EVEN, EYES CLOSED, RESPIRATIONS REGULAR AND EVEN, CALL LIGHT AND WATER GLASS IN REACH. PATIENT REMAINS ON 2L/NC.
--- NOTE | 2019-11-08 01:05 | NUR ---
PATIENT CALLED JUST TO BE SHOWN HOW TO PUT THE HEAD OF HIS BED ALL THE TRIXIE DOWN. PATIENT TAUGHT HOW TO DO THIS. CALL LIGHT IN REACH.
--- NOTE | 2019-11-08 02:35 | NUR ---
PATIENT CALLED TO HAVE ME HELP TURN OFF HIS TV WHICH I DID. NO OTHER NEEDS AT THIS TIME, CALL LIGHT AND WATER IN REACH.
--- NOTE | 2019-11-08 04:35 | NUR ---
PATIENT FINALLY RESTING QUIETLY AGAIN, EYES CLOSED RESPIRATIONS REGULAR AND EVEN. CALL LIGHT IN REACH. PATIENT HAS HAD GOOD ORAL INTAKE, BUT GETS CONFUSED AND GETS UP FAST, URINATES ALL OVER THE BED, HIMSELF, AND THE FLOOR AND HAS NOTHING LEFT WHEN WE GET INTO THE BATHROOM, EVEN WITH BED ALARM ON PATIENT GETS UP REALLY FAST AND IS RESTING QUIETLY AT THIS TIME, WITH EQUAL AND REGULAR RESPIRATIONS AND EYES CLOSED. CALL LIGHT IN REACH.
--- NOTE | 2019-11-08 07:10 | NUR ---
REPORT RECIEVED FROM SHIP OFFICER RN. PT IN BED AWAKE. NS AT 50 INFUSING ALONG WITH ABX. DENIES PAIN OR NEEDS. BED ALARM IN PLACE. CALL LIGHT IN REACH.
--- NOTE | 2019-11-08 08:50 | NUR ---
SPOKE WITH PATIENT IN ROOM. PATIENT AWAKE, SITTING UP IN BED. PATIENT STATES HE DOESN'T REMEMBER COMING TO THE HOSPITAL. PATIENT ORIENTED. DISCUSSED WITH PATIENT THE MULTIPLE ADMISSIONS AND THAT HE MIGHT BE SAFER LIVING SOMEWHERE THAT HE WOULD HAVE HELP WITH HIS CARE AND MEDICATIONS. PATIENT STATES "I BELIEVE YOU MIGHT BE RIGHT". DISCUSSED THAT OUR SIGNAL WIRER HAS SPOKEN WITH [employer] AND THEY WOULD HELP HIM WITH GETTING INTO ASSISTED LIVING SITUATION. HE STATES "THAT WOULD BE NICE". DISCUSSED POSSIBLE PLACES IN TOWN, HE STATES HE WANTS TO STAY LOCAL. HE DOES NOT HAVE A PREFERENCE. HE STATES "I'LL THINK ABOUT IT". DISCUSSED THAT [facility] HAS BEEN ASKED BY SIGNAL WIRER YESTERDAY TO COME AND SEE HIM. PATIENT IS AGREEABLE TO THIS. PATIENT ASKED IF I WOULD COME VISIT HIM IF HE WENT SOMEWHERE. DISCUSSED THAT WE DO NOT VISIT PATIENTS IN FACILITIES AFTER DISCHARGE. PATIENT DENIES QUESTIONS AT THIS TIME.
--- NOTE | 2019-11-08 09:16 | NUR ---
TALKED TO PATIENT ABOUT SHOWERING AFTER IV ANTIBIOTICS ARE FINISHED AT 1000 THEN UP TO CHAIR FOR LUNCH. CALL BUTTON IN REACH. FRESH ICE WATER. NO OTHER NEEDS AT THIS TIME.
--- NOTE | 2019-11-08 11:31 | NUR ---
pt out working with physical therapy.
--- NOTE | 2019-11-08 11:59 | NUR ---
PATIENT NOW ALERT ENOUGH TO EAT. CURRENT DIET IS 60 GRAM CONSISTENT CARB. AWAITING DISCHARGE PLAN HE NEEDS MORE HELP AT HOME. CONTINUE CURRENT DIET WHILE HERE.
--- NOTE | 2019-11-08 12:59 | NUR ---
SBA TO CHAIR FOR LUNCH. NS AT 50ML/HR INFUSING.
--- NOTE | 2019-11-08 14:09 | NUR ---
SBA BACK TO BED. PT TOLERATED WELL. BED ALARM IN PLACE. CALL LIGHT IN REACH.
--- NOTE | 2019-11-08 15:00 | NUR ---
PT TITRATED TO ROOM AIR. TOLERATING WELL SATURATION ABOVE 90%.
--- NOTE | 2019-11-08 15:38 | NUR ---
NOEMI AND SHAWNA PAINTER HERE FROM [facility] TO SEE PATIENT FOR POSSIBLE STAY AT THEIR FACILITY. INTRODUCED THEM TO PATIENT. FACE SHEET AND H&P GIVEN TO THEM. THEY WILL LET US KNOW MONDAY IF THEY WOULD HAVE AVAILABLE ROOM.
--- NOTE | 2019-11-08 17:00 | NUR ---
PT ASSISTED TO CHAIR FOR DINNER. CHAIR ALARM IN PLACE.
--- NOTE | 2019-11-08 17:40 | NUR ---
ORDERED POTASSIUM AND LASIX ADMINSTERED. PT TOLERATED WELL. FLUIDS DC'D PER ORDER. WATER REFRESHED. DENEIS NEEDS. CALL LIGHT IN REACH AND CHAIR ALARM IN PLACE.
--- NOTE | 2019-11-08 18:44 | NUR ---
PT HAD GOOD DAY. IUP TO CHAIR FOR MEALS. WORKED WELL WITH PT. TITRATED TO RA. LASIX ADMINISTERED. UO QS. SALINE LOCKED. BLOOD SUGARS GOOD.
--- NOTE | 2019-11-08 20:30 | NUR ---
coop with assessment, alert, watching tv, no c/o pain. sl patent. CBG 215m fluids and call light at bedside
--- NOTE | 2019-11-08 22:00 | NUR ---
LAND SURVEYOR ASSISTANT ROUNDING NOTE. PT RESTING IN BED WITH EYES CLOSED. PT DOES NOT WAKE WHILE PLANETARIUM SKY SHOW TECHNICIAN IN ROOM FOR IV PUMP ALARM. CALL LIGHT IN REACH. WHITE BOARD UPDATED.
--- NOTE | 2019-11-09 01:20 | NUR ---
RESTING, EYES CLOSED, NO RESP DISTRESS, ON ROOM AIR.CALL LIGHT AT BEDSIDE
--- NOTE | 2019-11-09 04:24 | NUR ---
PT WALKING UP TO RN STATION, STATES "I CAN'T SEEM TO FIND MY ROOM". PT ESCORTED BACK TO ROOM. URINE NOTED ON FLOOR, CLEANED UP. PT GOT BACK IN BED. RAILS UP, BED ALARM ON. NO OTHER NEEDS, PT EDUCATED ON USE OF CALL LIGHT, CALL LIGHT IN REACH.
--- NOTE | 2019-11-09 05:01 | NUR ---
Pt confused to place and situation at times, easily redirectable. bed alrm on due to impulsiveness. Tolerating diet well, no c/o adverse reaction to abx. SL intact and patent. Uses urinal plus dribbles, attends in place.. No c/o pain. call light and fluids at bedside
--- NOTE | 2019-11-09 05:15 | NUR ---
AWAKES EASILY, NO C/O PAIN, DISORIENTED TO PLACE AND SITUATION, REORIENTS EASILY, BED AND CHAIR ALARM DUE TO IMPULSIVITY AND HIGH FALL PRECAUTIONS. DRIBBLES AND HAS URINARY URGENCY, TOLERATING DIET WELL. CALL LIGHT AND FLUIDS AT BEDSIDE. SL PATENT, NO C/O ADVERSE REACFTION TO IV ABX.
--- NOTE | 2019-11-09 07:54 | NUR ---
Patient sitting on edge of bed. Alert and oriented yet needed direction. Helped patient put on new brief for frequent/urgent urination. Assisted patient with walking to the chair. Patient in chair with tray table in front of him and chair alarm activated. Call light in reach.
--- NOTE | 2019-11-09 09:03 | NUR ---
CHANGED HIS BED LINENS. ALSO SET HIS SHOWER UP. PATIENT IS SITTING UP IN CHAIR EATING HIS BREAKFAST. CHAIR ALARM ON.
--- NOTE | 2019-11-09 10:20 | NUR ---
Patient up in chair watching television. Completed OT. Alert and oriented to place and time. Able to state birthdate yet unable to state present age. Needs frequent redirection and encouraged to use call light when needing to use bathroom. Resting comfortably on RA. Spoke with patient about recieving medication assistance outside of the hospital to adequately control his T2DM. Patient states that he currently has 2 caregivers that visit daily.
--- NOTE | 2019-11-09 12:16 | NUR ---
Patient resting in bed, awaiting lunch. Pt impulsive and instructed to use call light when needing to get up. Patient on RA with sats at 94. Bed alarm set and rails up.
--- NOTE | 2019-11-09 15:03 | NUR ---
Patient attempting to get out of bed without using call light. Unable to help patient to bathroom in time. Patient saturated brief and floor. Still requires consistent redirection and reminders. Settled patient in bed. Rails up and call light within reach. Patient resting quietly presently listening to music. Sats at 96 on RA.
--- NOTE | 2019-11-09 16:21 | NUR ---
PATIENT IS IN THE SHOWER NURSE IS STANDING BY IN CASE HE NEEDS ANY HELP ALSO NURSE WASHED HIS HAIR.
--- NOTE | 2019-11-09 18:32 | NUR ---
Patient awake and resting in bed. Frequent gown and linen changes throughout the day dueto urgency of urination. Intake and output sufficient throughout shift. Chair and bed alarm necessary as patient is impulsive and neglects to use call light. Patient is pleasant and redirected easily, yet forgetful. Tolerated ABX administration well. SATS ranging from 92-96 on RA. Patient expressed desire to be discharged from hospital to "[facility]" facility in [facility], as discussed with him by case managment.
--- NOTE | 2019-11-09 19:30 | NUR ---
TV PRODUCTION ASSISTANT ROUNDING NOTE. DIRECTOR OF SPECIAL EVENTS TO ROOM FOR BED ALARM SOUNDING. PT ATTEMPTING TO VOID. RN STUDENT IN ROOM ASSISTING WITH URINAL. PT VOIDED. DENIES FURTHER NEEDS AT THIS TIME. BED ALARM ACTIVE. CALL LIGHT AND URINAL WITHIN REACH.
--- NOTE | 2019-11-09 20:54 | NUR ---
IN BED WATCHING TV, AWAKE, EASILY ORIENTED, AWARE OF SELF AND PLACE, BUT NOT SITUATION, HIGH FALL RISK PRECAUTIONS IN PLACE, BED ALARM ON. CBG 171 RECEIVED 3UNITS HUMALOG INSULIN. COOP WITH ASSESSMENT, 2 SL PATENT, FLUSHES EASILY. CALL LIGHT AND FLUIDS AT HANDS REACH
--- NOTE | 2019-11-09 23:59 | NUR ---
Pt resting, eyes closed, no resp distress, call light and fluids at bedside. Bed alarm on
--- NOTE | 2019-11-10 01:52 | NUR ---
resting, eyes closed,resp even unlabored, laying on r side, bed alarm on, call light and fluids at bedside
--- NOTE | 2019-11-10 03:36 | NUR ---
Resting, eyes closed, resp even unlabored. no distress. call light at hands reach. Bed alarm on, Fall risk precautions in place.
--- NOTE | 2019-11-10 04:58 | NUR ---
Pt has slept 1/2 of this shift. Confused to place and situation. reorientes easily, follows instructions, bed alrm on per fall risk precautions and impulsivity, uses urinal. bed linen changed x2 due to accidental urinary incontinence, attends in place. Tolerating diet and fluids well, no c/o n/v or pain. fluids and call light at bedside, sl x2 patent.
--- NOTE | 2019-11-10 07:10 | NUR ---
Bedside report received, orders acknowledged.
--- NOTE | 2019-11-10 08:19 | NUR ---
DID PATIENT'S BLOOD SUGAR CHECK. THAN GOT HIM UP WALKED TO THE BATHROOM WITH HIM HE CHANGED HIS ATTENDS. WASHED HIS FACE AND BRUSHED HIS TEETH. CHANGED HIS BED LINENS. PATIENT IS SITTING UP IN HIS CHAIR EATING HIS BREAKFAST. ALSO CHANGED HIS GOWN.
--- NOTE | 2019-11-10 08:45 | NUR ---
Patient sitting up in chair watching tv. AM medications given, assessment complete. Water refreshed, denies further needs. Call light within reach.
--- NOTE | 2019-11-10 09:30 | NUR ---
Patient sitting up in chair, sleeping. Respirations even and unlabored. Call light within reach.
--- NOTE | 2019-11-10 10:48 | NUR ---
Patient sleeping in chair, respirations even and unlabored. Call light within reach.
--- NOTE | 2019-11-10 11:35 | NUR ---
Patient sleeping in chair, respirations even and unlabored. Call light within reach.
--- NOTE | 2019-11-10 11:49 | NUR ---
PT in room to work with patient
--- NOTE | 2019-11-10 12:36 | NUR ---
Patient up to toilet with SBA, produced BM. Patient returned to chair, lunch delivered. BS of 294, 9 units of insulin given. Water refreshed, denies further needs at this time. Call light within reach.
--- NOTE | 2019-11-10 14:00 | NUR ---
Patient worked with PT, ambulated hallways. Saline locked, respirations even and unlabored with ambulation. Returned to chair, alarm in place. No needs at this time, call light within reach.
--- NOTE | 2019-11-10 17:30 | NUR ---
Patient sitting up in bed eating dinner. BS of 167, 3 units of insulin. PM medications given. Assessment complete. Patient denies needs at this time, call light within reach.
--- NOTE | 2019-11-10 18:41 | NUR ---
Patient sleeping in bed, respirations even and unlabored. Call light within reach.
--- NOTE | 2019-11-10 20:22 | NUR ---
in bed, turns self in bed, bed alrm on high fall risk precautions and impulsivity. Coop with assessment. sl patent. Condused to situationa nd date. Tolerating fluids well. call light at bedside
--- NOTE | 2019-11-11 00:34 | NUR ---
AWAKE, USING URINAL, VOIDING, NO C/OPAIN OR DIABETIC PROBLEMS. ALERT TO SELF, COOPERATIVE WITH PROCEDURES, BED ALARM ON,. TOLERATING FLUIDS WELL.
--- NOTE | 2019-11-11 02:53 | NUR ---
RESTING, EYES CLOSED, NO DISTRESS. CALL LIGHT ABD FLUIDS ATBEDSIDE. BED ALARM ON.
--- NOTE | 2019-11-11 04:34 | NUR ---
Resting, eyes closed, has used the urinal goes back to sleep. 2 SL patent. Resp even unlabored, call light and fluids at bedside. bed alarm on, high fall risk precautions inplace
--- NOTE | 2019-11-11 05:17 | NUR ---
Has slept since 2329, no resp distress, pleasant, follows instructions, used urinal. not using call light, turns self in bed, 2 sl intact. Tolerating liquids and diet well. no c/o n/v or pain. Bed alarm on high risk fall precautions due to impusivity and weak gait. Call light and fluids at bedside
--- NOTE | 2019-11-11 05:27 | NUR ---
incontinent of urine, bed linen and gown changed, coop
--- NOTE | 2019-11-11 08:30 | NUR ---
PT SITTING UP IN BED AWAKE. ALERT AND ORIENTED TO ALL AT THIS TIME. DENIES PAIN OR OTHER CONCERNS. NOT MUCH OF AN APPETITE, ATE A FEW BITES OF BREAKFAST. ASSESSMENT COMPLETED. BED ALARM ON. CALL LIGHT WITHIN REACH.
--- NOTE | 2019-11-11 09:14 | NUR ---
SPOKE WITH HANDY MAN AMITA AT [facility]. SHE STATES THEY WILL TAKE PATIENT BUT THEY WANT TO DRAW UP A CONTRACT WITH HIM ON BEHAVIORS. PATIENT IS KNOWN TO ADMINISTRATION THERE FROM THE PAST. SHE STATES THEY ALSO NEED TO TALK WITH [facility] REGARDING PAYMENT AND THEY ARE CLOSED TODAY DUE TO HOLIDAY. SHE STATES TOMORROW THEY WILL WORK ON THESE ISSUES FOR POSSIBLE MOVE IN SOMETIME THIS WEEK.
--- NOTE | 2019-11-11 10:20 | NUR ---
PT MEE HALLWAY WITH P.T., APPEARS TO BE LORNE WELL.
--- NOTE | 2019-11-11 14:20 | NUR ---
SPOKE WITH NOEMI PAINTER CANCELING AND CUTTING CONTROL CLERK [facility]. HE STATES THEY WILL TALK WITH [facility] TOMORROW REGARDING PAYMENT OPTIONS FOR PATIENT TO COME TO FACILITY. CM WILL CONTINUE TO FOLLOW.
--- NOTE | 2019-11-11 14:36 | NUR ---
PT LYING IN BED APPEARS TO BE SLEEPING. EYES CLOSED, RESP EVEN AND UNLABORED.
--- NOTE | 2019-11-11 16:21 | NUR ---
PT SITTING UP IN BED WATCHING TV. REPORTS HAVING BM ABOUT AN HOUR AGO, HAD ASSISTANCE FROM DAIRY INSPECTOR TO AMB TO AND FROM RESTROOM. DENIES NEEDS OR CONCERNS AT THIS TIME. CALL LIGHT WITHIN REACH.
--- NOTE | 2019-11-11 19:25 | NUR ---
BEDSIDE REPORT RECEIVED FROM LEANA HOROWITZ. pt RESTING IN BED WITH EYES CLOSED. BREATHING EQUAL AND UNLABORED. BED ALARM ON.
--- NOTE | 2019-11-11 21:30 | NUR ---
pt ASSESSMENT COMPLETE. CBG 205, SS INSULIN ADMINISTERED. URINAL EMPTIED. ICE WATER PROVIDED. ALERT AND ORIENTED X 4. NO ADDITIONAL REQUESTS. CALL LIGHT IN REACH. BED ALARM ON.
--- NOTE | 2019-11-12 01:09 | NUR ---
pt RESTING IN BED. EYES CLOSED. BREATHING UNLABORED. LIGHTS OFF IN ROOM. BED ALARM ON.
--- NOTE | 2019-11-12 03:10 | NUR ---
pt AWAKE. URINAL EMPTIED BY RUBEN SARGENT. ASSESSMENT COMPLETE. pt RATES PAIN 7/10 IN RIGHT SHOULDER, STATES "ALWAYS HURTS". WARM BLANKETS PROVIDED. pt ORIENTED TO ALL. THREE ATTEMPTS AT NEW PIV START PER POLICY, FAILED ATTEMPTS BY LEANA ROMERO AND THIS RN. CALL LIGHT IN REACH. BED ALARM ON.
--- NOTE | 2019-11-12 05:20 | NUR ---
pt ALERT AND ORINETED X 4. BED ALARM IN PLACE FOR pt SAFETY. 1PA WITH FWW. INCONTINENT X 1. VOIDING QS IN URINAL. ACCU CHECK [facility]. SOME C/O CHRONIC SHOULDER PAIN, CONTROLLED WITH HEAT. pt HAS APPEARED TO REST WELL THROUGHOUT SHIFT.
--- NOTE | 2019-11-12 08:25 | NUR ---
PATIENT SITTING UP IN CHAIR. CALL LIGHT WITHIN REACH. NO OTHER NEEDS AT THIS TIME
--- NOTE | 2019-11-12 09:10 | NUR ---
PT SITTING UP IN RECLINER. AT APPROX 50% OF BREAKFAST INDEPENDENTLY, LORNE WELL. STATES HIS APPETITE IS STILL LIMITED BUT DENIES NAUSEA. DENIES PAIN OR OTHER CONCERN AT THIS TIME, ALERT AND ORIENTED TO ALL. CALL LIGHT WITHIN REACH. PT HAS BEEN CALLING APPROPRIATELY THIS AM.
--- NOTE | 2019-11-12 09:24 | NUR ---
PATIENT SITTING UP IN CHAIR. RN IN ROOM. VITAL SIGNS AND I&O DONE. PATIENT DID NOT VOID DURING THIS PERIOD. RN NOTIFIED. CALL LIGHT WITHIN REACH. NO OTHER NEEDS AT THIS TIME
--- NOTE | 2019-11-12 10:10 | NUR ---
PATIENT HAS BEEN HERE X 8 DAYS. ADMITTING DIAGNOSIS WAS DKA. HE DID NOT EAT FOR THE FIRST 3 DAYS SINCE HE WAS NOT ALERT ENOUGH TO EAT. HE IS NOW EATING ABOUT 50% OF HIS MEALS. DIET IS 60 GRAM CONSISTENT CARB. POC GLUCOSE THIS AM WAS 130. THE PLAN IS FOR HIM TO GO TO [facility] FOR HEALING UPON DISCHARGE. HE CANNOT TAKE CARE OF HIMSELF AT HOME. CONSISTENT MEALS WILL HELP KEEP HIS BLOOD SUGARS STABLE. WILL CONTINUE TO MONITOR.
--- NOTE | 2019-11-12 10:15 | NUR ---
HAD A LONG DISCUSSION WITH MARGARITA REGARDING HIS DIABETES, HE STATES "I KNOW HOW TO DEAL WITH MY DIABETES I HAVE HAD IT FOR YEARS SINCE I WAS 11 SO I KNOW ABOUT THAT. I JUST DON'T KNOW WHAT I AM DOING TO GET MYSELF SICK AND HAVING ISSUES ALL THE TIME." WE DISCUSSED HIS ROUTINE FOR TAKING HIS INSULIN. HE STATES "I HAVE NO TRANSPORTATION TO GO GET INSULIN SYRINGES OR THE NEEDLES FOR THE PENS SOMETIMES. I HAVE BEEN USING MY SYRINGES LATELY AND DRAWING UP MY INSULIN FROM A BOTTLE. I TAKE 20 UNITS OF LEVIMER EVERY MORNING." THEN WE STARTED TALKING ABOUT IF HE TAKES HIS BLOOD SUGAR HOW DOES HE DETERMINE HOW MUCH OF HIS REGULAR INSULIN TO TAKE. PT STATES "I TAKE 10 UNITS THEN RECHECK MY BLOOD SUGAR IN A WHILE AND TAKE 10 MORE UNTIL IT STARTS TO COME DOWN". WE TALKED ABOUT SLIDING SCALES AND HE STATES "IN ALL THE YEARS I'VE HAD THIS I HAVE NEVER EVER SEEN A SLIDING SCALE." I BROUGHT UP ONE OF HIS OLD CHARTS AND SHOWED HIM A SLIDING SCALE AND HE STATED HE HAD NEVER SEEN THAT AND DR LESTER HAS NEVER GIVEN HIM A SLIDING SCALE TO USE. I SAID TO HIM THAT IF DR LESTER HAS NEVER GIVEN HIM ONE THEN HE SHOULD BE USING THE LAST ONE HE WAS GIVEN HERE IN THE HOSPITAL. PATIENTS STATES HE HAS NEVER RECIEVED ONE. THEN WE STARTED TALKING ABOUT WHAT HE DOES WITH HIS DC INSTRUCTIONS. HE STATED "I LOOK AT THE FIRST PAGE, MAYBE THE SECOND THEN THROW THEM AWAY, I ALREADY KNOW ABOUT MY DIABETES, SO WHY SHOULD I KEEP THAT PAPER, I ALREADY KNOW IT." PT ABLE TO VERBALIZE THE NEED FOR THIS SLIDING SCALE AND THE IMPORTANCE OF NEEDING IT AFTER WE CONTINUED TO DISCUSS HOW IT COULD ACTUALLY KILL HIM. 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 WILL VISIT HIM AGAIN.
--- NOTE | 2019-11-12 10:20 | NUR ---
Called and left a message with Rayne at [facility] for fu for placement of Ml at [facility]. She had stated he is authorized for [facility]. Just needed to let her know if he wanted to be placed.
--- NOTE | 2019-11-12 11:20 | NUR ---
PT SITTING UP IN RECLINER. DROWSY BUT ALERT AND ORIENTED. DENIES PAIN OR OTHER CONCERNS. CALL LIGHT WITHIN REACH.
--- NOTE | 2019-11-12 11:59 | NUR ---
Called and left second message with Francisco J BOYDy as I have not received a return call. Stated my concern, pt from past experience leaves when he tires of staying at the hospital. Message left, asked her to return my call.
--- NOTE | 2019-11-12 12:29 | NUR ---
RECEIVED A MESSAGE AT [phone] [facility] STATING SHE WAS RETURNING MY CALL. I CALLED HER BACK AT [phone] AND LEFT A MESSAGE THAT WE ARE TRYING TO REACH HER IN REGARDS TO PATIENT AND HIS BEING ACCEPTED AT [facility] AND ASKING HER IF SHE HAS SPOKEN WITH THEM REGARDING PAYMENT. ASKED SHE CALL ME OR MARIA D IN DISCHARGE PLANNING OR FACILITY AND SPEAK WITH NOEMI, IVY OR AMITA.
--- NOTE | 2019-11-12 12:40 | NUR ---
Received call from Rayne. She states pt has been authorized to admit to [facility]. Called and spoke with Lyndsey and asked if there is a bed avaialable today. She states not today and possible not tomorrow. She will let me know tomorrow. Received a call from Jairo Mariano, Lyndsey called her and they can take Ml on .
--- NOTE | 2019-11-12 12:43 | NUR ---
PATIENT SITTING UP IN BED. COAT PADDER IN ROOM. VITAL SIGNS AND I&O DONE. CALL LIGHT WITHIN REACH. NO OTHER NEEDS AT THIS TIME
--- NOTE | 2019-11-12 13:00 | NUR ---
PT SITTING UP AT EDGE OF BED EATING LUNCH. REPORTS LITTLE APPETITE AT THIS TIME. USING URINAL APPROPRIATELY TO VOID. CALL LIGHT WITHIN REACH.
--- NOTE | 2019-11-12 14:51 | NUR ---
PT LYING IN BED ON BACK, EYES CLOSED, APPEARS TO BE SLEEPING. RESP EVEN AND UNLABORED. BED ALARM ON. CALL LIGHT WITHIN REACH.
--- NOTE | 2019-11-12 15:36 | NUR ---
YOEL MEANS WITH Christos GARCIA
--- NOTE | 2019-11-12 15:40 | NUR ---
PATIENT AMBULATING IN THE HALLWAY WITH PHYSICAL THERAPIST. LINENS CHANGED. NO OTHER NEEDS AT THIS TIME
--- NOTE | 2019-11-12 16:59 | NUR ---
PATIENT SITTING UP IN CHAIR. VITAL SIGNS AND I&O DONE. CALL LIGHT WITHIN REACH. NO OTHER NEEDS AT THIS TIME
--- NOTE | 2019-11-12 18:02 | NUR ---
PT SITTING UP IN RECLINER EATING DINNER INDEPENDENTLY. GIVEN FRESH WATER. DENIES NEEDS OR CONCERNS. CALL LIGHT WITHIN REACH.
--- NOTE | 2019-11-12 19:30 | NUR ---
BEDSIDE REPORT RECEIVED FROM LEANA HOROWITZ. pt UP IN CHAIR, EYES CLOSED. BREATHING UNLABORED. CALL LIGHT AND PERSONAL SUPPLIES IN REACH.
--- NOTE | 2019-11-12 21:15 | NUR ---
VS and I&Os complete. BS check was done, reported to LEANA Benjamin. pt requested fresh ice water and nothing further at this time.
--- NOTE | 2019-11-12 21:51 | NUR ---
pt ASSESSMENT COMPLETE. 1PA BACK TO BED FROM CHAIR. WARM BLANKETS PROVIDED. CBG 206. CALL LIGHT IN REACH. BED ALARM ON. ICE WATER PROVIDED.
--- NOTE | 2019-11-13 00:39 | NUR ---
pt RESTING IN BED. EYES CLOSED, APPEARS TO BE SLEEPING. BREATHING UNLABORED. BED ALARM ON.
--- NOTE | 2019-11-13 02:51 | NUR ---
IN pt ROOM TO CHECK ON pt. URINAL IN BED WITH pt. pt AWAKENS EASILY TO VOICE. URINAL EMPTIED 625 MLS. NO INCONTINENCE OR SPILLS NOTED IN BED. CALL LIGHT IN REACH BED ALARM ON. NO ADDDITIONAL REQUESTS.
--- NOTE | 2019-11-13 04:54 | NUR ---
BED ALARM SOUNDING. pt ASSESSMENT COMPLETE. WARM PACK PROVIDED FOR CHRONIC SHOULDER PAIN. INCONTINENT IN BED, LINENS, ATTENDS, GOWN CHANGED. WARM BLANKETS AND ICE WATER PROVIDED. VSS. CALL LIGHT IN REACH. BED ALARM ON.
--- NOTE | 2019-11-13 07:45 | NUR ---
patient up to chair with one person assist and fww. patient washed hands and face. call button in reach. fresh ice water given. clean linens done at 0715 by night nurse. no other needs at this time.
--- NOTE | 2019-11-13 08:35 | NUR ---
MORNING ASSESSMENT DONE. PATIENT UP TO CHAIR FOR BREAKFAST, DENIES OTHER NEEDS. BG 108 AND NO S/S COVERAGE WITH BREAKFAST. CHAIR ALARM ON, CALL LIGHT WITHIN REACH.
--- NOTE | 2019-11-13 09:30 | NUR ---
STOPPED TO SEE PATIENT IN ROOM. CHW FROM HIS PCP CLIN[facility] WAS IN ROOM. DISCUSSED WITH PATIENT THAT HE WILL BE GOING TO [facility] TOMORROW. ASKED IF HE KNEW HOW HIS BED COULD GET TO FACILITY, IF HE HAD FAMILY OR FRIENDS WHO COULD MOVE IT. [facility] OFFERED TO HELP. ASKED HER TO CALL AMITA AT [facility] AND WORK WITH THEM. PATIENT HAD NO QUESTIONS AND WAS VISITING WITH CHW WHEN I LEFT.
--- NOTE | 2019-11-13 10:13 | NUR ---
patient sitting up in chair brushing his teeth. fresh ice water given. call button in reach.
--- NOTE | 2019-11-13 10:21 | NUR ---
PATIENT ATE 100% OF BREAKFAST. VITALS DONE AND PATIENT BACK TO BED.
--- NOTE | 2019-11-13 11:23 | NUR ---
PATIENT UP WORKING WITH PHYSICAL THERAPY.
--- NOTE | 2019-11-13 14:12 | NUR ---
PATIENT RESTING IN BED, DENIES NEEDS AT THIS TIME.
--- NOTE | 2019-11-13 15:02 | NUR ---
PATIENT RESTING IN BED, DISCUSSING WHAT ITEMS FROM HOME WILL BE MOVED TO [facility]. [facility] FROM CLINIC IN TO SEE PATIENT.
--- NOTE | 2019-11-13 15:06 | NUR ---
Pt sleeping. Not awakened. Cont. plan to dc to [facility] tomorrow. Called and spoke with [facility]. Spoke with Lyndsey, CHW is assisting pt to move bed and furniture into [facility] tomorrow. He will not have clothing until Monday and she asks if we have any clothing we can send for pt. Pt will need a care ride as they cannot transport. Pt can arrive at 12 n tomorrow. Awaiting call from [employer] to see if we can provide some clothing on dc.
--- NOTE | 2019-11-13 17:07 | NUR ---
PATIENT RESTING IN BED. VITAL SIGNS AND I&O DONE. SETS UP TABLE FOR DINER. CALL LIGHT WITHIN REACH. NO OTHER NEEDS AT THIS TIME
--- NOTE | 2019-11-13 17:49 | NUR ---
PATIENT HAS DONE WELL TODAY, LESS IMPULSIVE. PLAN FOR PATIENT TO TRANSITION TO [facility] 06/14/19 AT NOON.
--- NOTE | 2019-11-13 19:23 | NUR ---
BEDSIDE REPORT RECEIVED FROM LEANA KAMARA. pt RESTING IN BED AWAKE. NO REQUESTS AT THIS TIME. BED ALARM ON.
--- NOTE | 2019-11-13 20:22 | NUR ---
ROUNDED CHARGE. PATIENTS BEDDING CHANGED. JADA AND THIS RN TOOK AND RECORDED VITALS. INTAKE AND OUPUT RECORDED. NO NEEDS NOTED. CALL LIGHT IN REACH.
--- NOTE | 2019-11-13 20:39 | NUR ---
VS and I&Os complete.
--- NOTE | 2019-11-13 21:03 | NUR ---
BS check was complete, the reading was 154.
--- NOTE | 2019-11-13 21:24 | NUR ---
pt ASSESSMENT COMPLETE. CBG 154, SS INSULIN ADMINISTERED ORDERED. pt ORIENTED TO ALL EXCEPT TIME OF DAY. REORIENTATION PROVIDED. BED ALARM ON. CALL LIGHT IN REACH.
--- NOTE | 2019-11-13 23:54 | NUR ---
CHECKED ON pt. RESTING IN BED WITH EYES CLOSED. RR 20. BED ALARM ON.
--- NOTE | 2019-11-14 02:00 | NUR ---
URINAL EMPTIED. pt DOES NOT AWAKEN TO RN ENTERING ROOM. BREATHING UNLABORED. LIGHTS OFF IN ROOM. BED ALARM ON.
--- NOTE | 2019-11-14 05:02 | NUR ---
pt APPEARED TO SLEEP WELL THROUGHOUT SHIFT. BED ALARM IN PLACE. 1PA WITH FWW. VOIDING QS IN URINAL. NO IV ACCESS.
--- NOTE | 2019-11-14 05:41 | NUR ---
pt AWAKENS TO VOICE. URINAL EMPTIED. INCONTINENT IN BED, ATTENDS, BEDDING, GOWN CHANGED. pt UP TO CHAIR. ASSESSMENT COMPLETE. ICE WATER AND WARM BLANKET PROVIDED. CALL IN REACH.
--- NOTE | 2019-11-14 07:58 | NUR ---
Patient awake, up in chair. Resting comfortably on RA. Personal items and call light in reach. Chair alarm activated.
[2019-11-14] MEDS ORDERED: HUMALOG100 UNITS/ SUB-Q (09:15)
[2019-11-14] MEDS ORDERED: LEXAPRO10 MG PO (09:15)
[2019-11-14] MEDS ORDERED: ASPIRIN81 MG PO (09:15)
[2019-11-14] MEDS ORDERED: ROSUVASTATIN CA40 MG PO (09:15)
[2019-11-14] MEDS ORDERED: INSULIN SYRING1 EA16 MISC (09:15)
[2019-11-14] MEDS ORDERED: CLOPIDOGREL75 MG PO (09:15)
[2019-11-14] MEDS ORDERED: LYRICA100 MG PO (09:15)
[2019-11-14] MEDS ORDERED: FAMOTIDINE40 MG PO (09:15)
[2019-11-14] MEDS ORDERED: LANTUS100 UNITS/ SUB-Q (09:15)
[2019-11-14] MEDS ORDERED: KEPPRA500 MG PO (09:15)
--- NOTE | 2019-11-14 10:02 | NUR ---
Patient up in chair. Finished 100% of breakfast. ABX being administered IV. Patient oriented to place and time. Patient stated he was excited to be dischaged to new care facility today. Patient sats at 96 on RA. Chair alarm activated and call light within reach. PAtient denies needs at this time.
--- NOTE | 2019-11-14 11:32 | NUR ---
DC summary, progress notes, meds, face sheet scanned to Lyndsey at [facility] from Fax machine in discharge planning.
--- NOTE | 2019-11-14 12:04 | NUR ---
REPORT CALLED TO SHAHNAZ AT [facility]. ALL QUESTION AANSWERED. BLOOD SUGAR CHECK AND 9 UNITS INSULIN GIVEN. TOGO LUNCH WITH PT. KYLAH DIAZ CALLED. DISCHARGE PAPERS AND PERSCRIPTIONS SENT WITH PT.
--- NOTE | 2019-11-14 13:15 | NUR ---
PT IS ASLEEP, DRESSED FOR DC. PT WILL BE GOING TO [facility]. DID NOT WAKE, WILL FOLLOW NEEDED
--- NOTE | 2019-11-15 17:09 | NUR ---
Face sheet, ER notes, H&P with F@F, PT and OT eval and notes, orders sent to [facility] for resumption of HH. Notified of pt's new address.
== END 2019-11-14 12:00 | DRG 637 ==
LOC: ED 09:52 → CCU 12:56 → MS 11-07 20:45
PROVIDERS: ADMIT Internal Medicine
DX: E10.10 Type 1 diabetes mellitus with ketoacidosis without coma (principal); G93.41 Metabolic encephalopathy; K85.90 Acute pancreatitis without necrosis or infection, unspecified; J96.01 Acute respiratory failure with hypoxia; J69.0 Pneumonitis due to inhalation of food and vomit; N17.9 Acute kidney failure, unspecified; J90 Pleural effusion, not elsewhere classified; E10.22 Type 1 diabetes mellitus with diabetic chronic kidney disease; N18.3 Chronic kidney disease, stage 3 (moderate); I25.10 Atherosclerotic heart disease of native coronary artery without angina pectoris; E78.5 Hyperlipidemia, unspecified; K21.9 Gastro-esophageal reflux disease without esophagitis; D69.6 Thrombocytopenia, unspecified; G40.909 Epilepsy, unspecified, not intractable, without status epilepticus; E83.42 Hypomagnesemia; E83.39 Other disorders of phosphorus metabolism; G89.4 Chronic pain syndrome; F39 Unspecified mood [affective] disorder; E87.5 Hyperkalemia; Z79.02 Long term (current) use of antithrombotics/antiplatelets; Z79.4 Long term (current) use of insulin; Z95.1 Presence of aortocoronary bypass graft; Z88.5 Allergy status to narcotic agent; Z79.899 Other long term (current) drug therapy; Z91.19 Patient's noncompliance with other medical treatment and regimen
CPT/HCPCS: 36415; 70450; 71045; 71250; 74176; 76705; 80048; 80053; 80069; 80076; 81001; 82010; 82570; 82800; 82803; 83036; 83690; 83735; 83880; 84100; 84300; 84484; 84540; 85025; 87070; 87077; 87186; 87205; 93005; 93010; 93306; 94760; 96361; 96365; 96366; 96375; 97110; 97116; 97162; 97165; 97530; 99285-25; C9113; J0610; J1650; J1815; J1940; J1953; J2060; J2270; J2405; J2543; J3475; J3480; J7030; J7040; J7060; J7070